=== PATIENT | female | born 1955 | race Caucasian/White ===

== ENCOUNTER 2016-11-25 13:00 | Emergency (ER) | payer BC ==
[~2016-11-25] VITALS: Ht 172.7 cm; Wt 84.5 kg
[2016-11-25 13:00] VITALS: TEMP 36.5; Ht 172.7 cm; Wt 84.5 kg
[2016-11-25] MEDS ORDERED: LABETALOL HCL IV 5 MG/ML 20ML IV STA (13:32)
[2016-11-25] MEDS ORDERED: MECLIZINE HCL 25 MG TAB PO STA (13:32)
--- NOTE | 2016-11-25 13:46 | EMERGENCY ROOM VISIT NOTE ---
History Report prepared by Victoriano: Eugene Whatley Under the Supervision of: Dr. Maegan Roberts M.D. First contact with patient: 13:21 Chief Complaint: VERTIGO Stated Complaint: VERTIGO/ANXIETY History of Present Illness The patient is a 60 year old female who presents to the Emergency Room with complaints of vertigo that occurred this morning. The patient was watching clips from her son's wedding when her vertigo symptoms began. She was diagnosed with positional vertigo in 2007 and has been doing therapy and treatments for it since. She has been handling it well. Her symptoms began with a racing heart , then progressed to nausea, lightheadedness, a motion sensation, and emesis. She states that fast rapid movement triggers her vertigo. She denies any cardiac history. She denies any visual changes, headaches, and stroke-like symptoms. She was placed onto Lisinopril and HCTZ a couple of weeks ago, with improvement to her blood pressure. Source of History: patient Onset: this morning Position: other (global) Symptom Intensity: moderate Quality: other (vertigo) Timing: resolved Modifying Factors (Worsening): other (Rapid movements) Associated Symptoms: + nausea, + vomiting, No headache Note: She denies any visual changes or stroke-like symptoms. She had a motion sensation and lightheadedness. Review of Systems See HPI for pertinent positives & negatives. A total of 10 systems reviewed and were otherwise negative. Past Medical & Surgical Medical Problems: (1) BPV (benign positional vertigo) (2) HTN (hypertension) Family History Omitted secondary to age. Social History Smoking Status: Never Smoker Smokeless Tobacco Use: No Drug Use: none Marital Status: Housing Status: lives with family Occupation Status: employed Current/Historical Medications Scheduled Lisinopril/Hctz (Zestoretic 20MG/12.5MG), 1 TAB PO QAM Allergies Coded Allergies: No Known Allergies (Unverified , 11/25/16) Physical Exam Vital Signs Date Time Temp Pulse Resp B/P Pulse Ox O2 Delivery O2 Flow Rate FiO2 11/25/16 15:36 79 18 152/101 98 11/25/16 15:00 85 20 167/105 100 Room Air 11/25/16 13:33 90 11/25/16 13:00 36.5 78 20 181/100 100 Room Air Physical Exam Vital signs reviewed. General: Well-appearing elderly, in no significant distress. HEENT: No scleral icterus, PERRLA, neck supple. Atraumatic. Cardiovascular: Regular rate and rhythm, no extra sounds. Markedly hypertensive. Pulmonary: Clear to auscultation bilaterally, normal work of breathing. Abdomen: Soft, nontender, nondistended, positive bowel sounds. Musculoskeletal: Atraumatic, no peripheral edema. Neurologic: Patient awake alert and oriented x 3, full strength in all 4 extremities. Cranial nerves 2 through 12 grossly intact. Skin: Warm, dry, no rash Medical Decision & Procedures ER Provider Diagnostic Interpretation: X-ray results as stated below per interpretation by me and the radiologist: CHEST ONE VIEW PORTABLE CLINICAL HISTORY: tachycardia, vertigo COMPARISON STUDY: No previous studies for comparison. FINDINGS: The bones soft tissues and hemidiaphragms are normal. The cardiomediastinal silhouette is normal. The lungs are clear. The pulmonary vasculature is normal. IMPRESSION: Negative chest. Electronically signed by: Ryan Ogden M.D. 11/25/2016 2:22 PM Dictated Date/Time: 11/25/2016 2:[address] NON[address]AST CT DOSE: 614.27 mGy.cm HISTORY: Mental status change vertigo, HTN TECHNIQUE: Multiaxial CT images of the head were performed without the use of intravenous contrast. Comparison: None. Findings: The paranasal sinuses and mastoid air cells are clear. The calvarium and skull base are intact. The ventricles and sulci are within normal limits. There is no mass, hematoma, midline shift, or acute infarct. Impression: No acute intracranial abnormality. Electronically signed by: Ryan Ogden M.D. 11/25/2016 3:16 PM Dictated Date/Time: 11/25/2016 3:15 PM Laboratory Results 11/25/16 13:30 Red Blood Count 5.11, Mean Corpuscular Volume 88.8, Mean Corpuscular Hemoglobin 31.1, Mean Corpuscular Hemoglobin Concent 35.0, Mean Platelet Volume 9.2, Neutrophils (%) (Auto) 60.6, Lymphocytes (%) (Auto) 26.8, Monocytes (%) (Auto) 10.9, Eosinophils (%) (Auto) 1.1, Basophils (%) (Auto) 0.3, Neutrophils # (Auto ) 2.17, Lymphocytes # (Auto) 0.96, Monocytes # (Auto) 0.39, Eosinophils # (Auto ) 0.04, Basophils # (Auto) 0.01 11/25/16 13:30 Test 11/25/16 13:30 White Blood Count 3.58 K/uL (4.8-10.8) Red Blood Count 5.11 M/uL (4.2-5.4) Hemoglobin 15.9 g/dL (12.0-16.0) Hematocrit 45.4 % (37-47) Mean Corpuscular Volume 88.8 fL (80-100) Mean Corpuscular Hemoglobin 31.1 pg (25-34) Mean Corpuscular Hemoglobin Concent 35.0 g/dl (32-36) Platelet Count 258 K/uL (130-400) Mean Platelet Volume 9.2 fL (7.4-10.4) Neutrophils (%) (Auto) 60.6 % Lymphocytes (%) (Auto) 26.8 % Monocytes (%) (Auto) 10.9 % Eosinophils (%) (Auto) 1.1 % Basophils (%) (Auto) 0.3 % Neutrophils # (Auto) 2.17 K/uL (1.4-6.5) Lymphocytes # (Auto) 0.96 K/uL (1.2-3.4) Monocytes # (Auto) 0.39 K/uL (0.11-0.59) Eosinophils # (Auto) 0.04 K/uL (0-0.5) Basophils # (Auto) 0.01 K/uL (0-0.2) RDW Standard Deviation 39.3 fL (36.4-46.3) RDW Coefficient of Variation 12.3 % (11.5-14.5) Immature Granulocyte % (Auto) 0.3 % Immature Granulocyte # (Auto) 0.01 K/uL (0.00-0.02) Anion Gap 7.0 mmol/L (3-11) Est Creatinine Clear Calc Drug Dose 82.0 ml/min Estimated GFR () 90.2 Estimated GFR (Non- 77.8 BUN/Creatinine Ratio 21.0 (10-20) Calcium Level 9.9 mg/dl (8.5-10.1) Magnesium Level 2.1 mg/dl (1.8-2.4) Total Bilirubin 1.0 mg/dl (0.2-1) Direct Bilirubin 0.2 mg/dl (0-0.2) Aspartate Amino Transf (AST/SGOT) 19 U/L (15-37) Alanine Aminotransferase (ALT/SGPT) 31 U/L (12-78) Alkaline Phosphatase 51 U/L (45-117) Total Protein 7.1 gm/dl (6.4-8.2) Albumin 4.5 gm/dl (3.4-5.0) Laboratory results per my review. Medications Administered Medications (Trade) Dose Ordered Sig/Chidi Route Start Time Stop Time Status Last Admin Dose Admin Meclizine HCl (Antivert Tab) 25 mg NOW STAT PO 11/25/16 13:32 11/25/16 13:35 DC 11/25/16 13:54 25 MG Labetalol HCl (Normodyne IV) 10 mg NOW STAT IV 11/25/16 13:32 11/25/16 13:35 DC 11/25/16 13:58 10 MG Ondansetron HCl (Zofran Inj) 4 mg NOW STAT IV 11/25/16 15:23 11/25/16 15:25 DC 11/25/16 15:36 4 MG HCTZ/Lisinopril (Prinzide 20-12.5MG Tab) 1 tab NOW STAT PO 11/25/16 15:41 11/25/16 15:43 DC 11/25/16 15:59 1 TAB ECG Indication: other (Vertigo) Rate (beats per minute): 81 Rhythm: normal sinus Findings: no acute ischemic change, no ectopy, other (Prolonged QTC of 483) ED Course 1321: Past medical records reviewed. The patient was evaluated in room B12. A complete history and physical examination was performed. 1332: Ordered Labetalol HCl 10 mg IV, Antivert Tab 25 mg PO 1523: Ordered Zofran Inj 4 mg IV 1527: I [place] Dr. Jacob [place] [facility]. Please see the consultation note for more information. 1541: Ordered Lisinopril/HCTZ 1 tab PO 1545: Upon reevaluation, the patient appeared to have improvement of her symptoms. I discussed findings with her. She verbalized agreement of the treatment plan. She was discharged home. Medical Decision Differential diagnosis: Etiologies such as benign positional vertigo, dehydration, hypovolemia, anemia, tumor, infection, hypoglycemia, electrolyte abnormalities, cardiac sources, intracerebral event, toxicologic, neurologic, hypertensive urgency as well as others were entertained. This patient was evaluated and appeared to be in no significant distress. IV access was obtained and laboratory work was drawn. The patient was placed on the pvc monitor and found to be in a normal sinus rhythm. She was also found be markedly hypertensive. Patient was medicated with 10 mg of IV labetalol and 25 mg of meclizine. Laboratory work reveals negative cardiac enzymes. EKG reveals no evidence of acute ischemia. On reevaluation the patient was feeling improved. I suspect she is more likely suffering from hypertensive urgency. The patient currently takes lisinopril/HCTZ 20/12.5. I discussed the case with the hospitalist, Dr. James who has recommended doubling this medication. The patient was informed and advised to take lisinopril/HCTZ 40/25 1 time daily. She'll follow-up with her physician, Dr. Ocasio, this week for reevaluation. The patient was advised to return to the ER immediately for worsening of symptoms or any medical concerns. Consults Time Called: 1524 Consulting Physician: Dr. James - [facility] Returned Call: 1527 He and I spoke at this time. He recommended doubling her Lisinopril/HCTZ. Impression Primary Impression: Hypertensive urgency Scribe Attestation The scribe's documentation has been prepared under my direction and personally reviewed by me in its entirety. I confirm that the note above accurately reflects all work, treatment, procedures, and medical decision making performed by me. Departure Information Dispostion Home / Self-Care Referrals Anya Ocasio M.D. (PCP) Forms HOME CARE DOCUMENTATION FORM, IMPORTANT VISIT INFORMATION, WORK / SCHOOL INSTRUCTIONS Patient Instructions My [facility] Additional Instructions Diagnosis: Hypertensive urgency Increase your lisinopril HCTZ 40/25mg daily Contact Dr Ocasio this week for reevaluation. Return to emergency for worsening of symptoms or any medical concerns.
[2016-11-25 13:48] LABS: BASO % 0.3 %; BASO ABS # 0.01 K/uL (0-0.2); COMPLETE YES; EOS % 1.1 %; HEMATOCRIT 45.4 % (37-47); IG% 0.3 %; LYMPH % 26.8 %; LYMPH ABS # 0.96 K/uL (1.2-3.4); MEAN CELL VOLUME 88.8 fL (80-100); MEAN CORPUSCULAR HEMOGLOBIN 31.1 pg (25-34); MEAN PLATELET VOLUME 9.2 fL (7.4-10.4); MONO % 10.9 %; NEUT % 60.6 %; PLATELET COUNT 258 K/uL (130-400); RED BLOOD COUNT 5.11 M/uL (4.2-5.4); WHITE BLOOD COUNT 3.58 K/uL (4.8-10.8)
[2016-11-25 14:15] LABS: CALCIUM 9.9 mg/dl (8.5-10.1); CREATININE 0.81 mg/dl (0.60-1.20); MAGNESIUM 2.1 mg/dl (1.8-2.4); POTASSIUM 3.3 mmol/L (3.5-5.1)
--- NOTE | 2016-11-25 14:23 | DIAGNOSTIC IMAGING REPORT ---
CHEST ONE VIEW PORTABLE CLINICAL HISTORY: tachycardia, vertigo COMPARISON STUDY: No previous studies for comparison. FINDINGS: The bones soft tissues and hemidiaphragms are normal. The cardiomediastinal silhouette is normal. The lungs are clear. The pulmonary vasculature is normal. IMPRESSION: Negative chest. Electronically signed by: Ryan Ogden M.D. 11/25/2016 2:22 PM Dictated Date/Time: 11/25/2016 2:21 PM
--- NOTE | 2016-11-25 15:17 | DIAGNOSTIC IMAGING REPORT ---
HEAD CT NONCONTRAST CT DOSE: 614.27 mGy.cm HISTORY: Mental status change vertigo, HTN TECHNIQUE: Multiaxial CT images of the head were performed without the use of intravenous contrast. Comparison: None. Findings: The paranasal sinuses and mastoid air cells are clear. The calvarium and skull base are intact. The ventricles and sulci are within normal limits. There is no mass, hematoma, midline shift, or acute infarct. Impression: No acute intracranial abnormality. Electronically signed by: Ryan Ogden M.D. 11/25/2016 3:16 PM Dictated Date/Time: 11/25/2016 3:15 PM
[2016-11-25] MEDS ORDERED: ONDANSETRON INJ 2 MG/ML 2 ML VIAL IV STA (15:23)
[2016-11-25] MEDS ORDERED: LISI-787 PO (15:32)
[2016-11-25 15:36] VITALS: BP 152/101; PULSE 79; O2SAT 98
[2016-11-25] MEDS ORDERED: LISINOPRIL/HCTZ 20/12.5MG TAB PO STA (15:41)
== END 2016-11-25 16:00 | disposition home or self-care (01) ==
LOC: C.EDB 13:00 → EDBD 13:00 → C.EDB 16:00
DX: I10 Essential (primary) hypertension (principal); H81.10 Benign paroxysmal vertigo, unspecified ear; Z79.899 Other long term (current) drug therapy

== ENCOUNTER → 2016-12-08 | Outpatient (CLI) | payer BC ==
[~2016-12-08] MED LIST: LISI-787 PO
== END ==
LOC: C.PAPS 12:34
PROVIDERS: ATTEND Obstetrics & Gynecology
DX: Z01.419 Encounter for gynecological examination (general) (routine) without abnormal findings (principal)

== ENCOUNTER → 2016-12-22 | Outpatient (CLI) | payer BC ==
--- NOTE | 2016-12-22 16:16 | MAMMOGRAPHY REPORT ---
BILATERAL DIGITAL SCREENING MAMMOGRAM WITH CAD: 12/22/2016 CLINICAL HISTORY: Routine screening. Patient has no complaints. TECHNIQUE: Current study was also evaluated with a Computer Aided Detection (CAD) system. Bilateral CC and MLO views were obtained. COMPARISON: Comparison is made to exams dated: 02/05/2013 mammogram, 01/16/2012 mammogram, 01/03/2011 m ammogram - [facility], 08/26/2008, 11/04/2004 mammogram, and 11/27/2002 mammogram - [facility]. BREAST COMPOSITION: There are scattered areas of fibroglandular density in both breasts. FINDINGS: No suspicious masses, calcifications, or areas of architectural distortion are noted in ei ther breast. There has been no significant interval change compared to prior exams. IMPRESSION: ACR BI-RADS CATEGORY 1: NEGATIVE There is no mammographic evidence of malignancy. A 1 year screening mammogram is recommended. The pa tient will receive written notification of the results. Approximately 10% of breast cancers are not detected with mammography. A negative mammographic report should not delay biopsy if a clinically suggestive mass is present. Serenity Khalil M.D. /:12/22/2016 15:54:55 Pipe Layer Helper: Lorie PEREZ(Raphael)(), [facility] letter sent: Normal 1/2 BI-RADS Code: ACR BI-RADS Category 1: Negative
== END | disposition home or self-care (01) ==
LOC: C.MAMM 15:25
PROVIDERS: ATTEND Obstetrics & Gynecology
DX: Z12.31 Encounter for screening mammogram for malignant neoplasm of breast (principal)

== ENCOUNTER 2024-06-01 12:18 | Inpatient (IN) ==
--- OUTSIDE RECORDS SUMMARY | 2024-06-01 12:21 | External Medical Summary | Continuity of Care Document ---
Author Name Unknown Organization [facility] [place] [id number] [place] [address] [phone] Care Team Providers Care Architect Naval Name Role Phone Anya Ocasio Primary Care Physician [phone] Encounter [facility] [id number] Date(s): 03/05/24 - 03/05/24 [facility] [address] Medical [facility] [address] [facility] [address] [place] [address] [phone] Encounter Diagnosis Atrial fibrillation, new onset(Discharge Diagnosis) - 03/05/24 Discharge Disposition: Home or Self Care Attending Physician: JANET Golden Kimberly A Allergies, Adverse Reactions, Alerts Substance Criticality Severity Reaction Reaction Severity Status Allergy Not found in Search 1 Facial Swelling Active 1Bell peppers of all colors Assessment and Plan Extracted from: Title:Hospital followup Author:JANET Golden Kim berly A Date:03/05/24 1.Atrial fibrillation, new onset STATUS:New diagnosis, uncertain prognosis -[place] out west [place] friends in -Developed "racing heart" in [place] on 02/19/24 -Symptoms lasted throughout the day, prompting ER evaluation. -Discovered to be in A. Fib with RVR, rate of 159 in ER. -Managed with IV Diltiazem and fluids but remained symptomatic -Unfortunately, continued to be in irregular rhythm so decision was made to admit, discharged on 02/20/24 -She did convert back to sinus rhythm later that night but unfortunately continued to experience paroxysmalA. Fib with RVR. -IV Diltiazem was held during admission due to significant hypotension (systolic readings in 80's). -Labs and CXR were unremarkable -She was discharged in improved condition on PO Diltiazem and Eliquis due to elevated CHADS score. -She has been tracking her BP and HR since discharge, occasionally noting runs of A. Fib lasting for a short duration -Denies any syncope, CP, SOB, dizziness but does have significant anxiety regarding her health. DATA:Labs reviewed. GOAL:Maintain stability. PLAN:Cont current monitoring. Change to Diltiazem [id number] daily continue Eliquis 5mg twice daily For now, continue Lisinopril. If BP drops under 110/70, hold Lisinopril ER precautions discussedifHR increases to 150's or greater and you are symptomatic Referral will be made to Dr. Vallecillo for additional management and testing Will order echocardiogram and Holter depending on Recommend short trips until cardiology followup. Stay hydrated as discussed Avoid excessive caffeine. Recommend no alcohol as well. Time spent on pre-visit plannin min Face to face time spent w/ patient: 40 min Time spent documenting pertinent clinical information into the EMR: 8 min Total time: 51 min Immunizations Given and Recorded Vaccine Date Status Refusal Reason SARS-CoV-2 (COVID-19) mRNA BNT-162b2 vax 1 05/16/21 Recorded pneumococcal 23-valent vaccine 2 03/30/21 Recorded SARS-CoV-2 (COVID-19) ChAdOx1 vaccine 09/29/20 Rec orded SARS-CoV-2 (COVID-19) ChAdOx1 vaccine 09/08/20 Rec orded zoster vaccine, inactivated 09/15/19 Given zoster vaccine, inactivated 06/03/19 Given tetanus/diphtheria/pertuss, acel (Tdap) 06/03/19 G iven pneumococcal 13-valent vaccine 06/03/19 Given influenza virus vaccine, inactivated 05/08/19 Give n 1Result Comment: 2022-08-10: Historical information-source unspecified 2Result Comment: 2022-08-10: Historical information-source unspecified Medications DilTIAZem (Eqv-Cardizem CD) 120 mg/24 hours oral capsule, extended release Start: 03/05/24 7:59:00 AM EDT, 1 cap, PO, Daily, Disp# 90 cap, Pharmacy: [id number] Start Date: 03/05/24 Stop Date: 06/03/24 Status: Ordered Eliquis 5 mg oral tablet Start: 03/05/24 7:14:00 AM EDT, 1 tab, PO, bid Start Date: 03/05/24 Status: Ordered Eliquis 5 mg oral tablet Start: 03/05/24 8:00:00 AM EDT, 1 tab, PO, bid, Disp# 180 tab, Pharmacy: [id number] Start Date: 03/05/24 Stop Date: 06/03/24 Status: Ordered ibandronate 150 mg oral tablet Start: 11/29/23 7:25:00 PM EDT, See Instructions, Disp# 3 tab, Refills: 3, TAKE 1 TABLET EVERY MONTH,Pharmacy: [facility] Start Date: 11/29/23 Status: Ordered lisinopril 10 mg oral tablet Start: 10/16/23 1:14:00 PM EDT, 1 tab, PO, Daily, Disp# 90 tab, Refills: 3, Pharmacy: [id number] Start Date: 10/16/23 Status: Ordered omeprazole 20 mg oral delayed release capsule Start: 03/05/24 8:17:00 AM EDT, 1 cap, PO, Daily, Disp# 90 cap, Pharmacy: [id number] Start Date: 03/05/24 Stop Date: 06/03/24 Status: Ordered Suprep Bowel Prep Kit oral liquid Start: 11/21/23 7:07:00 AM EDT, See Instructions, Disp# 354 mL, Refills: 0, Follow [facility] Pharmacy: [id number] Start Date: 11/21/23 Status: Ordered Vitamin D3 1000 intl units (25 mcg) oral capsule Start: 03/24/21 8:20:00 AM EDT, 1 cap, PO, Daily Start Date: 03/24/21 Status: Ordered Mental Status 03/05/24 Barriers to Learning one year None evide nt Mandatory Health Literacy Documentation Yes Health Literacy Communication Barriers N ever Primary Language Northern Irish Problem List Condition Confirmation Course Effective Dates Status H ealth Status Informant Hypertension, benign Confirmed Active Benign paroxysmal positional vertigo Confirmed Active Grade II diastolic dysfunction 1 Confirmed Active Difficulty swallowing solids Confirmed Active Heart murmur Confirmed Active Hernia, hiatal Confirmed Active IT band syndrome Confirmed Active Mild concentric left ventricular hypertrophy (LVH) 2 Confirmed Active Mild pulmonary hypertension 3 Confirmed Active Osteoarthritis of right hip Confirmed Active Osteoporosis Confirmed Active Trochanteric bursitis of right hip Confirmed Active Vitamin D insufficiency Confirmed Active 1echo aug 2022 2echo aug 2022 3echo aug 2022 PA pressure - 29 Diagnosis Diagnosis Type Effective Dates Health Status Cl inical Service Informant Atrial fibrillation, new onset Discharge Diagnosis 03/05/24 Non-Specified Procedures Procedure Date Related Diagnosis Body Site Status Colonoscopy 1, 2, 3 12/04/23 Compl eted EGD - esophagogastroduodenoscopy 4, 5 12/04/23 Completed DEXA (dual energy X-ray absorptiometry) of lateral spine 6 05/19/21 Completed Mammogram 7 05/19/21 Completed Bone density scan 8 04/10/19 Compl eted Cervical cytology brush 9 01/15/19 Completed Mammogram 10 11/26/18 Completed Colonoscopy 11 11/21/18 Completed Mammogram 12 12/22/16 Completed PAP test date 13, 14 12/08/16 Comp leted Chest x-ray 15 11/25/16 Completed EKG 16 11/25/16 Completed Emergency medical services 17 11/25/[address] brain w/o contrast 18 11/26/15 Completed Esophagogastroduodenoscopy Completed Repair of vaginal tear Co mpleted 1- One 3 mm polyp at the hepatic flexure, removed with a cold biopsy forceps. Resected and retrieved. - One 3 mm polyp at 45 cm proximal to the anus, removed with a cold biopsy forceps. Resected and retrieved. - Redundant colon. - The examination was otherwise normal on direct and retroflexion views. 2C) Hepatic flexure polyp, polypectomy: Colonic mucosa with lymphoid aggregate, negative for intraepithelial neoplasm. D) Colon polyp at 45 cm, polypectomy: Hyperplastic polyp. 3Repeat colonoscopy in 5 years for family history of colon cancer. 4- Esophagogastric landmarks identified. - 1 cm hiatal hernia. - Mild Schatzki ring. Biopsied. - Erythematous mucosa in the antrum. Biopsied. - Normal examined duodenum. - The examination was otherwise normal. 5A) Gastric antrum, biopsy: Congestion and epithelial repair compatible with reactive gastropathy-healing erosive gastritis. COMMENT: No Helicobacter pylori organisms can be identified on an immunohistochemical stain for H. pylori. B) Gastroesophageal junction, biopsy: Squamous mucosa with patchy, mild epithelial repair. Gastric columnar mucosa with mild chronic inflammation and epithelial repair. COMMENT: No intestinal metaplasia or dysplasia identified. The histologic findings in B may correlate with symptoms of reflux. 6Impression: AP Spine L1-L4 is 0.811 g/cm2 with T score of -3.1 Femur Neck Left is 0.808 g/cm2 with T score of -1.7. Femur Neck Right is 0.764 g/cm2 with T score of -2.0. Femur Total Left is 0.840 g/cm2 with T score of -1.3 Femur Total Right is 0.784 g/cm2 with T score of -1.8. Z - score of 1.5, this patient's BMD is low for someone of this age 7There is no mammographic evidence of malignancy 8AP spine L1- L4 is 0.794 with a T score of -3.2 Femur Neck left is 0.829 with a Tscore of -1.5 Femur Neck right is 0.765 with a Tscore of -2.0 Femur Total Mean is 0.769 with a T score of -1.9 Z score of -1.6 , this patients BMD is low for someone of this age 9Negative for intraepithelial lesion or malignancy. 10acr bi-rads category 2: benign there is no mammographic evidence of malignancy. a 1 yr screening mammogram is recommended. (11/26/18). the patient will receive written notification of the results 11A few diverticula were found in the sigmoid colon 12No malignancy. One year screening recommended. 13Negative for intraepithealial lesion or malignancy. 14normal exam 15negative 16normal sinus 17[facility] ER with vertigo and hypertension 18no acute intracranial abnormality Vital Signs Most recent to oldest [Reference Range]: 1 Heart Rate 76 bpm (03/05/24 7:15 AM) Respiratory Rate 17 br/min (03/05/24 7:15 AM) Blood Pressure 154/94mmHg (03/05/24 7:15 AM) Cuff Pulse Pressure 60 mmHg (03/05/24 7:15 AM) Social History Social History Type Response Smoking Status Never smoked cigaret lucinda Sex Female Sex Representation Female (finding) FCM Outpt Note * JANET Golden, Fernanda Wade: PERFORM Event Display: FCM Outpt Note Authored Date: [id number] Chief Complaint F/u hospital - Afib History of Present Illness Patient is a 68 yo [place]. A. fib: -traveling out west with friends in [place] -Developed "racing heart" in [place] on 02/19/24 -Symptoms lasted throughout the day, prompting ER evaluation. -Discovered to be in A. Fib with RVR, rate of 159 in ER. -Managed with IV Diltiazem and fluids but remained symptomatic -Unfortunately, continued to be in irregular rhythm so decision was made to admit, discharged on 02/20/24 -She did convert back to sinus rhythm later that night but unfortunately continued to experience paroxysmalA. Fib with RVR. -IV Diltiazem was held during admission due to significant hypotension (systolic readings in 80's). -Labs and CXR were unremarkable -She was discharged in improved condition on PO Diltiazem and Eliquis due to elevated CHADS score. -She has been tracking her BP and HR since discharge, occasionally noting runs of A. Fib lasting for a short duration -Denies any syncope, CP, SOB, dizziness but does have significant anxiety regarding her health. Review of Systems ROS per HPI Physical Exam Vitals & Measurements HR:76(Monitored) RR:17 BP:154/94 SpO2:98% PHQ2 Data(Data Documented on:03/05/2024 07:14) Emotional health assessment NEGATIVE Gen Appearance: Well developed, well nourishedNAD. A&O x 3. HEENT: NCAT. EOMI. Neck supple. No thyromegaly palpable. Lymph: No submandibular, posterior or anterior cervical adenopathy. CV: RRR. No murmurs, rubs, or gallops. Lungs: CTAB. No wheezing, rales or rhonchi. Chest rises symmetrically. Abdomen: Scaphoid. No rashes.NABS x 4. Soft. Non-tender. No CVA tenderness bilaterally.No masses palpable. Ext: No LE edema. + 2 posterior tibial pulses. Skin: [place]. Supple. Good turgor. Assessment/Plan 1.Atrial fibrillation, new onset STATUS:New diagnosis, uncertain prognosis -traveling out west with friends in [place] -Developed "racing heart" in [place] on 02/19/24 -Symptoms lasted throughout the day, prompting ER evaluation. -Discovered to be in A. Fib with RVR, rate of 159 in ER. -Managed with IV Diltiazem and fluids but remained symptomatic -Unfortunately, continued to be in irregular rhythm so decision was made to admit, discharged on 02/20/24 -She did convert back to sinus rhythm later that night but unfortunately continued to experience paroxysmalA. Fib with RVR. -IV Diltiazem was held during admission due to significant hypotension (systolic readings in 80's). -Labs and CXR were unremarkable -She was discharged in improved condition on PO Diltiazem and Eliquis due to elevated CHADS score. -She has been tracking her BP and HR since discharge, occasionally noting runs of A. Fib lasting for a short duration -Denies any syncope, CP, SOB, dizziness but does have significant anxiety regarding her health. DATA:Labs reviewed. GOAL:Maintain stability. PLAN:Cont current monitoring. Change to Diltiazem [id number] daily continue Eliquis 5mg twice daily For now, continue Lisinopril. If BP drops under 110/70, hold Lisinopril ER precautions discussedifHR increases to 150's or greater and you are symptomatic Referral will be made to Dr. Vallecillo for additional management and testing Will order echocardiogram and Holter depending on Recommend short trips until cardiology followup. Stay hydrated as discussed Avoid excessive caffeine. Recommend no alcohol as well. Time spent on pre-visit plannin min Face to face time spent w/ patient: 40 min Time spent documenting pertinent clinical information into the EMR: 8 min Total time: 51 min Problem List/Past Medical History Ongoing Benign paroxysmal positional vertigo Difficulty swallowing solids Grade II diastolic dysfunction Heart murmur Hernia, hiatal Hypertension, benign IT band syndrome Mild concentric left ventricular hypertrophy (LVH) Mild pulmonary hypertension Osteoarthritis of right hip Osteoporosis Trochanteric bursitis of right hip Vitamin D insufficiency Procedure/Surgical History EGD - esophagogastroduodenoscopy| Service Date: 4Colonoscopy| Service Date: 4DEXA (dual energy X-ray absorptiometry) of lateral spine| Service Date: 05/19/2021Mammogram|Service Date: 05/19/2021one density scan| Service Date: 04/10/2019Cervical cytology brush| Service Date: 01/15/2019Mammogram| Service Date: 11/26/2018Colonoscopy| Service Date: 11/21/2018Mammogram| Service Date: 12/22/2016PAP test date| [facility]| Service Date: 11/25/2016EKG| Service Date: 11/25/2016Chest x-ray| Service Date: 11/25/2016CT brain w/o contrast| Service Date: 11/26/2015EsophagogastroduodenoscopyRepair of v aginal tear Medications apixaban(Eliquis 5 mg oral tablet), 5 mg= 1 tab, PO, bid apixaban(Eliquis 5 mg oral tablet), 5 mg= 1 tab, PO, bid cholecalciferol(Vitamin D3 1000 intl units (25 mcg) oral capsule), 25 mcg= 1 cap, PO, Daily dilTIAZem(DilTIAZem (Eqv-Cardizem CD) 120 mg/24 hours oral capsule, extended release), 120 mg= 1 cap, PO, Daily ibandronate(ibandronate 150 mg oral tablet), See Instructions lisinopril(lisinopril 10 mg oral tablet), 1 tab, PO, Daily magnesium sulfate/potassium sulfate/sodium sulfate(Suprep Bowel Prep Kit oral liquid), See Instructions omeprazole(omeprazole 20 mg oral delayed release capsule), 20 mg= 1 cap, PO, Daily Allergies Allergy Not found in SearchFacial Swelling Social History Smoking Status Never smoked cigarettes Alcohol - Comments: red wine - 2 glasses a night. 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 Home/Environment Lives with:Spouse - Comments: 4 kids - [facility], Steven - [place], Manuelito - [place], Sai -[place]. Sister in [place] Other - Comments: none Family History Alcoholism: Father. Antiphospholipid syndrome: Sister. Breast cancer: Mother. Dementia: Father. Rectal cancer: Mother. Schizophrenia: Mother. TIA: Father. Health Status Family Member(s) Immunizations Vaccine Date Status SARS-CoV-2 (COVID-19) mRNA BNT-162b2 vax 05/16/2021 Recorded Comments : 2022-08-10: Historical information-source unspecified pneumococcal 23-valent vaccine 03/30/2021 Recorded Comments : 2022-08-10: Historical information-source unspecified SARS-CoV-2 (COVID-19) ChAdOx1 vaccine 09/29/2020 Recorded SARS-CoV-2 (COVID-19) ChAdOx1 vaccine 09/08/2020 Recorded zoster vaccine, inactivated 09/15/2019 Given zoster vaccine, inactivated 06/03/2019 Given tetanus/diphtheria/pertuss, acel (Tdap) 06/03/2019 Given pneumococcal 13-valent vaccine 06/03/2019 Given influenza virus vaccine, inactivated 05/08/2019 Given Recommendations Health Maintenance Pending(in the next year) OverDue Medicare Annual Wellness Visit due08/10/23and every 1year Adult Influenza Vaccine due01/20/24and every 1year Due Adult COVID-19 Vaccination due03/05/24Unknown Frequency Adult Social Determinants of Health Screening due03/05/24Unknown Frequency Due In Future Body Mass Index not due until10/08/24and every Satisfied(in the past 1 year) Satisfied Body Mass Index on10/08/23.Satisfied by LAM Rocha Donna Breast Cancer Screening on01/03/24.Satisfied by VIVIANA Anthony Lynnae Lipid Screening on10/08/23.Satisfied by Contributor_system, [employer] Electronic Signature on File Electronically Reviewed/Signed by: Fernanda Golden PA-C Author Signature Dt/Tm:03/05/2024 08:50 AM Department of Family Medicine [facility] Patient Care team information Care Team Personnel Name: MD Ocasio Madhavi Position: Physician - Family Med Member Role: Primary Care Provider Address: [address] [place] [address] Care Team Related Persons Name: TATO SORENSON Name: TATO SORENSON
--- OUTSIDE RECORDS SUMMARY | 2024-06-01 12:21 | External Medical Summary | Continuity of Care Document ---
Author Name Unknown Organization [facility] [place] [facility] 1 MB [id number] [place] [address] JAMAL SHERMAN [phone] Care Team Providers Care Clean Room Operator Name Role Phone Fernanda Golden Primary Care Physician [phone] [id number] Date(s): 05/13/24 - 05/13/24 [facility] [place] [facility] 1 MB [id number] [facility] [place] - Main Building [address] [facility] [place] [id number] [phone] Discharge Disposition: Home or Self Care Attending Physician: MD He Soraya M Referring Physician: MD He Soraya M Allergies, Adverse Reactions, Alerts Substance Criticality Severity Reaction Reaction Severity Status Allergy Not found in Search 1 Facial Swelling Active 1Bell peppers of all colors Immunizations Given and Recorded Vaccine Date Status Refusal Reason influenza virus vaccine, inactivated 04/16/24 Raúl rded influenza virus vaccine, inactivated 05/08/19 Give n SARS-CoV-2 (COVID-19) mRNA BNT-162b2 vax 1 05/16/21 Recorded pneumococcal 23-valent vaccine 2 03/30/21 Recorded SARS-CoV-2 (COVID-19) ChAdOx1 vaccine 09/29/20 Rec orded SARS-CoV-2 (COVID-19) ChAdOx1 vaccine 09/08/20 Rec orded zoster vaccine, inactivated 09/15/19 Given zoster vaccine, inactivated 06/03/19 Given tetanus/diphtheria/pertuss, acel (Tdap) 06/03/19 G iven pneumococcal 13-valent vaccine 06/03/19 Given 1Result Comment: 2022-08-10: Historical information-source unspecified 2Result Comment: 2022-08-10: Historical information-source unspecified Medications DilTIAZem (Eqv-Cardizem CD) 120 mg/24 hours oral capsule, extended release Start: 04/22/24 2:14:00 PM EDT, 1 cap, PO, bid, Disp# 180 cap, Refills: 3, [facility]acy: [facility] Start Date: 04/22/24 Stop Date: 04/17/25 Status: Ordered Eliquis 5 mg oral tablet Start: 03/26/24 9:37:00 AM EDT, 1 tab, PO, bid, Disp# 180 tab, Refills: 3, Pharmacy: [facility] Start Date: 03/26/24 Status: Ordered flecainide 50 mg oral tablet Start: 04/15/24 1:56:00 PM EDT, 1 tab, PO, q12h, Disp# 180 tab, Refills: 1, Pharmacy: [facility] Start Date: 04/15/24 Stop Date: 10/12/24 Status: Ordered ibandronate 150 mg oral tablet Start: 11/29/23 7:25:00 PM EDT, See Instructions, Disp# 3 tab, Refills: 3, TAKE 1 TABLET EVERY MONTH,Pharmacy: [facility] Start Date: 11/29/23 Status: Ordered lisinopril 10 mg oral tablet Start: 10/16/23 1:14:00 PM EDT, 1 tab, PO, Daily, Disp# 90 tab, Refills: 3, Pharmacy: [id number] Start Date: 10/16/23 Status: Ordered omeprazole 20 mg oral delayed release capsule Start: 03/05/24 8:17:00 AM EDT, 1 cap, PO, Daily, Disp# 90 cap, Pharmacy: [id number] Start Date: 03/05/24 Stop Date: 06/03/24 Status: Ordered Vitamin D3 1000 intl units (25 mcg) oral capsule Start: 03/24/21 8:20:00 AM EDT, 1 cap, PO, Daily Start Date: 03/24/21 Status: Ordered Problem List Condition Confirmation Course Effective Dates [...] 3echo aug 2022 PA pressure - 29 Procedures Procedure Date Related Diagnosis Body Site [...] or malignancy. 14normal exam 15negative 16normal sinus 17[facility] ER with vertigo and hypertension 18no acute intracranial abnormality Results Radiology Reports * Exam Date Time Procedure Performing Provider Status 05/13/24 2:04 PM Echo Stress, Exercise Solange Martinez; Final Notes: (Echo Stress, Exercise) Reason For Exam: starting flecainide, r/o CAD Echo Stress, Exercise Report Signatures Stress ECG Finalized by Stevie Hutchinson MD on 05/13/2024 02:45 PM Echo Finalized by Stevie Hutchinson MD on 05/13/2024 02:45 PM Stress ECG Promoted to Fellow Dr. Claudia Becerra DO on 05/13/2024 02:32 PM Echo Promoted to Fellow Dr. Claudia Becerra DO on 05/13/2024 02:32 PM [place] Act 112: No-No further action needed Summary 1. Negative Exercise Stress Echocardiogram for ischemia at 89 % MPHR. 2. Exercise tolerance for age and gender is in the 95th percentile. 3. Small, circumferential pericardial effusion is noted (no evidence of tamponade). It was not present on the prior TTE dated 09/06/2022. Supervising: Liu Spangler MS BMI: 23.26 Patient Info Name: VERONICA SORENSON Age: 68 years : 1955 Gender: Female Ht: 171 cm Wt: 68 kg BSA: 1.80 m2 Technical Quality: Fair Exam Date: 05/13/2024 1:25 PM Exam Location: Echo Lab-OP Patient Status: Outpatient Staff Ordering Physician: Cassie He Brain Wave Technician: RAAD Ruiz Attending Physician: Cassie He Study Info CPT 33430 - Indications - starting flecainide, r/o CAD I2510 - Coronary artery disease without angina pectoris Procedure(s) * An Exercise stress echocardiogram was performed. Exam Type: Exercise Stress ECG Summary Negative exercise ECG for ischemia. Protocol: You Rest HR: 81 bpm Peak HR: 134 bpm Rest Sys BP: 132 mmHg Peak Sys BP: 157 mmHg Max Pred HR: 150 bpm % Max Pred HR: 89 % Target HR: 128 bpm Max RPP: 21,038 bpm*mmHg Torres Score: 6 Target HR Summary: Patient's target heart rate was achieved BP Response: Normal blood pressure response Termination Reason: Fatigue Cardiac Symptoms: None Max ST Seg Deviation: 0.00 mm Total Time: 6 min : 0 sec Rest [place] BP: 84 mmHg Peak [place] BP: 78 mmHg Angina Score: None Total METS: 7.00 Stress ECG Details Resting ECG Normal sinus rhythm - RSR' V1 and V2. Stress ECG No abnormal ST/T wave changes with exercise. Arrhythmias Rare PACs. Stress Echo Findings Left Ventricle Left ventricle becomes smaller and more vigorous with exercise. Normal LV wall motion response to exercise. Normal augmentation of all wall segments without evidence of ischemia with stress. Left Ventricle Normal left ventricular size and systolic function with no regional wall motion abnormalities. Estimated ejection fraction 60-65%. Right Ventricle Normal right ventricular size and function. Pericardium Small pericardial effusion WITHOUT evidence of tamponade. Venous Name Value Normal IVC/SVC IVC Diameter (Insp 2D) 0.5 cm IVC Diameter (Exp 2D) 2.3 cm <=2.1 IVC Diameter Percent Change (2D) 79 % >=50 Ventricles Name Value Normal LV Dimensions 2D/MM IVS Diastolic Thickness (2D) 1.0 cm 0.6-0.9 LVID Diastole (2D) 3.7 cm 3.3-5.1 LVIW Diastolic Thickness (2D) 1.0 cm 0.6-0.9 LVID Systole (2D) 2.2 cm 2.2-3.5 LV Mass (2D Cubed) 111.38 g 67.00-162.00 LV Mass Index (2D Cubed) 0.01 g/cm2 0.00-0.01 Relative Wall Thickness (2D) 0.52 LV Fractional Shortening/Ejection Fraction 2D/MM LV Fractional Shortening (2D) 42 % 27-45 Final Signed by:MD Jasper, Stevie Faria Signed (Electronic Signature):05/13/2024 1:25 p Social History Social History Type Response Smoking Status Never smoked cigaret lucinda Sex Female Sex Representation Female (finding) Cardiology * Contributor_system, MUSE01: VERIFY, PERFORM Event Display: Exercise Testing Authored Date: Please click on link to see image. Patient Care team information Care Team Personnel Name: JANET Golden Kimberly A Position: Physician Asst Exmpt - Family Med Member Role: Primary Care Provider Address: [facility] [address] [address] Care Team Related Persons Name: TATO SORENSON Name: TATO SORENSON
--- OUTSIDE RECORDS SUMMARY | 2024-06-01 12:21 | External Medical Summary | Continuity of Care Document ---
Author Name Unknown Organization [address] Address [address] [place], [place] [id number] Care Team Providers Care Cable Inspector Name Role Phone Fernanda Golden Mauro Primary Care Physician [phone] [id number] Date(s): 04/25/24 - 04/25/[address], [address] [place] [address] [phone] Encounter Diagnosis Afib(Discharge Diagnosis) - 04/25/24 Discharge Disposition: Home or Self Care Attending Physician: MD Neri, Cassie Reardon Allergies, Adverse Reactions, Alerts Substance Criticality Severity [...] bid, Disp# 180 cap, Refills: 3, [facility] Start Date: 04/22/24 Stop Date: 04/17/25 Status: Ordered Eliquis 5 mg oral tablet Start: 03/26/24 9:37:00 AM EDT, 1 tab, PO, bid, Disp# 180 tab, Refills: 3, Pharmacy: [facility] Start Date: 03/26/24 Status: Ordered flecainide 50 mg oral tablet Start: 04/15/24 1:56:00 PM EDT, 1 tab, PO, q12h, Disp# 180 tab, Refills: 1, Pharmacy: [facility] Start Date: 04/15/24 Stop Date: 10/12/24 Status: Ordered ibandronate 150 mg oral tablet Start: 11/29/23 7:25:00 PM EDT, See Instructions, Disp# 3 tab, Refills: 3, TAKE 1 TABLET EVERY MONTH,Pharmacy: [facility] Start Date: 11/29/23 Status: Ordered lisinopril 10 mg oral tablet Start: 10/16/23 1:14:00 PM EDT, 1 tab, PO, Daily, Disp# 90 tab, Refills: 3, Pharmacy: [id number] Start Date: 10/16/23 Status: Ordered omeprazole 20 mg oral delayed release capsule Start: 03/05/24 8:17:00 AM EDT, 1 cap, PO, Daily, Disp# 90 cap, Pharmacy: [id number] Start Date: 03/05/24 Stop Date: [...] Diagnosis Diagnosis Type Effective Dates Health Status Clini migel Service Informant Afib Discharge Diagnosis 04/25/24 Non-Specified Procedures Procedure Date Related Diagnosis Body [...] or malignancy. 14normal exam 15negative 16normal sinus [facility] with vertigo and hypertension 18no acute intracranial abnormality Social History Social History Type Response Smoking Status Never smoked cigaret lucinda Sex Female Sex Representation Female (finding) Patient Care team information Care Team Personnel Name: JANET Golden Kimberly A Position: Physician Asst Exmpt - Family Med Member Role: Primary Care Provider Address: [facility] [address] [place] [address], [place] [address] Care Team Related Persons Name: TATO SORENSON Name: TATO SORENSON
--- OUTSIDE RECORDS SUMMARY | 2024-06-01 12:21 | External Medical Summary | Continuity of Care Document ---
Author Name Unknown Organization [address] Address [address] [place], [place] [id number] Care Team Providers Care Awake Overnight Monitor Name Role Phone Fernanda Golden Mauro Primary Care Physician [phone] Encounter [facility] [id number] Date(s): 04/03/24 - 04/03/[address], [address] [place] [address] [phone] Encounter Diagnosis A-fib(Discharge Diagnosis) - 04/03/24 Discharge Disposition: Home or Self Care Attending [...] 03/05/24 7:59:00 AM EDT, 1 cap, PO, bid, Disp# 180 cap, Pharmacy: [id number] Start Date: 03/05/24 Stop Date: 06/03/24 Status: Ordered Eliquis 5 mg oral tablet Start: 03/26/24 9:37:00 AM EDT, 1 tab, PO, bid, Disp# 180 tab, Refills: 3, Pharmacy: [facility] Start Date: 03/26/24 Status: Ordered ibandronate 150 mg oral tablet Start: 11/29/23 7:25:00 PM EDT, See Instructions, Disp# 3 tab, Refills: 3, TAKE 1 TABLET EVERY MONTH,Pharmacy: [facility] Start Date: 11/29/23 Status: Ordered lisinopril 10 mg oral tablet Start: 10/16/23 1:14:00 PM EDT, 1 tab, PO, Daily, Disp# 90 tab, Refills: 3, Pharmacy: [id number] Start Date: 10/16/23 Status: Ordered omeprazole 20 mg oral delayed release capsule Start: 03/05/24 8:17:00 AM EDT, 1 cap, PO, Daily, Disp# 90 cap, Pharmacy: [id number] Start Date: 03/05/24 Stop Date: 06/03/24 Status: Ordered Vitamin D3 1000 intl units (25 mcg) oral capsule Start: 03/24/21 8:20:00 AM EDT, 1 cap, PO, Daily Start Date: 03/24/21 Status: Ordered Mental Status 04/03/24 Barriers to Learning one year None evide nt Mandatory Health Literacy Documentation Yes Health Literacy Communication Barriers N ever Primary Language Montenegrin Problem List Condition Confirmation Course Effective Dates [...] Dates Health Status Clini migel Service Informant A-fib Discharge Diagnosis 04/03/24 Non-Specified Procedures Procedure Date Related Diagnosis Body [...] or malignancy. 14normal exam 15negative 16normal sinus 17[facility] ER with vertigo and hypertension 18no acute intracranial abnormality Vital Signs Most recent to oldest [Reference Range]: 1 Patient Weight 68.4 kg (04/03/24 10:41 AM) Heart Rate 77 bpm (04/03/24 10:41 AM) Respiratory Rate 18 br/min (04/03/24 10:41 AM) Blood Pressure 140/80mmHg (04/03/24 10:41 AM) Cuff Pulse Pressure 60 mmHg (04/03/24 10:41 AM) Social History Social History Type Response Smoking Status Never smoked cigaret lucinda Sex Female Sex Representation Female (finding) Patient Care team information Care Team Personnel Name: JANET Golden Kimberly A Position: Physician Asst Exmpt - Family Med Member Role: Primary Care Provider Address: [facility] [address] [address] Care Team Related Persons Name: TATO SORENSON Name: TATO SORENSON
--- OUTSIDE RECORDS SUMMARY | 2024-06-01 12:21 | External Medical Summary | Continuity of Care Document ---
Author Name Unknown Organization [facility] [address] [place] [address] JAMAL SHERMAN [phone] Care Team Providers Care Financial Investment Adviser Name Role Phone Anya Ocasio Primary Care Physician [phone] [facility] [id number] Date(s): 03/19/24 - 03/19/24 [facility] [place] [address], [address] JAMAL Castelan [address] [phone] Discharge Disposition: Home or Self Care Attending Physician: MD Clark Andrew Referring Physician: MD Ocasio Madhavi Allergies, Adverse Reactions, Alerts Substance Criticality Severity [...] cap, PO, Daily, Disp# 90 cap, Pharmacy: [id number] Start Date: 03/05/24 Stop Date: 06/03/24 Status: Ordered Eliquis 5 mg oral tablet Start: 03/05/24 7:14:00 AM EDT, 1 tab, PO, bid Start Date: 03/05/24 Status: Ordered Eliquis 5 mg oral tablet Start: 03/05/24 8:00:00 AM EDT, 1 tab, PO, bid, Disp# 180 tab, Pharmacy: [id number] Start Date: 03/05/24 Stop Date: 06/03/24 Status: Ordered ibandronate 150 mg oral tablet Start: 11/29/23 7:25:00 PM EDT, See Instructions, Disp# 3 tab, Refills: 3, TAKE 1 TABLET EVERY MONTH,Pharmacy: [facility] Start Date: 11/29/23 Status: Ordered lisinopril 10 mg oral tablet Start: 10/16/23 1:14:00 PM EDT, 1 tab, PO, Daily, Disp# 90 tab, Refills: 3, Pharmacy: [facility] Start Date: 10/16/23 Status: Ordered omeprazole 20 mg oral delayed release capsule Start: 03/05/24 8:17:00 AM EDT, 1 cap, PO, Daily, Disp# 90 cap, Pharmacy: [id number] Start Date: 03/05/24 Stop Date: 06/03/24 Status: Ordered Suprep Bowel Prep Kit oral liquid Start: 11/21/23 7:07:00 AM EDT, See Instructions, Disp# 354 mL, Refills: 0, Follow [facility] Pharmacy: [id number] Start Date: 11/21/23 Status: [...] or malignancy. 14normal exam 15negative 16normal sinus 17[facility] ER with vertigo and hypertension 18no acute intracranial abnormality Social History Social History Type Response Smoking Status Never smoked cigaret lucinda Sex Female Sex Representation Female (finding) Patient Care team information Care Team Personnel Name: MD Ocasio Madhavi Position: Physician - Family Med Member Role: Primary Care Provider Address: [facility] [address] [place] [address] [place] Care Team Related Persons Name: TATO SORENSON Name: TATO SORENSON
[2024-06-01 12:48] LABS: Basophils # (auto) 0.04 K/uL (0.00-0.20); Basophils % (auto) 0.6 %; Eosinophils # (auto) 0.07 K/uL (0.00-0.50); Eosinophils % (auto) 1.1 %; Hematocrit (blood only) 41.3 % (37.0-47.0); Hemoglobin 13.6 g/dl (12.0-16.0); Immature Granulocytes # (auto) 0.02 K/uL (0.01-0.20); Immature Granulocytes % (auto) 0.3 %; Mean Corpuscular Hemoglobin 29.8 pg (25.0-34.0); Mean Corpuscular Hgb Conc 32.9 g/dL (32.0-36.0); Mean Corpuscular Volume 90.6 fL (80.0-100.0); Mean Platelet Volume 8.9 fL (9.4-12.4); Monocytes # (auto) 0.81 K/uL (0.11-0.59); Monocytes % (auto) 12.2 %; Neutrophils # (auto) 4.92 K/uL (1.40-6.50); Neutrophils % (auto) 73.8 %; Platelet Count 398 K/uL (130-400); RDW Standard Deviation 42.8 fL (36.4-46.3); Red Blood Count 4.56 M/uL (4.20-5.40); White Blood Count 6.66 K/ul (4.8-10.8)
--- NOTE | 2024-06-01 12:57 | XRay Report ---
XR chest 1V not portable CLINICAL HISTORY: Chest pain, nonspecific COMPARISON STUDY: Chest radiograph November 25, 2016. FINDINGS: Lung volumes are normal. There is no pneumothorax or pleural effusion. Linear bibasilar den sities favor atelectasis or scarring. Moderate enlargement of the cardiac silhouette has increased si nce prior exam. There is no evidence for pulmonary edema. IMPRESSION: 1. Linear bibasilar densities suggestive of atelectasis or scarring. 2. Moderate enlargement of the cardiac silhouette which has increased since prior chest radiograph. N o evidence for pulmonary edema. ACT 112: Negative or not required by law. Electronically signed by: Santi Rocha M.D. 06/01/2024 12:56 PM
[2024-06-01 13:03] LABS: Albumin Globulin Ratio 1.8 (0.9-2); Albumin Level 4.3 gm/dl (3.4-5.0); BUN Creatinine Ratio 24.7 (10-20); Bilirubin,Total 0.9 mg/dl (0.2-1.0); Calcium 9.9 mg/dl (8.6-10.3); Creatinine Clr Calc Pharmacy 72.3 ml/min; Globulin 2.4 gm/dl (2.5-4.0); Potassium 4.2 mmol/L (3.5-5.1); Total Protein 6.7 gm/dl (6.0-8.3)
[2024-06-01 13:08] LABS: Troponin I High Sensitivity 9.1 pg/ml (0-14)
[2024-06-01 13:13] LABS: Partial Thromboplastin Time 28 Seconds (21-31); Prothrombin Time 11.2 Seconds (9.0-12.0)
[2024-06-01 13:30] LABS: Magnesium 1.9 mg/dl (1.7-2.4)
[2024-06-01 13:46] LABS: Thyroid Stimulating Hormone 2.18 uIu/ml (0.300-4.500)
[2024-06-01] MEDS: SODIUM CHLORIDE 0.9% 500 ML IV ONE (14:14)
[2024-06-01] MEDS: OPTIRAY 320 100ml IV ONE (14:25)
--- NOTE | 2024-06-01 14:50 | CT Scan Report ---
EXAM: CT Abdomen and Pelvis With Intravenous Contrast INDICATION: Back and epigastric pain. TECHNIQUE: Axial computed tomography images of the abdomen and pelvis with intravenous contrast. Sagittal and coronal reformatted images were created and reviewed. This CT exam was performed using one or more of the following dose reduction techniques: automated exposure control, adjustment of the mA and/or kV according to patient size, and/or use of iterative reconstruction technique. CONTRAST: 93ml of Optiray 320 was administered intravenously. COMPARISON: No relevant prior studies available. FINDINGS: Limitations: None. Lung bases: Mild atelectasis noted in the lung bases. Pleural space: Trace right basilar pleural effusion. Heart: Mild cardiomegaly and moderate pericardial effusion noted. Mediastinum: No abnormality noted. ABDOMEN: Liver: The liver is heterogeneously hypodense with mild periportal edema. Simple posterior right hepatic cyst. No further assessment of the cyst required. Smooth contour. No ductal dilatation. Gallbladder and bile ducts: The gallbladder is thickened and pericholecystic fluid present. No calcified stones noted. No biliary gas. No ductal dilatation or stone. Pancreas: Homogeneous enhancement. No mass, inflammation or ductal dilation. Spleen: No significant abnormality noted. Adrenals: No significant abnormality noted. Kidneys and ureters: Simple bilateral renal cysts noted. No follow-up necessary. No stones or hydronephrosis. Stomach and bowel: Moderate amounts of formed stool throughout the colon. No obstruction. No inflammatory process noted involving the bowel. PELVIS: Appendix: No findings to suggest acute appendicitis. Bladder: No filling defects to suggest mass or large stone. No inflammation. Reproductive: No abnormalities noted. ABDOMEN and PELVIS: Intraperitoneal space: Trace fluid in the pelvis. No abscess or free air. Bones/joints: 1 cm simple appearing fluid noted adjacent to the right acetabulum series 3 image 267. There is a small right hip joint effusion. Mild degenerative changes in the spine. There is moderate to severe arthritic change of the right hip. Mild arthritic changes left hip. No acute osseous abnormality. Vasculature: No abdominal aortic aneurysm. Lymph nodes: No pathologically enlarged lymph nodes. IMPRESSION: 1. Moderate pericardial effusion. 2. Thickened gallbladder with pericholecystic fluid. Ultrasound recommended. Impression hypodense appearance of the liver with periportal edema. Appearance nonspecific and could reflect hepatitis with or without hepatic steatosis. 3. Trace right pleural effusion. 4. Moderate arthritic change of the right hip with effusion. ACT 112: Negative or not required by law. Electronically signed by Fela Rose 06-01-2024 2:49 PM
[2024-06-01 15:30] LABS: Appearance Urine Clear (Clear); Bacteria Urine Automated None Seen (None Seen); Bilirubin Urine Negative (Negative); Blood Urine Negative (Negative); Cast Urine Automated 0-2 /lpf (0-2); Color Urine Yellow; Epithelial Cell Urine Auto 0-2 /hpf (0-2); Glucose Urine UA Negative (Negative); Ketones Urine Negative (Negative); Leukocyte Esterase Urine Trace (Negative); Nitrite Urine Negative (Negative); Protein Urine Negative (Negative); RBC Urine Automated 0-2 /hpf (0-2); Specific Gravity Urine 1.006 (1.000-1.030); Urobilinogen Urine Negative (Negative); WBC Urine Automated 0-5 /hpf (0-5); pH Urine 6.5 (4.5-7.5)
--- NOTE | 2024-06-01 16:34 | Emergency Department Note ---
Impression & Plan Atrial flutter with rapid ventricular response, Pericardial effusion, Transaminitis ED Provider Note NAME: VERONICA SORENSON AGE: 68 SEX: F : 1955 ARRIVES VIA: Walk-In INFORMANT: Patient ED PROVIDER(S): Jeffrey Hernandez MD CHIEF COMPLAINT: Chest pain, back pain, nausea, atrial fibrillation PLAN: Disposition: Admit MEDICAL DECISION MAKING: The patient is a pleasant 68-year-old woman with a past medical history of hypertension, GERD, atrial fibrillation on Eliquis diagnosed in January 2024 presents to the emergency department via walk-in accompanied by her for evaluation of symptoms of palpitations and fast heart rate, chest pain, back pain and nausea that has been ongoing for the past 2 weeks. She correlates her symptoms as well over the same time to family stress and conflict surrounding the presidential election. Patient reports she contacted her cardiology office and inquired whether she could increase her dose of flecainide which was approved and so the patient did take a double dose of this on Sunday but noticed her symptoms worsening and so did not take her flecainide yesterday and resumed her normal dose today. She denies fevers, cough, diarrhea or urinary symptoms. Patient reports she has sent some increased indigestion and belching. Patient's history of atrial fibrillation dates back to January of this year when she reports she was traveling [place] and was admitted to a hospital there and was started on diltiazem and Eliquis. Since then she has followed up with her local [facility] cardiology office where she reports having a stress echocardiogram performed in February which was negative and was performed to assess ability to be treated with flecainide for better rate control for her atrial fibrillation. In retrospect, the patient recalls that a mild pericardial effusion was seen at the time. On my evaluation patient is fatigued appearing but no acute distress, afebrile with heart rate initially in the 130s-140s in atrial fibrillation in triage with blood pressure 170/130s and otherwise stable respiratory status with O2 saturation 99% on room air. EKG demonstrates atrial fibrillation versus atrial flutter with RVR without overt acute ischemia. Chest x-ray demonstrates suspected atelectasis and note of moderate enlargement of the patient's cardiac silhouette when compared to November 2016. WBC, H/H and platelets within normal limits. There is mild lymphopenia is nonspecific and otherwise no left shift. INR is normal. Chemistry without metabolic acidosis. AST, ALT and alk phos are mildly elevated at 184, 336 and 260, respectively. However total bilirubin is within normal limits. High- sensitivity troponin is normal at 9.1. TSH within limits. UA without convincing evidence of infection. Given patient's transaminitis and lymphopenia tickborne illness testing performed and Lyme screen was negative. Anaplasma and Babesia smear were negative. Anaplasma DNA testing is pending. CT of the abdomen pelvis was performed and demonstrates moderate-sized circumferential pericardial effusion. Gallbladder is noted to be with a thickened wall and with pericholecystic fluid as well as appearance of liver with periportal edema which may suggest hepatitis. Cholecystitis is considered unlikely at this time given normal bilirubin and benign abdominal exam with negative Willis sign. Trace pleural effusion is also seen. Upon reevaluation the patient's heart rate did have some improvement in rate from the 120s-130s to the upper 90s/120s following 500 cc of normal saline. Additional rate control was initially considered with diltiazem however upon further assessment of the patient's pericardial effusion on limited bedside cardiac ultrasound, the patient's circumferential pericardial effusion does appear at least moderate in size which per review of the patient's prior echo report from February of this year does appear to have enlarged. Findings reviewed the patient and her at the bedside and they agree with plan for admission for further management. The patient's case and limited bedside cardiac ultrasound images were reviewed with Dr. Greene, [place] cardiology on-call. Appreciate consultation and recommendations. Given there is no clinical evidence of tamponade at this time, no indication for emergent drainage. However, if the patient's clinical status were to decline then this would be indicated emergently. Given patient does not appear to be particularly symptomatic from her rate in this moment agrees with caution in attempting rate control to avoid precipitation of hemodynamic instability given the size of the patient's pericardial effusion. Avoid beta- blockers as this may blunt catecholamine response/compensation for enlarged pericardial effusion. If rate control were to be required recommends small doses of diltiazem e.g. 2.5mg at a time with close monitoring of blood pressure and clinical status. Consideration of pericardiocentesis tomorrow can be reviewed upon inpatient team consultation. Case was discussed with Dr. Perkins, [facility] hospitalist, who will evaluate the patient for admission. Further management per admitting team. Triage Nursing notes reviewed and agree them. Prior/external medical records reviewed Vital Signs: reviewed Differential diagnosis: Premature contractions, electrolyte abnormality, cardiac dysrhythmia, thyroid dysfunction, pulmonary embolism, infection, gastrointestinal, as well as other pathologies. ER treatment provided: See below. Diagnostics interpreted by me: ECG: Atrial fibrillation versus atrial flutter with variable AV block with RVR, 137 bpm, TWA, no overt ST elevation or depression, QTc 422, QRS 76. Cardiac Monitoring: An order for continuous cardiac monitoring was placed and demonstrated Atrial fibrillation versus atrial flutter with variable AV block with RVR, 137 bpm. Laboratory studies: See below Imaging studies: See below Consultation(s): Dr. Greene, [place] cardiology Dr. Perkins, [facility] hospitalist. HPI: The patient is a pleasant 68-year-old woman with a past medical history of hypertension, GERD, atrial fibrillation on Eliquis diagnosed in January 2024 presents to the emergency department via walk-in accompanied by her for evaluation of symptoms of palpitations and fast heart rate, chest pain, back pain and nausea that has been ongoing for the past 2 weeks. She correlates her symptoms as well over the same time to family stress and conflict surrounding the presidential election. Patient reports she contacted her cardiology office and inquired whether she could increase her dose of flecainide which was approved and so the patient did take a double dose of this on Sunday but noticed her symptoms worsening and so did not take her flecainide yesterday and resumed her normal dose today. She denies fevers, cough, diarrhea or urinary symptoms. Patient reports she has sent some increased indigestion and belching. Patient's history of atrial fibrillation dates back to January of this year when she reports she was traveling [place] and was admitted to a hospital there and was started on diltiazem and Eliquis. Since then she has followed up with her local [facility] cardiology office where she reports having a stress echocardiogram performed in February which was negative and was performed to assess ability to be treated with flecainide for better rate control for her atrial fibrillation. In retrospect, the patient recalls that a mild pericardial effusion was seen at the time. ROS: See above HPI for pertinent positives & negatives. A total of 10 systems reviewed and were otherwise negative. VITALS:See Below PHYSICAL EXAMINATION: GENERAL: Awake, alert, fatigued-appearing, in no distress HENT: Normocephalic, atraumatic. Oropharynx with dry mucous membranes and otherwise unremarkable. EYES: Normal conjunctiva. Sclera non-icteric. NECK: Supple. No nuchal rigidity. FROM. No JVD. RESPIRATORY: Clear to auscultation. CARDIAC: Tachycardic rate, irregular rhythm. Extremities warm and well perfused. Pulses equal. ABDOMEN: Soft, non-distended. No tenderness to palpation. No rebound or guarding. No masses. MUSCULOSKELETAL: Chest examination reveals no tenderness. The back is symmetrical on inspection without obvious abnormality. There is no CVA tenderness to palpation. No joint edema. LOWER EXTREMITIES: Calves are equal size bilaterally and non-tender. No edema. No discoloration. NEURO: Normal sensorium. No sensory or motor deficits noted. SKIN: No rash or jaundice noted. Jeffrey Hernandez MD Past Med/Surg History Problem List Transaminitis Pericardial effusion Atrial flutter with rapid ventricular response (Acute) BPV (benign positional vertigo) (Chronic) HTN (hypertension) (Chronic) Social History Smoking Status: Never smoker Allergies Allergies Allergy/AdvReac Type Severity Reaction Status Date / Time No Known Allergies Allergy Unverified 11/25/16 15:32 Home Meds Home Medications Medication Instructions Recorded Confirmed Vitamin D3 1 gummy PO DAILY 06/01/24 06/01/24 acetaminophen 650 mg 650 mg PO UD 06/01/24 06/01/24 tablet,extended release apixaban 5 mg tablet (Eliquis) 5 mg PO BID 06/01/24 06/01/24 diltiazem HCl 120 mg 120 mg PO BID 06/01/24 06/01/24 capsule,extended release 24 hr flecainide 50 mg tablet 50 mg PO BID 06/01/24 06/01/24 ibandronate 150 mg tablet 150 mg PO MONTHLY 06/01/24 06/01/24 multivitamin 1 tab PO DAILY 06/01/24 06/01/24 omeprazole 20 mg capsule,delayed 20 mg PO UD 06/01/24 06/01/24 release Results & Data (ED) Vital Signs Vital Signs - 24 hr 06/01/24 12:19 06/01/24 12:47 06/01/24 12:47 Temperature 36.7 C Temperature Source Temporal Artery Scan Pulse Rate 140 H Pulse Rate [Apical] 107 H Pulse Rhythm [Apical] Pulse Strength [Apical] Respiratory Rate 20 21 Respiratory Effort / Characteristics Non-Labored Respiratory Depth Normal Respiratory Pattern Blood Pressure 176/131 H Blood Pressure [Right Arm] 140/117 H Blood Pressure Mean 146 Blood Pressure Mean [Right Arm] 124 Blood Pressure Position Sitting Blood Pressure Position [Right Arm] Pulse Oximetry 99 95 95 Oxygen Delivery Method Room Air Room Air Room Air Sepsis Recent Fever Within 48 Hours No Sepsis New/Unexplained Change in Mental Status N/A Sepsis Action Taken by Nursing No Action Required 06/01/24 12:47 06/01/24 12:48 06/01/24 14:53 Temperature Temperature Source Pulse Rate 127 H Pulse Rate [Apical] 84 Pulse Rhythm [Apical] Pulse Strength [Apical] Respiratory Rate 20 Respiratory Effort / Characteristics Non-Labored Respiratory Depth Normal Respiratory Pattern Blood Pressure Blood Pressure [Right Arm] 148/119 H Blood Pressure Mean Blood Pressure Mean [Right Arm] 128 Blood Pressure Position Blood Pressure Position [Right Arm] Pulse Oximetry 95 93 Oxygen Delivery Method Room Air Room Air Sepsis Recent Fever Within 48 Hours Sepsis New/Unexplained Change in Mental Status Sepsis Action Taken by Nursing 06/01/24 16:01 06/01/24 16:49 Temperature Temperature Source Pulse Rate 119 H Pulse Rate [Apical] 120 H Pulse Rhythm [Apical] Irregular Pulse Strength [Apical] Normal Respiratory Rate 16 Respiratory Effort / Characteristics Non-Labored Respiratory Depth Normal Respiratory Pattern Regular Blood Pressure Blood Pressure [Right Arm] 163/112 H Blood Pressure Mean Blood Pressure Mean [Right Arm] 129 Blood Pressure Position Blood Pressure Position [Right Arm] Sitting Pulse Oximetry 97 Oxygen Delivery Method Room Air Sepsis Recent Fever Within 48 Hours Sepsis New/Unexplained Change in Mental Status Sepsis Action Taken by Nursing Laboratory Data Attestation: I reviewed the patient's lab results. 06/01/24 12:34 06/01/24 12:34 Lab Results 06/01/24 06/01/24 Range/Units 12:34 15:08 WBC 6.66 (4.8-10.8) K/ul RBC 4.56 (4.20-5.40) M/uL Hgb 13.6 (12.0-16.0) g/dl Hct 41.3 (37.0-47.0) % MCV 90.6 (80.0-100.0) fL MCH 29.8 (25.0-34.0) pg MCHC 32.9 (32.0-36.0) g/dL RDW Std Deviation 42.8 (36.4-46.3) fL RDW Coeff of Pepe 13.0 (11.5-14.5) % Plt Count 398 (130-400) K/uL MPV 8.9 L (9.4-12.4) fL Immature Gran % (Auto) 0.3 % Neut % (Auto) 73.8 % Lymph % (Auto) 12.0 % Robertson % (Auto) 12.2 % Eos % (Auto) 1.1 % Baso % (Auto) 0.6 % Neut # (Auto) 4.92 (1.40-6.50) K/uL Lymph # (Auto) 0.80 L (1.20-3.40) K/uL Robertson # (Auto) 0.81 H (0.11-0.59) K/uL Eos # (Auto) 0.07 (0.00-0.50) K/uL Baso # (Auto) 0.04 (0.00-0.20) K/uL Immature Gran # (Auto) 0.02 (0.01-0.20) K/uL PT 11.2 (9.0-12.0) Seconds INR 1.0 (0.9-1.1) APTT 28 (21-31) Seconds PTT Ratio 1.0 Sodium 134 L (136-145) mmol/L Potassium 4.2 (3.5-5.1) mmol/L Chloride 102 (98-107) mmol/L Carbon Dioxide 25 (21-32) mmol/L Anion Gap 7 (3-11) BUN 18 (6-23) mg/dl Creatinine 0.73 (0.6-1.2) mg/dl Est Cr Clr Drug Dosing 72.3 ml/min eGFR 88.42 BUN/Creatinine Ratio 24.7 H (10-20) Glucose 109 H (70-99(Fasting)) mg/dl Calcium 9.9 (8.6-10.3) mg/dl Phosphorus 3.0 (2.5-4.9) mg/dl Magnesium 1.9 (1.7-2.4) mg/dl Total Bilirubin 0.9 (0.2-1.0) mg/dl AST 184 H (13-39) U/L ALT 336 H (7-52) U/L Alkaline Phosphatase 260 H (34-104) U/L Troponin I High Sens 9.1 (0-14) pg/ml Total Protein 6.7 (6.0-8.3) gm/dl Albumin 4.3 (3.4-5.0) gm/dl Globulin 2.4 L (2.5-4.0) gm/dl Albumin/Globulin Ratio 1.8 (0.9-2) TSH 2.180 (0.300-4.500) uIu/ml Urine Color Yellow Urine Appearance Clear (Clear) Urine pH 6.5 (4.5-7.5) Ur Specific [place] 1.006 (1.000-1.030) Urine Protein Negative (Negative) Urine Glucose (UA) Negative (Negative) Urine Ketones Negative (Negative) Urine Blood Negative (Negative) Urine Nitrite Negative (Negative) Urine Bilirubin Negative (Negative) Urine Urobilinogen Negative (Negative) Ur Leukocyte Esterase Trace H (Negative) Urine WBC (Auto) 0-5 (0-5) /hpf Urine RBC (Auto) 0-2 (0-2) /hpf U Hyaline Cast (Auto) 0-2 (0-2) /lpf U Epithel Cells (Auto) 0-2 (0-2) /hpf Urine Bacteria (Auto) None Seen (None Seen) Anaplasma Smear See Comment Babesia Smear See Comment Lyme Disease Screen Negative (Negative) Administered Medications Morphine Sulfate (Morphine Sulfate 2 Mg/Ml Carp) 1 mg IV Q4H PRN PRN Reason: Pain Stop: 06/15/24 17:59 Last Admin: 06/01/24 18:58 Dose: 1 mg Documented By: YENNY Discontinued Medications Diltiazem HCl (Diltiazem Hcl 5 Mg/Ml 5 Ml Vial) 15 mg IV NOW STA Stop: 06/01/24 15:26 Last Admin: 06/01/24 17:14 Dose: Not Given Documented By: YENNY Sodium Chloride (Nss) 500 mls @ 999 mls/hr IV .Q31M ONE Stop: 06/01/24 14:24 Last Infusion: 06/01/24 15:18 Dose: Infused Documented By: Admin: 06/01/24 14:14 Dose: 999 mls/hr Documented By: YENNY Ioversol (Optiray 320 100ml) 93 ml IV ONCE ONE Stop: 06/01/24 14:26 Last Admin: 06/01/24 14:25 Dose: 93 ml Documented By: NANCYK Ondansetron HCl (Ondansetron Inj 2 Mg/Ml 2 Ml Vial) 4 mg IV NOW STA Stop: 06/01/24 18:48 Last Admin: 06/01/24 18:56 Dose: 4 mg Documented By: YENNY Imaging Data Radiologist's Impression: Chest X-Ray 06/01/24 12:22 XR chest 1V not portable CLINICAL HISTORY: Chest pain, nonspecific COMPARISON STUDY: Chest radiograph November 25, 2016. FINDINGS: Lung volumes are normal. There is no pneumothorax or pleural effusion. Linear bibasilar densities favor atelectasis or scarring. Moderate enlargement of the cardiac silhouette has increased since prior exam. There is no evidence for pulmonary edema. IMPRESSION: 1. Linear bibasilar densities suggestive of atelectasis or scarring. 2. Moderate enlargement of the cardiac silhouette which has increased since prior chest radiograph. No evidence for pulmonary edema. ACT 112: Negative or not required by law. Electronically signed by: Santi Rocha M.D. 06/01/2024 12:56 PM Abdomen/Pelvis CT 06/01/24 13:58 EXAM: CT Abdomen and Pelvis With Intravenous Contrast INDICATION: Back and epigastric pain. TECHNIQUE: Axial computed tomography images of the abdomen and pelvis with intravenous contrast. Sagittal and coronal reformatted images were created and reviewed. This CT exam was performed using one or more of the following dose reduction techniques: automated exposure control, adjustment of the mA and/or kV according to patient size, and/or use of iterative reconstruction technique. CONTRAST: 93ml of Optiray 320 was administered intravenously. COMPARISON: No relevant prior studies available. FINDINGS: Limitations: None. Lung bases: Mild atelectasis noted in the lung bases. Pleural space: Trace right basilar pleural effusion. Heart: Mild cardiomegaly and moderate pericardial effusion noted. Mediastinum: No abnormality noted. ABDOMEN: Liver: The liver is heterogeneously hypodense with mild periportal edema. Simple posterior right hepatic cyst. No further assessment of the cyst required. Smooth contour. No ductal dilatation. Gallbladder and bile ducts: The gallbladder is thickened and pericholecystic fluid present. No calcified stones noted. No biliary gas. No ductal dilatation or stone. Pancreas: Homogeneous enhancement. No mass, inflammation or ductal dilation. Spleen: No significant abnormality noted. Adrenals: No significant abnormality noted. Kidneys and ureters: Simple bilateral renal cysts noted. No follow-up necessary. No stones or hydronephrosis. Stomach and bowel: Moderate amounts of formed stool throughout the colon. No obstruction. No inflammatory process noted involving the bowel. PELVIS: Appendix: No findings to suggest acute appendicitis. Bladder: No filling defects to suggest mass or large stone. No inflammation. Reproductive: No abnormalities noted. ABDOMEN and PELVIS: Intraperitoneal space: Trace fluid in the pelvis. No abscess or free air. Bones/joints: 1 cm simple appearing fluid noted adjacent to the right acetabulum series 3 image 267. There is a small right hip joint effusion. Mild degenerative changes in the spine. There is moderate to severe arthritic change of the right hip. Mild arthritic changes left hip. No acute osseous abnormality. Vasculature: No abdominal aortic aneurysm. Lymph nodes: No pathologically enlarged lymph nodes. IMPRESSION: 1. Moderate pericardial effusion. 2. Thickened gallbladder with pericholecystic fluid. Ultrasound recommended. Impression hypodense appearance of the liver with periportal edema. Appearance nonspecific and could reflect hepatitis with or without hepatic steatosis. 3. Trace right pleural effusion. 4. Moderate arthritic change of the right hip with effusion. ACT 112: Negative or not required by law. Electronically signed by Fela Rose 06-01-2024 2:49 PM Discharge Plan Visit Data Chief Complaint: Cardiac Assessment Stated Complaint: NAUSEA, CHEST PAIN, BACK PAIN, AFIB ED Provider: Jeffrey Hernandez Discharge Problem: Atrial flutter with rapid ventricular response, Pericardial effusion, Transaminitis Patient Disposition: Admitted As Inpatient Discharge Instructions Interventions: ED Discharge Assessment Last Done: 06/01/24 18:53
--- NOTE | 2024-06-01 16:53 | History & Physical Report ---
Date of Service June 01, 2024 Assessment & Plan (1) Pericardial effusion: Plan: Moderatelarge pericardial effusion Moderate pericardial effusion on [id number] ultrasound. No hypotension. +JVD. Formal echo pending - Discussed with on-call health social work professor. She is not hypotensive and does not have an indication for an emergent pericardiocentesis. Monitor overnight, recommend conservative rate control and allowing some permissive tachycardia overnight. Can try small boluses of Cardizem if needed for acute rate control, would use small boluses for this and avoid any beta-blockers due to risk of decompensation. Agree with holding Eliquis, no need for bridge heparin therapy overnight. Will have her [facility] cardiology team consulted in the morning, anticipate pericardiocentesis will be needed 06/02, keep patient n.p.o. at midnight Lyme testing negative. Anaplasma/Babesia send out pending, smear is negative. Does have a new paracardial effusion in association with transaminitis. Thrombocytopenia is not present BUN 18 TSH is normal If patient becomes hypotensive overnight --> heart alert for stat pericardiocentesis. (2) Atrial flutter with rapid ventricular response: Plan: A-fib RVR Patient is anticoagulated with Eliquis for A-fib. This is held pending pericardiocentesis evaluation Worsened with moderate to large pericardial effusion on admission Troponin is normal Discussed with cardiology. +Conservative doses of diltiazem if needed overnight. Recommend permissive parameters to allow for slightly higher than usual heart rates overnight. Do not use beta-blockers for rate control at this time. Appreciate recs. (3) Transaminitis: Plan: Abnormal gallbladder, periportal liver edema Thickened gallbladder with pericholecystic fluid. Ultrasound pending. Additionally with hyperdense material of the liver suggestive periportal edema nonspecific but could be suggestive of hepatitis. Patient does have elevated LFTs. Hepatitis panel pending. DDx includes biliary disease, hepatitis with hepatitis A rarely being associated with pericardial effusions, and hepatic congestion. Liver ultrasound pending CMP trended She has no right upper quadrant pain and no clinical symptoms of biliary/hepatic disease on exam Plan DVT prophylaxis: Patient is anticoagulated, Eliquis is held pending pericardiocentesis Diet: N.p.o. midnight Disposition: Clears, n.p.o. at midnight CODE STATUS: Full code History of Present Illness Primary Care Provider: MD Sheyla Killian is a 68-year-old female with a past medical history of BPPV, LVH/grade 2 diastolic dysfunction, hypertension, A-fib RVR on apixaban who presented to the ER with 2 weeks of increasing heart rate in the setting of stress with some chest discomfort over the last 2 days. She does have history of A-fib on Eliquis. Sheyla is seen at the bedside. She reports for the last few days she has had worsened palpitations and chest discomfort which have worsened greatly in the last 2 days around taking additional flecainide. Feels overall tired and very washed out. She was recently diagnosed with A-fib a few months ago but had been generally doing well on diltiazem and flecainide up until the last 2 weeks. She has some discomfort and fluttering in her chest which goes into her back but no lightheadedness dizziness shortness of breath or diaphoresis. She does not feel like she is going to pass out. Was in [place] in January, was started on dilt/eliquis for new onset afib that time. Sees Kathe Ramirez with [facility]. Stress echo Feb 2024 with no ischemic findings, but did show small circumferential effusion at that time Now on 50mg BID of flecanide, but continued to feel worse. Returned to her lower dose but still felt poor and still had pressure like epigastric discomfort, mid pain discomfort, and palpitations Has not been sick recently although has been under stress. She denies any fever chills or night sweats. She has not had weight loss. She has not noticed any yellowing of her skin or jaundice. She does not have any pain with meals she does not have any right upper quadrant pain. Her bowel movements are regular and brown she has not had any white or manuel colored bowel movements although notes that her family member experienced white stools right for she was diagnosed with renal cancer. Discussed that did not suspect she had renal cancer, with screening for symptoms of gallbladder obstruction. Patient has not had any melena or hematochezia. Records from [facility] requested Medical History: Reviewed Medications: Reviewed Surgical History: Reviewed Family history: Reviewed Allergies: Reviewed Social History: No tobacco or alcohol use Code Status: Full code Allergies Allergy/AdvReac Type Severity Reaction Status Date / Time No Known Allergies Allergy Unverified 11/25/16 15:32 Home Medications Medication Instructions Recorded Confirmed Type Vitamin D3 1 gummy PO DAILY 06/01/24 06/01/24 History acetaminophen 650 mg 650 mg PO UD 06/01/24 06/01/24 History tablet,extended release apixaban 5 mg tablet (Eliquis) 5 mg PO BID 06/01/24 06/01/24 History diltiazem HCl 120 mg 120 mg PO BID 06/01/24 06/01/24 History capsule,extended release 24 hr flecainide 50 mg tablet 50 mg PO BID 06/01/24 06/01/24 History ibandronate 150 mg tablet 150 mg PO MONTHLY 06/01/24 06/01/24 History multivitamin 1 tab PO DAILY 06/01/24 06/01/24 History omeprazole 20 mg capsule,delayed 20 mg PO UD 06/01/24 06/01/24 History release Past Med/Surg History Problem List Transaminitis Pericardial effusion Atrial flutter with rapid ventricular response (Acute) BPV (benign positional vertigo) (Chronic) HTN (hypertension) (Chronic) Social History Smoking Status: Never smoker Physical Exam Physical Exam: General: A&Ox3. NAD. Cooperative. HEENT: Atraumatic, normocephalic. PERLAA. Vision/hearing intact Pulm: CTAB A&P. -wheezes, -rales, -rhonchi. Symmetrical chest rise. No increased work of breathing. No respiratory distress. Cardiac: tachycardic, irir. Radial pulses intact and symmetrical. JVD ~long-term between clavicle and angle of the mandible at 30 degrees. Abdominal: Nontender, nondistended, soft. BS present Extremities: Warm and dry. Moves all extremities equally. Results & Data Results & Data Vital Signs (Past 12 Hours) Vital Signs Temp Pulse Pulse Resp BP BP Pulse Ox 06/01/24 16:01 120 H 16 163/112 H 97 06/01/24 14:53 84 20 148/119 H 93 06/01/24 12:48 127 H 06/01/24 12:47 95 06/01/24 12:47 107 H 21 140/117 H 95 06/01/24 12:47 95 06/01/24 12:19 36.7 C 140 H 20 176/131 H 99 O2 Del Method 06/01/24 16:01 Room Air 06/01/24 14:53 Room Air 06/01/24 12:48 06/01/24 12:47 Room Air 06/01/24 12:47 Room Air 06/01/24 12:47 Room Air 06/01/24 12:19 Room Air PG Care Time/CCT Total # of Minutes Spent Total Time Spent with Patient: Total time spent is greater than 50% in coordination of care (as documented) at patient's floor/unit and/or counseling patient: Coding Level of Care Code 53005 INT INP/OBS CARE 3/75MIN Diagnoses Pericardial effusion I31.39 Atrial flutter with rapid ventricular response I48.92 Transaminitis R74.01
[2024-06-01] MEDS: dilTIAZem HCl 5 MG/ML 5 ML VIAL IV STA (17:14)
[2024-06-01] MEDS ORDERED: dilTIAZem HCl 5 MG/ML 5 ML VIAL IV PRN (18:23)
[2024-06-01] MEDS: ONDANSETRON INJ 2 MG/ML 2 ML VIAL IV STA (18:56)
[2024-06-01] MEDS: MoRPHine SULFATE 2 MG/ML CARP IV PRN (18:58)
[2024-06-01] MEDS: dilTIAZem HCL 120 MG CAPCR PO SCH (21:18)
--- NOTE | 2024-06-01 23:12 | Ultrasound Report ---
Exam(s): US LIVER EXAM: US Abdomen Limited CLINICAL HISTORY: Reason for exam: gallbladder thickening, acute transaminitis. TECHNIQUE: Real-time ultrasound of the abdomen with image documentation. COMPARISON: CT scan from June 01, 2024 FINDINGS: Liver: There is a 1 cm simple cyst of the liver. No follow-up is required. The liver measures 16.6 cm. No focal mass lesion. Gallbladder: The gallbladder is fully distended but nondilated. No gallstones are visible. There is gallbladder wall thickening measuring 4 mm with trace amount of pericholecystic fluid. Common bile duct: The common bile duct is nondilated measuring 4 mm. Pancreas: The visualized portion of the pancreas is unremarkable. Kidneys: The right kidney measures 9.2 cm. No hydronephrosis. There is a trace amount of fluid between the liver and kidney. Inferior vena cava: The IVC is unremarkable. Pleural space: There is a small right pleural effusion. IMPRESSION: The gallbladder is fully distended but nondilated. No gallstones are visible. There is gallbladder wall thickening measuring 4 mm with trace amount of pericholecystic fluid. Consider passive congestion from CHF versus acalculous cholecystitis. Electronically signed by: Nicolas Menjivar MD 06/01/24 23:12 PM
[2024-06-02 05:52] LABS: Basophils # (auto) 0.03 K/uL (0.00-0.20); Basophils % (auto) 0.5 %; Eosinophils % (auto) 1.7 %; Hematocrit (blood only) 35.1 % (37.0-47.0); Hemoglobin 11.5 g/dl (12.0-16.0); Immature Granulocytes # (auto) 0.01 K/uL (0.01-0.20); Immature Granulocytes % (auto) 0.2 %; Lymphocytes % (auto) 15.3 %; Mean Corpuscular Hemoglobin 29.6 pg (25.0-34.0); Mean Corpuscular Hgb Conc 32.8 g/dL (32.0-36.0); Mean Corpuscular Volume 90.5 fL (80.0-100.0); Mean Platelet Volume 9.1 fL (9.4-12.4); Monocytes % (auto) 11.9 %; Neutrophils # (auto) 4.15 K/uL (1.40-6.50); Neutrophils % (auto) 70.4 %; Platelet Count 338 K/uL (130-400); RDW Coefficient of Variation 13.2 % (11.5-14.5); RDW Standard Deviation 43.6 fL (36.4-46.3); Red Blood Count 3.88 M/uL (4.20-5.40); White Blood Count 5.89 K/ul (4.8-10.8)
[2024-06-02 06:02] LABS: Albumin Globulin Ratio 1.8 (0.9-2); Albumin Level 3.5 gm/dl (3.4-5.0); BUN Creatinine Ratio 21.3 (10-20); Bilirubin,Total 0.7 mg/dl (0.2-1.0); Creatinine Clr Calc Pharmacy 89.7 ml/min; Potassium 4.3 mmol/L (3.5-5.1); Total Protein 5.5 gm/dl (6.0-8.3)
--- NOTE | 2024-06-02 07:55 | Hospitalist Progress Note ---
Date of Service June 02, 2024 Assessment & Plan (1) Pericardial effusion: Plan: Moderatelarge new pericardial effusion a/w Transaminitis -Echocardiogram shows moderate to large circumdental pericardial effusion. Fibrinous material is noted with fluid adherent to surface of RV wall, this could represent a clot. -No hypotension. +JVD. -[facility] cardiology team consulted this morning: Will review the formal ECHO, Plan for pericardiocentesis on 06/03/2024, keep patient n.p.o. after midnight. -Cardizem if needed for acute rate control, avoid any beta-blockers due to risk of decompensation. -Not taking Eliquis, no need for bridge heparin therapy overnight. -No beta blockers. Labs Lyme testing negative/ Anaplasma/Babesia negative, smear is negative. BUN 13/TSH is normal/ CRP is elevated 3.23 mg/dl - BNP negative, Troponin Negative If patient becomes hypotensive --> heart alert for stat pericardiocentesis. (2) Atrial flutter with rapid ventricular response: Plan: A-fib RVR 4 hours of Afib from 2:30am-6:30am, cardioverted at 6am. Sinus in 80s - Patient is anticoagulated with Eliquis for A-fib. This is held pending pericardiocentesis evaluation Worsened with moderate to large pericardial effusion on admission Troponin is normal, BNP Normal Discussed with cardiology. +Conservative doses of diltiazem if needed. Do not use beta-blockers for rate control at this time. Appreciate recs. - Plan is to not continue flecainide and switch to a new medication for AFIB to be managed by outpatient cardiology. (3) Transaminitis: Plan: Periportal liver edema likely secondary to liver congestion Distended GB ? d/t non calculus cholecystitis. DDx includes biliary disease, hepatitis with hepatitis A rarely being associated with pericardial effusions, and hepatic congestion. Abdominal/Pelvis CT: Thickened gallbladder with pericholecystic fluid. Additionally with hyperdense material of the liver suggestive periportal edema nonspecific but could be suggestive of hepatitis. Liver ultrasound: The gallbladder is fully distended but nondilated, no gallstones are visible. There is gallbladder wall thickening measuring 4 mm with trace amount of pericholecystic fluid. - LFTs downtrending - Recommend daily AM LFT Hepatitis panel pending: Hep B Antigen/ Hep C Antibody Negative Hep B Antigen Pending Hep A IGM Ab Pending Plan DVT prophylaxis: Patient is anticoagulated, Eliquis is held pending pericardiocentesis Diet: N.p.o. midnight Disposition: [place], n.p.o. CODE STATUS: Full code Plan for pericardiocentesis on 06/03/2024 Admission and Anticipated Discharge Date Admission Date: June 01, 2024 Supervising Physician Co-Signing Physician Notes Attending Physician Supervision Note: I independently interviewed and examined the patient and verified the harper history and physical, reviewed labs and image studies and agree with findings and care plan noted above. chest pain improved with morphine. no new concerns. answered all questions. and son at bedside. vitals noted nad heent nc at mmm breathing unlabored no accessory muscles good effort skin no rashes no pallor or icterus neuro no focal deficits. moderate to severe pericardial effusion - no tamponade. concern of bloody effusion. for tap in am. holding anticoagulation. elevated LFT - unclear etiology. possibly passive congestion/viral illness - work up as above. improving counts. a fib rvr - cardio considering switching antiarrhythmic agent. patient doesn't want to go back on flecainide - increased flecainide dose coincided with worsening symptoms. -continue diltiazem. Subjective Sheyla is a 68-year-old female with a past medical history of BPPV, LVH/grade 2 diastolic dysfunction, hypertension, A-fib RVR on apixaban who presented to the ER with 2 weeks of increasing heart rate in the setting of stress with some chest discomfort over the last 2 days. She has a history of A-fib on Eliquis. Sheyla is seen at the bedside. She reports for the last few days she has had worsened palpitations, dizziness, and chest discomfort which have worsened greatly in the last 2 days after her flecainide dose was increased. She was recently diagnosed with A-fib in January. A-fib mostly occurs at night. A few weeks ago, she noticed was worsening AFIB symptoms, Dr. He upped her dosage from 50-100 mg flecainide 2x a day on . On Sunday she noticed, feeling fatigued, run down, dizziness, and back pain. Returned to her lower dose but still felt poor and still had pressure like epigastric discomfort, mid pain discomfort, and palpitations.Sunday the back pain worsened and she noticed some pain in her chest and some 'pressure' in her abdomen. She has some discomfort and fluttering in her chest, which what brought her into the ED. May have been slightly sick or 'feverish' and some chills the past few days after upping her fleccanide, but no chronic chills, fever, or weight changes History of A Fib: Was in [place] in January, was started on dilt/eliquis for new onset afib that time. Sees Kathe Ramirez with [facility]. Stress echo Feb 2024 with no ischemic findings, but did show small circumferential effusion at that time Hiatal Hernia diagnosed in November via EGD, and was taking omeprazole, which helps. Her bowel movements are regular and brown she has not had any white or manuel colored bowel movements although notes that her family member experienced white stools right for she was diagnosed with renal cancer. Discussed that did not suspect she had renal cancer, with screening for syNow on 50mg BID of flecanide, but continued to feel worse. Today: Overnight, AFib from 2:30am-6:30am, self cardioverted. Sinus in s She received 4mg IV Q4H overnight which helped relieve some of her back pain. She still has some chest pain and some discomfort in her abdomen. Some palpitations consistent with AFib. She noted that she did not sleep well last night. She is laying comfortably on her back and does not have any notable SOB Review of Systems Review of Systems: No fevers, chills, night sweats, changes in appetite or weight changes No headaches or changes in vision No SOB, cough, wheezing, no dysphagia No nausea, vommitting, diarrhea, hematochezia, melena No changes in urinary habits or changes in urine color No body aches or pains No swelling in abdomen or extremities. Physical Exam Constitutional: WD/WN, vitals as above Eyes: PERRL, conjunctivae normal, anicteric sclerae + anicteric sclerae Respiratory: normal respiratory effort, lungs clear to auscultation carotid pulses are bilateral and equal, no carotid bruits Cardiovascular: RRR, no murmur, no edema Vessels: + JVD, normal peripheral pulses (capillary refill <3 seconds in all 4 distal extremities. ), dorsalis pedis pulses present, + renal bruit and radial pulses present Extremities: normal capillary refill Gastrointestinal (Abdomen): Inspection/Auscultation: abdomen normal to inspection and normal bowel sounds Percussion/Palpation: normal to percussion slight tenderness to palpation over RUQ, Negative Willis's sign, Negative McBurney's Point Skin: no rashes, warm and dry Psychiatric: A+Ox3, euthymic affect Results & Data Results & Data Vital Signs (Past 12 Hours) Vital Signs Temp Pulse Pulse Resp BP Pulse Ox O2 Del Method 06/02/24 07:12 97 H 06/02/24 03:42 36.6 C 106 H 18 109/78 92 Room Air 06/01/24 23:59 36.6 C 83 18 128/85 96 Room Air 06/01/24 23:58 87 06/01/24 21:17 99 H 134/87
--- NOTE | 2024-06-02 08:58 | Cardiology Consultation ---
Date of Consultation June 02, 2024 Assessment & Plan (1) Pericardial effusion: (2) Atrial flutter with rapid ventricular response: (3) Transaminitis: Plan Impression: 1. AFib RVR 2. Moderate to large pericardial effusion Ms. Phan looks pretty comfortable in bed now that she is in sinus rhythm, but she does have JVD and mild tachycardia. Once her echo taken this morning is read and we can see how big her effusion measures and if it's creating tamponade, we can decide on the necessity of pericardiocentesis. Her Eliquis has been held and she is npo which she should continue until we see the echo and decide on further intervention. Sed rate, crp, REX with reflex titers, RF, and bnp ordered. She does not want to resume the higher dose of flecainide. I would leave her on AV marycarmen blockers and control rate if she were to flip back into a fib. We can consider Multaq as an alternative but she'll need a few days off of the flecainide before starting. She may also want to reconsider ablation which she had discussed with Dr. He but this can be discussed further outpatient. History of Present Illness Attending Physician: Anya Ocasio MD History of Present Illness Ms. Phan presented to the ED yesterday for symptoms of afib including dyspnea and palpitations. She had been working with Dr. He from [facility] on antiarrhythmic therapy for her new afib starting this summer. She had been having more frequent episodes of afib in the last few weeks. Dr. He increased her flecainide dosing but after the evening dose and Sunday morning Ms. Phan felt terrible with nausea and some chills so discontinued the higher dose. She felt that she was in afib over the weekend which caused pain between her shoulder blades and presented to the ED. She is in a sinus rhythm this morning and feels well. She is laying flat with not difficulty as we are talking. She denies dyspnea when not in afib. No abdominal distention or lower extremity edema. The ECHO was reviewed-please see complete report. She has typical pericardial symptoms which are moderate to severe, position and they increase with deep breath. ECHO shows moderate-large pericardial effusion. Will HOLD AC for now, use narcotics for pain relief until we see what the fluid is comprised of. Keep NPO in am-I spoke with Dr. Voss who will do the pericardiocentesis with ECHO/US. I also reviewed with Dr. He so she is aware. Allergies Allergy/AdvReac Type Severity Reaction Status Date / Time No Known Allergies Allergy Unverified 11/25/16 15:32 Home Medications Medication Instructions Recorded Confirmed Type Vitamin D3 1 gummy PO DAILY 06/01/24 06/01/24 History acetaminophen 650 mg 650 mg PO UD 06/01/24 06/01/24 History tablet,extended release apixaban 5 mg tablet (Eliquis) 5 mg PO BID 06/01/24 06/01/24 History diltiazem HCl 120 mg 120 mg PO BID 06/01/24 06/01/24 History capsule,extended release 24 hr flecainide 50 mg tablet 50 mg PO BID 06/01/24 06/01/24 History ibandronate 150 mg tablet 150 mg PO MONTHLY 06/01/24 06/01/24 History multivitamin 1 tab PO DAILY 06/01/24 06/01/24 History omeprazole 20 mg capsule,delayed 20 mg PO UD 06/01/24 06/01/24 History release Patient History Social History Smoking Status: Never smoker Second Hand Exposure: No; Do You Dip or Chew Tobacco: No; Tobacco Cessation Education Requested by Patient: No Hx Alcohol Use: No Hx Substance Use: No Preferred Language: Czech Communication Ability: Effective [place] Required: No Beliefs That Will Affect Care: None Current Living Situation: Spouse Current Living Situation Comment: lives at home with Other Information That Helps Us Care for You: No Feels Safe at Home: Yes Safety Concerns: Feels Safe At This Time Assistive Devices: Contacts and Glasses Review of Systems Review of Systems: All systems reviewed & are unremarkable except as noted in HPI & below Physical Exam Constitutional: WD/WN, vitals as above Respiratory: normal respiratory effort, lungs clear to auscultation Cardiovascular: RRR, no murmur, no edema Vessels: + JVD possible rub Skin: no rashes, warm and dry Neurologic: moves all extremities and awake Psychiatric: A+Ox3, euthymic affect Results & Data Vital Signs (Past 12 Hours) Vital Signs Temp Pulse Pulse Resp BP Pulse Ox O2 Del Method 06/02/24 07:12 97 H 06/02/24 03:42 36.6 C 106 H 18 109/78 92 Room Air 06/01/24 23:59 36.6 C 83 18 128/85 96 Room Air 06/01/24 23:58 87 06/01/24 21:17 99 H 134/87 Laboratory Results Abnormal lab results 06/01/24 06/02/24 06/02/24 Range/Units 15:08 05:28 09:20 RBC 3.88 L (4.20-5.40) M/uL Hgb 11.5 L (12.0-16.0) g/dl Hct 35.1 L (37.0-47.0) % MPV 9.1 L (9.4-12.4) fL Lymph # (Auto) 0.90 L (1.20-3.40) K/uL [place] # (Auto) 0.70 H (0.11-0.59) K/uL Chloride 108 H (98-107) mmol/L BUN/Creatinine Ratio 21.3 H (10-20) Glucose 114 H (70-99(Fasting)) mg/dl AST 74 H (13-39) U/L ALT 219 H (7-52) U/L Alkaline Phosphatase 182 H (34-104) U/L C-Reactive Protein 3.29 H (0-0.5) mg/dl Total Protein 5.5 L (6.0-8.3) gm/dl Globulin 2.0 L (2.5-4.0) gm/dl Ur Leukocyte Esterase Trace H (Negative)
[2024-06-02] MEDS: PANTOprazole 40 MG TAB PO SCH (09:12)
[2024-06-02 09:48] LABS: Hep B Surface Ag with confirm Negative (Negative)
[2024-06-02 09:54] LABS: Hep C Ab Rflx HepCQuant RNA Negative (Negative)
[2024-06-02] MEDS: ONDANSETRON INJ 2 MG/ML 2 ML VIAL IV PRN (19:46)
[2024-06-03 06:23] LABS: Albumin Globulin Ratio 1.9 (0.9-2); Albumin Level 3.7 gm/dl (3.4-5.0); BUN Creatinine Ratio 20.5 (10-20); Bilirubin,Total 0.6 mg/dl (0.2-1.0); Calcium 9.2 mg/dl (8.6-10.3); Creatinine Clr Calc Pharmacy 70.1 ml/min; Globulin 1.9 gm/dl (2.5-4.0); Potassium 4.2 mmol/L (3.5-5.1); Total Protein 5.6 gm/dl (6.0-8.3)
[2024-06-03 06:30] LABS: Basophils # (auto) 0.04 K/uL (0.00-0.20); Basophils % (auto) 0.6 %; Eosinophils # (auto) 0.15 K/uL (0.00-0.50); Eosinophils % (auto) 2.4 %; Hematocrit (blood only) 35.8 % (37.0-47.0); Hemoglobin 11.5 g/dl (12.0-16.0); Immature Granulocytes # (auto) 0.02 K/uL (0.01-0.20); Immature Granulocytes % (auto) 0.3 %; Lymphocytes # (auto) 0.93 K/uL (1.20-3.40); Mean Corpuscular Hemoglobin 29.2 pg (25.0-34.0); Mean Corpuscular Hgb Conc 32.1 g/dL (32.0-36.0); Mean Corpuscular Volume 90.9 fL (80.0-100.0); Mean Platelet Volume 9.1 fL (9.4-12.4); Monocytes # (auto) 0.75 K/uL (0.11-0.59); Monocytes % (auto) 12.1 %; Neutrophils # (auto) 4.32 K/uL (1.40-6.50); Neutrophils % (auto) 69.6 %; Platelet Count 371 K/uL (130-400); RDW Coefficient of Variation 13.1 % (11.5-14.5); RDW Standard Deviation 44.1 fL (36.4-46.3); Red Blood Count 3.94 M/uL (4.20-5.40); White Blood Count 6.21 K/ul (4.8-10.8)
--- NOTE | 2024-06-03 06:49 | Hospitalist Progress Note ---
Date of Service June 03, 2024 Assessment & Plan (1) Pericardial effusion: Plan: Moderatelarge new pericardial effusion a/w Transaminitis D/D: Viral infection/ Idiopathic/ Hemorrhagic -Echocardiogram shows moderate to large circumdental pericardial effusion. Fibrinous material is noted with fluid adherent to surface of RV wall, this could represent a clot. -No hypotension. +JVD. -Plan for pericardiocentesis today -Cardizem if needed for acute rate control, avoid any beta-blockers due to risk of decompensation. -Not taking Eliquis, no need for bridge heparin therapy overnight. -No beta blockers. Labs Lyme testing negative/ Anaplasma/Babesia negative, smear is negative. BUN 13/TSH is normal/ CRP is elevated 3.23 mg/dl - BNP negative, Troponin Negative If patient becomes hypotensive --> heart alert for stat pericardiocentesis. (2) Atrial flutter with rapid ventricular response: Plan: A-fib RVR Afib with RVR on presentation. - Rate, Rhythm controlled now - BP: 110/80 Cardio rec appreciated -Cardizem if needed for acute rate control, avoid any beta-blockers due to risk of decompensation. - Not taking Eliquis, no need for bridge heparin therapy overnight. - No beta blockers - Patient is anticoagulated with Eliquis for A-fib. This is held pending pericardiocentesis evaluation Troponin is normal, BNP Normal (3) Transaminitis: Plan: Periportal liver edema likely secondary to liver congestion Distended GB ? d/t non calculus cholecystitis. DDx includes biliary disease, hepatitis with hepatitis A rarely being associated with pericardial effusions, and hepatic congestion. - LFTs downtrending today; likely due to passive congestion secondary to pericardial effusion. Plan DVT prophylaxis: Patient is anticoagulated, Eliquis is held pending pericardiocentesis Diet: N.p.o. midnight Disposition: Clears, n.p.o. CODE STATUS: Full code Plan for pericardiocentesis on 06/03/2024 Admission and Anticipated Discharge Date Admission Date: June 01, 2024 Supervising Physician Co-Signing Physician Notes Attending Physician Supervision Note: I independently interviewed and examined the patient and verified the harper history and physical, reviewed labs and image studies and agree with findings and care plan noted above. seen after pericardiocentesis. comfortable in bed. and son at bedside. vitals noted nad heent nc at mmm breathing unlabored no accessory muscles good effort skin no rashes no pallor or icterus neuro no focal deficits. moderate to severe pericardial effusion - s/p pericardiocentesis 06/03. ~500ml serosanguineous fluid drained. fluid sent for testing. holding anticoagulation. elevated LFT - unclear etiology. possibly passive congestion/viral illness - work up as above. improving counts. a fib rvr - cardio considering switching antiarrhythmic agent. patient doesn't want to go back on flecainide - increased flecainide dose coincided with worsening symptoms. -continue diltiazem. Subjective Sheyla is a 68-year-old female with a past medical history of BPPV, LVH/grade 2 diastolic dysfunction, hypertension, A-fib RVR on apixaban who presented to the ER with 2 weeks of increasing heart rate in the setting of stress with some chest discomfort over the last 2 days. She has a history of A-fib on Eliquis. Sheyla is seen at the bedside. She mentions about chest pressure she is having, probably little increased since yesterday. She is able to walk around and use restroom by herself. No severe chest pain, lightheadedness or LOC recently. She seems just curious about what's causing her effusion. Cardiac team was evaluating her as well. Planning to drain her heart by afternoon today. Review of Systems Review of Systems: No fevers, chills, night sweats, changes in appetite or weight changes No headaches or changes in vision No SOB, cough, wheezing, no dysphagia No nausea, vommitting, diarrhea, hematochezia, melena No changes in urinary habits or changes in urine color No body aches or pains No swelling in abdomen or extremities. Results & Data Results & Data Vital Signs (Past 12 Hours) Vital Signs Temp Pulse Pulse Resp BP Pulse Ox O2 Del Method 06/03/24 03:41 36.7 C 71 18 124/81 94 Room Air 06/02/24 23:45 37.0 C 83 18 121/86 93 Room Air 06/02/24 21:45 87 06/02/24 19:41 37.2 C 85 17 116/77 93 Room Air Resident Activity Tracking Resident Involvement: Resident Care Provided Care Provided: Adult [facility]
[2024-06-03 07:48] LABS: C Reactive Protein 3.19 mg/dl (0-0.5)
[2024-06-03] MEDS: MoRPHine SULFATE 2 MG/ML CARP IV STA (10:06)
--- NOTE | 2024-06-03 11:29 | Pre Anesthesia Assessment ---
Date of Service June 03, 2024 Pre Sedation Assessment Vital Signs Temp Pulse Pulse Resp BP Pulse Ox O2 Del Method 06/03/24 11:21 36.6 C 88 18 109/74 97 Room Air 06/03/24 07:56 36.5 C 77 20 125/79 96 Room Air 06/03/24 03:41 36.7 C 71 18 124/81 94 Room Air 06/02/24 23:45 37.0 C 83 18 121/86 93 Room Air 06/02/24 21:45 87 06/02/24 19:41 37.2 C 85 17 116/77 93 Room Air 06/02/24 15:57 37 C 113 H 18 121/91 91 Room Air 06/02/24 12:14 37.3 C 85 18 111/75 93 Room Air Cardiovascular RRR, no murmur, no edema Respiratory normal respiratory effort, lungs clear to auscultation Pre-Sedation Airway Assessment Smoking Status: Never smoker Short, Thick Neck: No Thyromental Distance: > or= 3.5 Finger Breadths Oral Cavity: + WNL Mallampati Class: II ASA: ASA3 NPO Status Date of Last Intake of Fluids: 06/02/24 Time of Last Intake of Fluids: 18:30 Date of Last Intake of Solid Food: 06/02/24 Time of Last Intake of Solid Foods: 18:30 Notes The planned sedation has been discussed with the patient. Informed Consent was obtained. I have identified the patient, determined the appropriateness of sedation and have assessed the patient immediately prior to the procedure. All medicine(s) and interventions are by my order.
[2024-06-03] MEDS: fentaNYL citrate PF 100 MCG/2 ML VIAL ONE (12:04)
[2024-06-03] MEDS: MIDAZOLAM HCL 1 MG/ML 2ML VIAL ONE (12:06)
--- NOTE | 2024-06-03 12:18 | Post Anesthesia Assessment ---
Date of Service June 03, 2024 Post Sedation Assessment Vital Signs Temp Pulse Pulse Resp BP Pulse Ox O2 Del Method 06/03/24 11:21 36.6 C 88 18 109/74 97 Room Air 06/03/24 07:56 36.5 C 77 20 125/79 96 Room Air 06/03/24 03:41 36.7 C 71 18 124/81 94 Room Air 06/02/24 23:45 37.0 C 83 18 121/86 93 Room Air 06/02/24 21:45 87 06/02/24 19:41 37.2 C 85 17 116/77 93 Room Air 06/02/24 15:57 37 C 113 H 18 121/91 91 Room Air Recovery Score Activity: Moves 4 extremities Respiration: Deep Breath/Cough Circulation: +/-20% PreAnes Value Consciousness: Fully Awake Oxygen Saturation: > 92% On Room Air Discharge Sedation Level of Care: Fast Track Phase II Post Sedation Plan On clinical assessment, the patient appears to have tolerated the sedation without complications. Patient is recovering as anticipated. Patient will continue to be monitored by nursing and may be discharged when sedation discharge criteria are met per below protocol. Upon Completions of procedure up to 15 minutes continue every 5 minute vital signs and the P.A.R. score; then discharge to a Phase I or Fast Track to Phase II per the following guidelines: * Discharge Patient to appropriate Phase II area if PAR is 8 or greater or return to pre- procedure baseline. The post - procedure orders will be as directed. * If PAR score is less than 8 or not return to pre-procedure baseline then patient will follow Phase I monitoring till PAR is reached for Phase II. The Phase I may be done in procedure room or may call to secure a Phase I area. * If naloxone or flumazenil are used for reversal, hold in Phase I for continued monitoring from when last reversal dose was given for a minimum of 60 minutes or longer pending the nurse and/or physician discretion of patient condition before discharge to Phase II. Please call the Sedation Physician to re-evaluate and complete post-note for discharge to Phase II area. Do NOT discharge from procedure sedation or Phase 1 until post- sedation evaluation note is complete by procedure /sedation MD Sedation Discharge Instructions to be given to the patient at discharge to home. [facility] Procedure Codes (Charges) Indication for Procedure Indication for procedure: pericardial effusion Sedation/Anesthesia Procedure 1: Sedation/Anesthesia: 64508 Mod Sedation by the same physician;Init15 Min Child Age 5 & Up (initial 15 min, start 1137) Total Sedation Time (minutes): 26 Procedure 2: Sedation/Anesthesia: 69055 Mod Sedation by the same physician; Ea [id number] Minutes (additional 11 min, end 1203)
[2024-06-03 13:02] LABS: Anti Nuclear Antibody Screen NEGATIVE (NEGATIVE); Rheumatoid Factor <10 IU/mL (<14)
--- NOTE | 2024-06-03 14:11 | Critical Care Consultation ---
Date of Consultation June 03, 2024 Assessment & Plan (1) Pericardial effusion: Reason Critically Ill: 68-year-old female with moderate to large pericardial drain PLAN: CV: Pericardial effusion -Drainage per cardiology -Fluid studies pending Atrial fibrillation -Cardiology consultation reviewed -Currently rate controlled if additional rate control is needed would consider diltiazem per cardiology recommendations -Diltiazem 120 mg twice daily, metoprolol 5 mg IV Q4 as needed Fluids/Renal: Tolerating regular diet ID: No indication for anti-infectives at this time GI/Nutrition: Transaminitis -Rheumatoid factor negative, REX screen negative, hepatitis B and C serology negative hepatitis A pending Heme: Small relative increase in absolute monocytes on CBC differential: Unclear significance DVT prophylaxis: SCDs, chemoprophylaxis is contraindicated Endocrine: ICU hyperglycemia protocol Vascular access: Peripheral IV Code Status: Full code Disposition: ICU a pericardial drain in place (2) Atrial flutter with rapid ventricular response: (3) Transaminitis: History of Present Illness Reason for Consultation: Status post pericardial drain Attending Physician: Anya Ocasio MD History of Present Illness Patient is a 68-year-old female who has a past medical history of hypertension and recent diagnosis of atrial fibrillation approximately January of this year who is on apixaban for systemic anticoagulation who presented with worsening back pain, palpitations, chest discomfort. She was evaluated for acute coronary syndrome, she was found to have a moderate to large pericardial effusion. She was discontinued on apixaban, tolerated diltiazem for rate control of atrial fibrillation with rapid ventricular response and ultimately underwent pericardial drainage today. The drainage was somewhat bloody, there was concern for possible clot. During my evaluation the patient is largely asymptomatic, the pain is just at the site of the pericardial drain, she reports her back pain has improved. She does report that she feels she has reentered atrial fibrillation, she does feel when she enters and exits A-fib. Allergies Allergy/AdvReac Type Severity Reaction Status Date / Time No Known Allergies Allergy Verified 06/03/24 11:16 Home Medications Medication Instructions Recorded Confirmed Type Vitamin D3 1 gummy PO DAILY 06/01/24 06/01/24 History acetaminophen 650 mg 650 mg PO UD 06/01/24 06/01/24 History tablet,extended release apixaban 5 mg tablet (Eliquis) 5 mg PO BID 06/01/24 06/01/24 History diltiazem HCl 120 mg 120 mg PO BID 06/01/24 06/01/24 History capsule,extended release 24 hr flecainide 50 mg tablet 50 mg PO BID 06/01/24 06/01/24 History ibandronate 150 mg tablet 150 mg PO MONTHLY 06/01/24 06/01/24 History multivitamin 1 tab PO DAILY 06/01/24 06/01/24 History omeprazole 20 mg capsule,delayed 20 mg PO UD 06/01/24 06/01/24 History release Patient History Social History Smoking Status: Never smoker Second Hand Exposure: No; Do You Dip or Chew Tobacco: No; Tobacco Cessation Education Requested by Patient: No Hx Alcohol Use: No Hx Substance Use: No Preferred Language: Latvian Communication Ability: Effective Button Maker Required: No Beliefs That Will Affect Care: None Current Living Situation: Spouse Current Living Situation Comment: lives at home with Other Information That Helps Us Care for You: No Feels Safe at Home: Yes Safety Concerns: Feels Safe At This Time Assistive Devices: None Physical Exam Physical Exam: General: Alert. nontoxic. Skin: Warm, dry, Head: Atraumatic Ears, nose, mouth and throat: airway patent Cardiovascular: Normal peripheral perfusion Chest: Pericardial drain present with scant amount of serosanguineous fluid Respiratory: no respiratory distress Gastrointestinal: Non distended Musculoskeletal: No deformity Results & Data Results & Data Vital Signs (Past 12 Hours) Vital Signs Temp Pulse Resp BP BP Pulse Ox O2 Del Method 06/03/24 13:50 92 H 21 119/80 92 Room Air 06/03/24 13:27 36.7 C 78 19 110/71 93 Room Air 06/03/24 12:45 100 H 18 110/80 92 Room Air 06/03/24 12:30 100 H 18 110/59 L 91 Room Air 06/03/24 12:15 92 H 18 123/81 90 Room Air 06/03/24 11:21 36.6 C 88 18 109/74 97 Room Air 06/03/24 07:56 36.5 C 77 20 125/79 96 Room Air 06/03/24 03:41 36.7 C 71 18 124/81 94 Room Air Critical Care Results & Data Vital Signs (Past 12 Hours) Vital Signs Temp Pulse Resp BP BP Pulse Ox O2 Del Method 06/03/24 13:50 92 H 21 119/80 92 Room Air 06/03/24 13:27 36.7 C 78 19 110/71 93 Room Air 06/03/24 12:45 100 H 18 110/80 92 Room Air 06/03/24 12:30 100 H 18 110/59 L 91 Room Air 06/03/24 12:15 92 H 18 123/81 90 Room Air 06/03/24 11:21 36.6 C 88 18 109/74 97 Room Air 06/03/24 07:56 36.5 C 77 20 125/79 96 Room Air 06/03/24 03:41 36.7 C 71 18 124/81 94 Room Air Lab & Micro Results (Past 24 Hours) RBC 3.94 M/uL (4.20-5.40) L 06/03/24 WBC 6.21 K/ul (4.8-10.8) 06/03/24 Hgb 11.5 g/dl (12.0-16.0) L 06/03/24 Hct 35.8 % (37.0-47.0) L 06/03/24 MCV 90.9 fL (80.0-100.0) 06/03/24 MCH 29.2 pg (25.0-34.0) 06/03/24 MCHC 32.1 g/dL (32.0-36.0) 06/03/24 RDW Standard Deviation 44.1 fL (36.4-46.3) 06/03/24 RDW Coefficient of Variation 13.1 % (11.5-14.5) 06/03/24 Plt Count 371 K/uL (130-400) 06/03/24 MPV 9.1 fL (9.4-12.4) L 06/03/24 Neutrophils (%) (Auto) 69.6 % 06/03/24 Lymphocytes (%) (Auto) 15.0 % 06/03/24 Monocytes # (Auto) 0.75 K/uL (0.11-0.59) H 06/03/24 Eosinophils # (Auto) 0.15 K/uL (0.00-0.50) 06/03/24 Immature Granulocyte % (Auto) 0.3 % 06/03/24 Neutrophils # (Auto) 4.32 K/uL (1.40-6.50) 06/03/24 Lymphocytes # (Auto) 0.93 K/uL (1.20-3.40) L 06/03/24 Monocytes # (Auto) 0.75 K/uL (0.11-0.59) H 06/03/24 Eosinophils # (Auto) 0.15 K/uL (0.00-0.50) 06/03/24 Basophils # (Auto) 0.04 K/uL (0.00-0.20) 06/03/24 Immature Granulocyte # (Auto) 0.02 K/uL (0.01-0.20) 4 Na 139 mmol/L (136-145) 06/03/24 K 4.2 mmol/L (3.5-5.1) 06/03/24 Cl 108 mmol/L (98-107) H 06/03/24 CO2 26 mmol/L (21-32) 06/03/24 Anion Gap 5 (3-11) 06/03/24 BUN 16 mg/dl (6-23) 06/03/24 Creatinine 0.78 mg/dl (0.6-1.2) 06/03/24 BUN/Creatinine Ratio 20.5 (10-20) H 06/03/24 Glu 115 mg/dl (70-99(Fasting)) H 06/03/24 Ca 9.2 mg/dl (8.6-10.3) 06/03/24 Total Bilirubin 0.6 mg/dl (0.2-1.0) 06/03/24 AST 47 U/L (13-39) H 06/03/24 ALT 175 U/L (7-52) H 06/03/24 Alkaline Phosphatase 172 U/L (34-104) H 06/03/24 TP 5.6 gm/dl (6.0-8.3) L 06/03/24 Albumin 3.7 gm/dl (3.4-5.0) 06/03/24 Globulin 1.9 gm/dl (2.5-4.0) L 06/03/24 Albumin/Globulin Ratio 1.9 (0.9-2) 06/03/24 Calcium Level 9.2 mg/dl (8.6-10.3) 06/03/24 05:37 Microbiology 06/03/24 11:49 Gram Stain - Final Pericardial Fluid I & O Totals 24 Hours 06/02/24 06/03/24 06/04/24 06:59 06:59 06:59 Intake Total 500 / 500 100 / 100 Balance 500 / 500 100 / 100 Cumulative 06/01/24 12:18 thru 06/03/24 05:25 Intake Total 600 Balance 600 RT Ventilator Mngmt (Last Documented) Ventilator Ordered Settings Respiratory Rate 21 06/03/24 13:50 Ventilator - PT Measurements Respiratory Rate 21 Coding Level of Care Code 15036 IN/OBS CONSULT LVL 4,60M Diagnoses Pericardial effusion I31.39 Atrial flutter with rapid ventricular response I48.92 Transaminitis R74.01
--- NOTE | 2024-06-03 14:36 | Cardiology Progress Note ---
Date of Service June 03, 2024 Assessment & Plan (1) Pericardial effusion: (2) Atrial flutter with rapid ventricular response: (3) Transaminitis: Plan Impression: 1. AFib RVR 2. Large pericardial effusion 3. Elevated LFTs Ms. Phan had her pericardiocentesis today which showed a large hemo-pericardial effusion. The pericardial fluid will have cytology, gram stain and bacterial culture, and AFP. Her Eliquis should continue to be held. Her CRP was elevated, REX and RF are pending. BNP was normal. She went back into afib after her pericardiocentesis. For now we will utilize rate control with diltiazem bid and prn metoprolol pushes. She did not want to restart the higher dose of flecainide because she felt so awful on it, however it may be that she would tolerate it just fine now with the effusion drained and that it was not the medication itself causing her symptoms. Alternatively we could consider Multaq. Addendum: >500cc bloody drainage. Studies and path pending. Await further testing ?Etiology of the liver enlargement and the increased LFTs is unclear. Admission and Anticipated Discharge Date Admission Date: June 01, 2024 Subjective Ms. Phan has intermittent chest pain relieved with morphine. She has not been in afib overnight Review of Systems Review of Systems: All systems reviewed & are unremarkable except as noted in HPI & below Physical Exam Constitutional: WD/WN, vitals as above Respiratory: normal respiratory effort, lungs clear to auscultation Cardiovascular: RRR, no murmur, no edema Vessels: + JVD Skin: no rashes, warm and dry Neurologic: moves all extremities and awake Psychiatric: A+Ox3, euthymic affect Results & Data Vital Signs (Past 12 Hours) Vital Signs Temp Pulse Resp BP BP Pulse Ox O2 Del Method 06/03/24 13:50 92 H 21 119/80 92 Room Air 06/03/24 13:27 36.7 C 78 19 110/71 93 Room Air 06/03/24 12:45 100 H 18 110/80 92 Room Air 06/03/24 12:30 100 H 18 110/59 L 91 Room Air 06/03/24 12:15 92 H 18 123/81 90 Room Air 06/03/24 11:21 36.6 C 88 18 109/74 97 Room Air 06/03/24 07:56 36.5 C 77 20 125/79 96 Room Air 06/03/24 03:41 36.7 C 71 18 124/81 94 Room Air Diagnostic Findings Pt seen after procedure: 530 cc bloody pericardial fluid drained with pericardiocentesis
--- NOTE | 2024-06-03 19:04 | Electrocardiogram Report ---
Test Reason : Blood Pressure : */* mmHG Vent. Rate : 137 BPM Atrial Rate : * BPM P-R Int : * ms QRS Dur : 76 ms QT Int : 280 ms P-R-T Axes : * 57 7 degrees QTcB Int : 422 ms Atrial fibrillation with rapid ventricular response Incomplete right bundle branch block Low voltage QRS Nonspecific T wave abnormality Abnormal ECG When compared with ECG of 25-Nov-2016 13:22, Significant changes have occurred Confirmed by Melony Mcgovern (Lore) on 06/03/2024 7:03:30 PM Referred By: Confirmed By: Melony Mcgovern
[2024-06-03] MEDS: ACETAMINOPHEN 325 MG TAB PO PRN (19:54)
[2024-06-03] MEDS: METOPROLOL TARTRATE 1 MG/ML VIAL IV PRN (20:56)
[2024-06-04 04:39] LABS: Basophils # (auto) 0.04 K/uL (0.00-0.20); Basophils % (auto) 0.6 %; Eosinophils # (auto) 0.16 K/uL (0.00-0.50); Eosinophils % (auto) 2.4 %; Hematocrit (blood only) 36.7 % (37.0-47.0); Immature Granulocytes # (auto) 0.03 K/uL (0.01-0.20); Immature Granulocytes % (auto) 0.5 %; Lymphocytes # (auto) 1.08 K/uL (1.20-3.40); Lymphocytes % (auto) 16.5 %; Mean Corpuscular Hemoglobin 29.6 pg (25.0-34.0); Mean Corpuscular Hgb Conc 32.7 g/dL (32.0-36.0); Mean Corpuscular Volume 90.6 fL (80.0-100.0); Mean Platelet Volume 8.7 fL (9.4-12.4); Monocytes # (auto) 0.81 K/uL (0.11-0.59); Monocytes % (auto) 12.4 %; Neutrophils # (auto) 4.43 K/uL (1.40-6.50); Neutrophils % (auto) 67.6 %; Platelet Count 379 K/uL (130-400); RDW Coefficient of Variation 13.1 % (11.5-14.5); RDW Standard Deviation 42.8 fL (36.4-46.3); Red Blood Count 4.05 M/uL (4.20-5.40); White Blood Count 6.55 K/ul (4.8-10.8)
[2024-06-04 04:56] LABS: Albumin Globulin Ratio 1.7 (0.9-2); Albumin Level 3.3 gm/dl (3.4-5.0); BUN Creatinine Ratio 21.7 (10-20); Bilirubin,Total 0.4 mg/dl (0.2-1.0); Calcium 8.8 mg/dl (8.6-10.3); Creatinine Clr Calc Pharmacy 79.3 ml/min; Globulin 1.9 gm/dl (2.5-4.0); Total Protein 5.2 gm/dl (6.0-8.3)
--- NOTE | 2024-06-04 09:35 | Cardiology Progress Note ---
Date of Service June 04, 2024 Assessment & Plan (1) Pericardial effusion: (2) Atrial flutter with rapid ventricular response: (3) Transaminitis: Plan Impression: 1. AFib RVR 2. s/p Large hemorrhaghic pericardial effusion s/p pericardial drainage 3. Elevated LFTs Ms. Phan had her pericardiocentesis today which showed a large hemo-pericardial effusion. The pericardial fluid will have cytology, gram stain and bacterial culture, and AFP. Her Eliquis should continue to be held. Her CRP was elevated, REX and RF are pending. BNP was normal. She remains in Afib-will restart low dose fecanide 50mg bid and low dose po metoprolol tartrate. Plan to have Dr. Voss DC drain later today. will recheck limited ECHO in am to see if reaccumulation of fluid. Can get OOB to chair. Increase po fluid intake. Addendum: >500cc bloody drainage. Studies and path pending. Await further testing ?Etiology of the liver enlargement and the increased LFTs is unclear. Admission and Anticipated Discharge Date Admission Date: June 01, 2024 Subjective Ms. Phan has intermittent chest pain relieved with morphine. She remains in Afib ECHO shows near resolution of effusion; still with more solid fibrinous material; <50 cc bloody drainage in bag Pain is better no SOB Review of Systems Review of Systems: All systems reviewed & are unremarkable except as noted in HPI & below Results & Data Vital Signs (Past 12 Hours) Vital Signs Temp Pulse Resp BP Pulse Ox O2 Del Method 06/04/24 09:06 98 H 104/82 95 06/04/24 08:12 122 H 27 H 92 06/04/24 08:06 36.5 C 06/04/24 07:09 108 H 21 117/73 94 06/04/24 06:54 90 06/04/24 06:00 103 H 20 117/81 95 Room Air 06/04/24 05:09 81 17 94/77 L 92 06/04/24 04:03 85 17 103/64 94 06/04/24 03:00 78 17 93/70 L 94 06/04/24 02:03 36.8 C 88 17 90/66 L 93 06/04/24 01:03 100 H 22 93/64 L 93 06/04/24 00:04 36.8 C 83 16 92/64 L 94 06/04/24 00:00 82 06/03/24 23:09 89 18 88/56 L 91 06/03/24 22:00 89 20 91/71 L 92 Laboratory Results Abnormal lab results 06/04/24 Range/Units 04:17 RBC 4.05 L (4.20-5.40) M/uL Hct 36.7 L (37.0-47.0) % MPV 8.7 L (9.4-12.4) fL Lymph # (Auto) 1.08 L (1.20-3.40) K/uL Alexander # (Auto) 0.81 H (0.11-0.59) K/uL Chloride 109 H (98-107) mmol/L BUN/Creatinine Ratio 21.7 H (10-20) Glucose 105 H (70-99(Fasting)) mg/dl ALT 122 H (7-52) U/L Alkaline Phosphatase 143 H (34-104) U/L Total Protein 5.2 L (6.0-8.3) gm/dl Albumin 3.3 L (3.4-5.0) gm/dl Globulin 1.9 L (2.5-4.0) gm/dl Diagnostic Findings Path and cytology still pending Medications Administered Current Inpatient Medications Acetaminophen (Acetaminophen 325 Mg Tab) 650 mg PO Q12H PRN PRN Reason: Pain Stop: 07/01/24 20:45 Last Admin: 06/03/24 19:54 Dose: 650 mg Diltiazem HCl (Diltiazem Hcl 120 Mg Capcr) 120 mg PO BID EZE Stop: 07/01/24 20:59 Last Admin: 06/04/24 08:07 Dose: 120 mg Metoprolol Tartrate (Metoprolol Tartrate 1 Mg/Ml Vial) 5 mg IV Q4 PRN PRN Reason: tachycardia Stop: 07/02/24 18:10 Last Admin: 06/03/24 20:56 Dose: 5 mg Morphine Sulfate (Morphine Sulfate 2 Mg/Ml Carp) 1 mg IV Q4H PRN PRN Reason: Pain Stop: 06/15/24 17:59 Last Admin: 06/03/24 20:58 Dose: 1 mg Ondansetron HCl (Ondansetron Inj 2 Mg/Ml 2 Ml Vial) 4 mg IV Q6H PRN PRN Reason: Nausea And Vomiting Stop: 07/02/24 19:32 Last Admin: 06/02/24 19:46 Dose: 4 mg Pantoprazole Sodium (Pantoprazole 40 Mg Tab) 40 mg PO DAILY [facility] Stop: 07/02/24 08:59 Last Admin: 06/04/24 08:07 Dose: 40 mg
--- NOTE | 2024-06-04 09:35 | Hospitalist Progress Note ---
Date of Service June 04, 2024 Assessment & Plan (1) Pericardial effusion: (2) Atrial flutter with rapid ventricular response: (3) Transaminitis: Plan: g Plan #Pericardial effusion: Moderatelarge new pericardial effusion a/w Transaminitis S/P Pericardiocentesis - 06/03 >500 ccs bloody drained from pericardiocentesis. - Stable post-op: no signs of infection in her incision site. - Repeat Echo: Small effusion, Previous tamponade features no more. - 50 cc bloody drainage on drain. - Fluid analysis: Pending #A-fib RVR - Reverted to Afib post- procedure. BP: 105/65 - Under Diltiazem, Flecainide, Metoprolol 12.5 mg BID - Eliquis on hold # Transaminitis: - Likely secondary to pericardial effusion. - LFTs trending down. - Rheumatoid factor negative, REX screen negative, hepatitis B and C serology negative Plan: DVT prophylaxis: SCDs, chemoprophylaxis is contraindicated Diet: Heart Healthy Disposition:ICU CODE STATUS: Full code Admission and Anticipated Discharge Date Admission Date: June 01, 2024 Supervising Physician Co-Signing Physician Notes Attending Physician Supervision Note: I independently interviewed and examined the patient and verified the harper history and physical, reviewed labs and image studies and agree with findings and care plan noted above. seen this am. comfortable in bed. chest pressure from admission is resolved but the drain site pain present. vitals noted nad heent nc at mmm breathing unlabored no accessory muscles good effort skin no rashes no pallor or icterus neuro no focal deficits. drain - 50ml bloody moderate to severe pericardial effusion - ? sec to Eliquis. s/p pericardiocentesis 06/03. ~500ml bloody drainage. fluid sent for testing - pending. REX/RF negative. -continue to hold anticoagulation. -limited echo done today a fib rvr - Flecainide added at 50mgs bid. continue diltiazem PO bid. metoprolol added as well. elevated LFT - likely passive congestion from acute worsening of pericardial effusion. counts improved. Hepatitis profile negative. Subjective She notes that she has relief of her chest and back pressure. She still has some chest pain at the location of the catheter site (6/10 pain), but is relieved with morphine. She remains in Afib and was in Afib continuously overnight. She did not sleep well. No shortness of breath, coughing or wheezing, no new chest pain, no presyncope or syncope. Normal appetite Pt has not been out of bed as per post procedure care, used the bedpan x3 last night and then 1x catheter Review of Systems Review of Systems: Constitutional: Denies fevers, chills. Normal appetite. HEENT: Denies headaches, changes in vision, or dysphagia (mentions only time she has trouble swallowing is when her hernia flares up) Resp/CV: As per HPI GI: Denies nausea, vommitting or abdominal pain, no changes in bowel habits. :Denies changes in urinary habits (as per HPI) MSK: Denies body aches or pains Physical Exam Physical Exam: General: Alert and awake, in no acute distress well appearing. HEENT: normocephalic, atraumatic, moist mucous membranes Resp: CTAB, no wheezes, rales, or rhonchi CV: +JVD, Irregular Rhythm (AFIB), tachycardic as per HPI. No murmurs, No carotid bruits. Neck: Thyroid mildly enlarged( left lobe prominent than right) Skin: Warm and dry, no signs of infection on incision site. Extremities: peripheral pulses present and equal, no pitting edema. Results & Data Results & Data Vital Signs (Past 12 Hours) Vital Signs Temp Pulse Resp BP Pulse Ox O2 Del Method 06/04/24 09:06 98 H 104/82 95 06/04/24 08:12 122 H 27 H 92 06/04/24 08:06 36.5 C 06/04/24 07:09 108 H 21 117/73 94 06/04/24 06:54 90 06/04/24 06:00 103 H 20 117/81 95 Room Air 06/04/24 05:09 81 17 94/77 L 92 06/04/24 04:03 85 17 103/64 94 06/04/24 03:00 78 17 93/70 L 94 06/04/24 02:03 36.8 C 88 17 90/66 L 93 06/04/24 01:03 100 H 22 93/64 L 93 06/04/24 00:04 36.8 C 83 16 92/64 L 94 06/04/24 00:00 82 06/03/24 23:09 89 18 88/56 L 91 06/03/24 22:00 89 20 91/71 L 92 Resident Activity Tracking Resident Involvement: Resident Care Provided Care Provided: Adult Hospital Medicine
[2024-06-04] MEDS: LIDOCAINE 1% LOCAL 20 ML VIAL ONE (09:52)
[2024-06-04] MEDS: fentaNYL citrate PF 100 MCG/2 ML VIAL ONE (09:53)
--- NOTE | 2024-06-04 09:57 | Critical Care Progress Note ---
Date of Service June 04, 2024 Assessment & Plan (1) Pericardial effusion: Plan: Reason Critically Ill: 68-year-old female with moderate to large pericardial drain PLAN: CV: Pericardial effusion -Drainage per cardiology -Fluid studies pending Atrial fibrillation -Cardiology consultation reviewed -Initiating flecainide 50 mg twice daily and oral metoprolol Fluids/Renal: Tolerating regular diet ID: No indication for anti-infectives at this time GI/Nutrition: Transaminitis -Rheumatoid factor negative, REX screen negative, hepatitis B and C serology negative hepatitis A pending Heme: Small relative increase in absolute monocytes on CBC differential: Unclear significance DVT prophylaxis: SCDs, chemoprophylaxis is contraindicated Endocrine: ICU hyperglycemia protocol Vascular access: Peripheral IV Code Status: Full code Disposition: ICU pending repeat echo tomorrow morning status post pericardial drain removal (2) Atrial flutter with rapid ventricular response: (3) Transaminitis: Admission and Anticipated Discharge Date Admission Date: June 01, 2024 Subjective Feels better after removal of pericardial drain, no chest pain, few palpitations. No dizziness no lightheadedness Physical Exam Physical Exam: General: Alert. nontoxic. Skin: Warm, dry, Head: Atraumatic Ears, nose, mouth and throat: airway patent Cardiovascular: Normal peripheral perfusion Respiratory: no respiratory distress Gastrointestinal: Non distended Musculoskeletal: No deformity Results & Data Results & Data Vital Signs (Past 12 Hours) Vital Signs Temp Pulse Resp BP Pulse Ox O2 Del Method 06/04/24 09:06 98 H 104/82 95 06/04/24 08:12 122 H 27 H 92 06/04/24 08:06 36.5 C 06/04/24 07:09 108 H 21 117/73 94 06/04/24 06:54 90 06/04/24 06:00 103 H 20 117/81 95 Room Air 06/04/24 05:09 81 17 94/77 L 92 06/04/24 04:03 85 17 103/64 94 06/04/24 03:00 78 17 93/70 L 94 06/04/24 02:03 36.8 C 88 17 90/66 L 93 06/04/24 01:03 100 H 22 93/64 L 93 06/04/24 00:04 36.8 C 83 16 92/64 L 94 06/04/24 00:00 82 06/03/24 23:09 89 18 88/56 L 91 06/03/24 22:00 89 20 91/71 L 92 Critical Care Results & Data Vital Signs (Past 12 Hours) Vital Signs Temp Pulse Resp BP Pulse Ox O2 Del Method 06/04/24 09:06 98 H 104/82 95 06/04/24 08:12 122 H 27 H 92 06/04/24 08:06 36.5 C 06/04/24 07:09 108 H 21 117/73 94 06/04/24 06:54 90 06/04/24 06:00 103 H 20 117/81 95 Room Air 06/04/24 05:09 81 17 94/77 L 92 06/04/24 04:03 85 17 103/64 94 06/04/24 03:00 78 17 93/70 L 94 06/04/24 02:03 36.8 C 88 17 90/66 L 93 06/04/24 01:03 100 H 22 93/64 L 93 06/04/24 00:04 36.8 C 83 16 92/64 L 94 06/04/24 00:00 82 06/03/24 23:09 89 18 88/56 L 91 06/03/24 22:00 89 20 91/71 L 92 Lab & Micro Results (Past 24 Hours) RBC 4.05 M/uL (4.20-5.40) L 06/04/24 WBC 6.55 K/ul (4.8-10.8) 06/04/24 Hgb 12.0 g/dl (12.0-16.0) 06/04/24 Hct 36.7 % (37.0-47.0) L 06/04/24 MCV 90.6 fL (80.0-100.0) 06/04/24 MCH 29.6 pg (25.0-34.0) 06/04/24 MCHC 32.7 g/dL (32.0-36.0) 06/04/24 RDW Standard Deviation 42.8 fL (36.4-46.3) 06/04/24 RDW Coefficient of Variation 13.1 % (11.5-14.5) 06/04/24 Plt Count 379 K/uL (130-400) 06/04/24 MPV 8.7 fL (9.4-12.4) L 06/04/24 Neutrophils (%) (Auto) 67.6 % 06/04/24 Lymphocytes (%) (Auto) 16.5 % 06/04/24 Monocytes # (Auto) 0.81 K/uL (0.11-0.59) H 06/04/24 Eosinophils # (Auto) 0.16 K/uL (0.00-0.50) 06/04/24 Immature Granulocyte % (Auto) 0.5 % 06/04/24 Neutrophils # (Auto) 4.43 K/uL (1.40-6.50) 06/04/24 Lymphocytes # (Auto) 1.08 K/uL (1.20-3.40) L 06/04/24 Monocytes # (Auto) 0.81 K/uL (0.11-0.59) H 06/04/24 Eosinophils # (Auto) 0.16 K/uL (0.00-0.50) 06/04/24 Basophils # (Auto) 0.04 K/uL (0.00-0.20) 06/04/24 Immature Granulocyte # (Auto) 0.03 K/uL (0.01-0.20) 4 Na 140 mmol/L (136-145) 06/04/24 K 4.0 mmol/L (3.5-5.1) 06/04/24 Cl 109 mmol/L (98-107) H 06/04/24 CO2 25 mmol/L (21-32) 06/04/24 Anion Gap 6 (3-11) 06/04/24 BUN 15 mg/dl (6-23) 06/04/24 Creatinine 0.69 mg/dl (0.6-1.2) 06/04/24 BUN/Creatinine Ratio 21.7 (10-20) H 06/04/24 Glu 105 mg/dl (70-99(Fasting)) H 06/04/24 Ca 8.8 mg/dl (8.6-10.3) 06/04/24 Total Bilirubin 0.4 mg/dl (0.2-1.0) 06/04/24 AST 29 U/L (13-39) 06/04/24 ALT 122 U/L (7-52) H 06/04/24 Alkaline Phosphatase 143 U/L (34-104) H 06/04/24 TP 5.2 gm/dl (6.0-8.3) L 06/04/24 Albumin 3.3 gm/dl (3.4-5.0) L 06/04/24 Globulin 1.9 gm/dl (2.5-4.0) L 06/04/24 Albumin/Globulin Ratio 1.7 (0.9-2) 06/04/24 Calcium Level 8.8 mg/dl (8.6-10.3) 06/04/24 04:17 Microbiology 06/03/24 11:49 Gram Stain - Final Pericardial Fluid I & O Totals 24 Hours 06/03/24 06/04/24 06/05/24 06:59 06:59 06:59 Intake Total 100 / 100 360 / 360 Output Total 580 / 580 Balance 100 / 100 -220 / -220 Cumulative 06/01/24 12:18 thru 06/04/24 06:00 Intake Total 960 Output Total 580 Balance 380 RT Ventilator Mngmt (Last Documented) Ventilator Ordered Settings Respiratory Rate 27 06/04/24 08:12 Ventilator - PT Measurements Respiratory Rate 27 Coding Level of Care Code 63918 SUB INP/OBS CARE 08/16MIN Diagnoses Pericardial effusion I31.39 Atrial flutter with rapid ventricular response I48.92 Transaminitis R74.01
[2024-06-04] MEDS: FLECAINIDE ACETATE 100 MG TABLET PO SCH (10:55)
[2024-06-04] MEDS: METOPROLOL TARTRATE 25 MG TAB PO SCH (10:55)
[2024-06-04] MEDS: APIXABAN 5 MG TABLET PO SCH (10:55)
[2024-06-04 12:53] LABS: Hepatitis A Antibody IgM NON-REACTIVE (NON-REACTIVE); Hepatitis B Core Antibody IgM NON-REACTIVE (NON-REACTIVE)
--- NOTE | 2024-06-04 21:49 | Ultrasound Report ---
Exam(s): US SOFT TISSUE EXAM: US Soft Tissues of the Neck CLINICAL HISTORY: Reason for exam: ? thyroid mass ? Neck mass. TECHNIQUE: Real-time ultrasound scan of the soft tissues of the neck with image documentation. COMPARISON: No relevant prior studies available. FINDINGS: Soft tissues: Unremarkable. No abscess. No foreign body. Right thyroid lobe: 1 x 1.7 x 1.6 cm right-sided thyroid nodule containing small posterior calcification. Left thyroid lobe unremarkable Lymph nodes: Unremarkable as visualized. IMPRESSION: 1.7 cm right-sided thyroid nodule with small posterior calcifications. Dedicated thyroid ultrasound may be obtained for further evaluation. Electronically signed by: Ricci Holcomb MD 06/04/24 21:49 PM
[2024-06-05 04:42] LABS: Babesia microti DNA Not Detected (Not Detected)
[2024-06-05 06:06] LABS: Albumin Globulin Ratio 1.7 (0.9-2); Albumin Level 3.3 gm/dl (3.4-5.0); BUN Creatinine Ratio 18.1 (10-20); Bilirubin,Total 0.5 mg/dl (0.2-1.0); Calcium 8.8 mg/dl (8.6-10.3); Globulin 1.9 gm/dl (2.5-4.0); Potassium 4.2 mmol/L (3.5-5.1); Total Protein 5.2 gm/dl (6.0-8.3)
--- NOTE | 2024-06-05 08:45 | Electrocardiogram Report ---
Test Reason : Blood Pressure : */* mmHG Vent. Rate : 87 BPM Atrial Rate : 87 BPM P-R Int : 160 ms QRS Dur : 86 ms QT Int : 362 ms P-R-T Axes : 48 9 24 degrees QTcB Int : 435 ms Normal sinus rhythm Left atrial enlargement Low voltage QRS Old Inferior infarct Abnormal ECG When compared with ECG of 01-Jun-2024 12:26, Sinus rhythm has replaced Atrial fibrillation Vent. rate has decreased by 50 bpm Confirmed by Atilio De La Torre ([id number]) on 06/05/2024 8:44:40 AM Referred By: REFERRED SELF Confirmed By: Atilio De La Torre
--- NOTE | 2024-06-05 09:03 | Electrocardiogram Report ---
Test Reason : Blood Pressure : */* mmHG Vent. Rate : 91 BPM Atrial Rate : 340 BPM P-R Int : * ms QRS Dur : 84 ms QT Int : 368 ms P-R-T Axes : * 20 25 degrees QTcB Int : 452 ms Atrial fibrillation Abnormal ECG When compared with ECG of 03-Jun-2024 07:49, Atrial fibrillation has replaced Sinus rhythm Confirmed by Atilio De La Torre ([id number]) on 06/05/2024 9:03:09 AM Referred By: REFERRED SELF Confirmed By: Atilio De La Torre
--- NOTE | 2024-06-05 09:04 | Electrocardiogram Report ---
Test Reason : Blood Pressure : */* mmHG Vent. Rate : 65 BPM Atrial Rate : 65 BPM P-R Int : 204 ms QRS Dur : 86 ms QT Int : 416 ms P-R-T Axes : 42 48 49 degrees QTcB Int : 432 ms Poor data quality, interpretation may be adversely affected Normal sinus rhythm Low voltage QRS Borderline ECG When compared with ECG of 04-Jun-2024 06:42, Sinus rhythm has replaced Atrial fibrillation Confirmed by Atilio De La Torre ([id number]) on 06/05/2024 9:03:23 AM Referred By: REFERRED SELF Confirmed By: Atilio De La Torre
--- NOTE | 2024-06-05 09:06 | Critical Care Progress Note ---
Date of Service June 05, 2024 Assessment & Plan (1) Pericardial effusion: Plan: Reason Critically Ill: 68-year-old female with moderate to large pericardial drain PLAN: CV: Pericardial effusion -Drainage per cardiology -Drain discontinued yesterday, echocardiogram obtained this morning awaiting formal report Atrial fibrillation -Cardiology consultation reviewed -flecainide 50 mg twice daily and oral metoprolol Fluids/Renal: Tolerating regular diet ID: No indication for anti-infectives at this time GI/Nutrition: Transaminitis -Rheumatoid factor negative, REX screen negative, hepatitis B and C serology negative hepatitis A pending Heme: Small relative increase in absolute monocytes on CBC differential: Unclear significance -Deferring reinitiation of anticoagulation to cardiology DVT prophylaxis: SCDs, Endocrine: ICU hyperglycemia protocol Vascular access: Peripheral IV Code Status: Full code Disposition: Critical care will sign off (2) Atrial flutter with rapid ventricular response: (3) Transaminitis: Admission and Anticipated Discharge Date Admission Date: June 01, 2024 Subjective Patient feels good is hopeful to be discharged home today. Physical Exam Physical Exam: General: Alert. nontoxic. Skin: Warm, dry, Head: Atraumatic Ears, nose, mouth and throat: airway patent Cardiovascular: Normal peripheral perfusion Respiratory: no respiratory distress Gastrointestinal: Non distended Musculoskeletal: No deformity Results & Data Results & Data Vital Signs (Past 12 Hours) Vital Signs Temp Pulse Resp BP Pulse Ox 06/05/24 08:03 83 06/05/24 06:09 69 16 91 06/05/24 06:00 119/73 06/05/24 05:57 70 22 95 06/05/24 05:12 70 22 95 06/05/24 05:00 127/86 06/05/24 04:48 68 24 93 06/05/24 04:15 69 21 92 06/05/24 04:00 113/69 06/05/24 03:37 36.6 C 06/05/24 03:06 67 16 95 06/05/24 03:05 105/71 06/05/24 03:03 67 17 91 06/05/24 02:03 109/70 06/05/24 02:00 69 16 90 06/05/24 01:00 93/57 L 06/05/24 01:00 70 16 90 06/05/24 00:00 72 06/05/24 00:00 36.5 C 06/05/24 00:00 117/69 06/04/24 23:54 72 23 90 06/04/24 23:03 71 20 92 06/04/24 23:00 100/62 06/04/24 22:57 71 17 90 06/04/24 22:15 133/87 06/04/24 22:12 74 16 96 Coding Level of Care Code 42736 SUB INP/OBS CARE Diagnoses Pericardial effusion I31.39 Atrial flutter with rapid ventricular response I48.92 Transaminitis R74.01
--- NOTE | 2024-06-05 10:53 | Cardiology Progress Note ---
Date of Service June 05, 2024 Assessment & Plan (1) Pericardial effusion: (2) Atrial flutter with rapid ventricular response: (3) Transaminitis: Plan Is now back in NSR on flecanide 50mg bid would cont diltiazem 120mg CD once daily metoprolol succinate 25mg qpm Colchicine for ? 1 month if tolerated NO NOAC until seen in follow up with ECHO Reviewed with her EP Dr. He. OK to DC from my standpoint Will try to get her in for ECHO next Await rest of cytology and pathology and cultures. Will review with pathology Admission and Anticipated Discharge Date Admission Date: June 01, 2024 Subjective Patient feels good is hopeful to be discharged home today. Repeat ECHO cont to show no new fluid accumulation there is still solid material likely old clot there, but no new fluid She converter to NSR yesterday and has remained in NSR all night Review of Systems Review of Systems: All systems reviewed & are unremarkable except as noted in HPI & below Physical Exam Respiratory: normal respiratory effort, lungs clear to auscultation Cardiovascular: RRR, no murmur, no edema no JVD Results & Data Vital Signs (Past 12 Hours) Vital Signs Temp Pulse Resp BP Pulse Ox 06/05/24 09:00 81 23 95 06/05/24 09:00 134/85 06/05/24 08:03 82 31 H 96 06/05/24 08:03 83 06/05/24 08:00 121/75 06/05/24 07:45 82 21 96 06/05/24 07:00 71 16 92 06/05/24 07:00 120/73 06/05/24 06:09 69 16 91 06/05/24 06:00 119/73 06/05/24 05:57 70 22 95 06/05/24 05:12 70 22 95 06/05/24 05:00 127/86 06/05/24 04:48 68 24 93 06/05/24 04:15 69 21 92 06/05/24 04:00 113/69 06/05/24 03:37 36.6 C 06/05/24 03:06 67 16 95 06/05/24 03:05 105/71 06/05/24 03:03 67 17 91 06/05/24 02:03 109/70 06/05/24 02:00 69 16 90 06/05/24 01:00 93/57 L 06/05/24 01:00 70 16 90 06/05/24 00:00 72 06/05/24 00:00 36.5 C 06/05/24 00:00 117/69 06/04/24 23:54 72 23 90 06/04/24 23:03 71 20 92 06/04/24 23:00 100/62 06/04/24 22:57 71 17 90 Laboratory Results Abnormal lab results 06/05/24 Range/Units 05:36 Chloride 109 H (98-107) mmol/L Glucose 101 H (70-99(Fasting)) mg/dl ALT 88 H (7-52) U/L Alkaline Phosphatase 136 H (34-104) U/L Total Protein 5.2 L (6.0-8.3) gm/dl Albumin 3.3 L (3.4-5.0) gm/dl Globulin 1.9 L (2.5-4.0) gm/dl Medications Administered Current Inpatient Medications Acetaminophen (Acetaminophen 325 Mg Tab) 650 mg PO Q12H PRN PRN Reason: Pain Stop: 07/01/24 20:45 Last Admin: 06/04/24 22:14 Dose: 650 mg Diltiazem HCl (Diltiazem Hcl 120 Mg Capcr) 120 mg PO BID EZE Stop: 07/01/24 20:59 Last Admin: 06/05/24 09:33 Dose: 120 mg Flecainide Acetate (Flecainide Acetate 100 Mg Tablet) 50 mg PO BID EZE Stop: 07/04/24 09:44 Last Admin: 06/05/24 09:34 Dose: 50 mg Metoprolol Tartrate (Metoprolol Tartrate 1 Mg/Ml Vial) 5 mg IV Q4 PRN PRN Reason: tachycardia Stop: 07/02/24 18:10 Last Admin: 06/03/24 20:56 Dose: 5 mg Metoprolol Tartrate (Metoprolol Tartrate 25 Mg Tab) 12.5 mg PO BID EZE Stop: 07/04/24 09:44 Last Admin: 06/05/24 09:34 Dose: 12.5 mg Morphine Sulfate (Morphine Sulfate 2 Mg/Ml Carp) 1 mg IV Q4H PRN PRN Reason: Pain Stop: 06/15/24 17:59 Last Admin: 06/04/24 22:16 Dose: 1 mg Ondansetron HCl (Ondansetron Inj 2 Mg/Ml 2 Ml Vial) 4 mg IV Q6H PRN PRN Reason: Nausea And Vomiting Stop: 07/02/24 19:32 Last Admin: 06/02/24 19:46 Dose: 4 mg Pantoprazole Sodium (Pantoprazole 40 Mg Tab) 40 mg PO DAILY EZE Stop: 07/02/24 08:59 Last Admin: 06/05/24 09:34 Dose: 40 mg
--- NOTE | 2024-06-05 13:24 | Discharge Summary ---
Date of Service June 05, 2024 Admission HPI Per Admitting Provider Sheyla is a 68-year-old female with a past medical history of BPPV, LVH/grade 2 diastolic dysfunction, hypertension, A-fib RVR on apixaban who presented to the ER with 2 weeks of increasing heart rate in the setting of stress with some chest discomfort over the last 2 days. She does have history of A-fib on Eliquis. Sheyla is seen at the bedside. She reports for the last few days she has had worsened palpitations and chest discomfort which have worsened greatly in the last 2 days around taking additional flecainide. Feels overall tired and very washed out. She was recently diagnosed with A-fib a few months ago but had been generally doing well on diltiazem and flecainide up until the last 2 weeks. She has some discomfort and fluttering in her chest which goes into her back but no lightheadedness dizziness shortness of breath or diaphoresis. She does not feel like she is going to pass out. Was in [place] in January, was started on dilt/eliquis for new onset afib that time. Sees Kathe Ramirez with [facility]. Stress echo Feb 2024 with no ischemic findings, but did show small circumferential effusion at that time Now on 50mg BID of flecanide, but continued to feel worse. Returned to her lower dose but still felt poor and still had pressure like epigastric discomfort, mid pain discomfort, and palpitations Has not been sick recently although has been under stress. She denies any fever chills or night sweats. She has not had weight loss. She has not noticed any yellowing of her skin or jaundice. She does not have any pain with meals she does not have any right upper quadrant pain. Her bowel movements are regular and brown she has not had any white or manuel colored bowel movements although notes that her family member experienced white stools right for she was diagnosed with renal cancer. Discussed that did not suspect she had renal cancer, with screening for symptoms of gallbladder obstruction. Patient has not had any melena or hematochezia. Records from [facility] requested Medical History: Reviewed Medications: Reviewed Surgical History: Reviewed Family history: Reviewed Allergies: Reviewed Social History: No tobacco or alcohol use Code Status: Full code Principal Diagnosis Pericardial Effusion S/P Pericardiocentesis Afib with RVR, reverted to NSR on Discharge. Discharge Exam General: Alert and awake, in no acute distress well appearing. HEENT: normocephalic, atraumatic, moist mucous membranes Resp: CTAB, no wheezes, rales, or rhonchi CV: +JVD, regular rhythm, tachycardic as per HPI. No murmurs, No carotid bruits. Neck: Thyroid mildly enlarged Skin: Warm and dry, no signs of infection on incision site. Extremities: peripheral pulses present and equal, no pitting edema. Discharge Data Allergies Allergy/AdvReac Type Severity Reaction Status Date / Time No Known Allergies Allergy Verified 06/03/24 11:16 Consultations 06/01/24 16:31 ED Decision to Admit Stat 06/01/24 17:49 Consult Cardiology Routine 06/03/24 13:41 Consult Detective Lieutenant Routine Procedures Performed Operation Date: 06/03/24 13:00 Actual Procedures p PRCRD DRG 6YR+ W/O CGJAYAR - Antoine Voss MD, PhD Ordered Studies 06/01/24 13:58 CT abd pelvis IV con only Stat 06/01/24 16:39 US liver Urgent 06/03/24 11:20 CL Cath Imgs for PACS use only Routine 06/04/24 08:00 US Neck [US soft tissue head and neck] Routine Hospital Course (1) Transaminitis: (2) Pericardial effusion: (3) Atrial flutter with rapid ventricular response: (4) HTN (hypertension): Plan #Pericardial effusion: S/P Pericardiocentesis Moderatelarge new pericardial effusion Repeat Echo: Minimal effusion Fluid analysis pending; F/U in Outpatient basis. Colchicine 0.6 mg once daily added for pain per cardio. #A-fib RVR Reverted to Afib post- procedure; Sinus on DC Under Diltiazem 120 mg Once daily, Flecainide 50 BID and Metoprolol succinate 25 Once daily Eliquis on hold until cardio restarts. # Transaminitis: Likely secondary to pericardial effusion. LFTs trended down on admission. Rheumatoid factor negative, REX screen negative, hepatitis B and C serology negative #Thyroid nodule Right sided thyroid nodule of 1.7cm with microcalcification; TSH :2.1 F/U Outpatient basis Total Time Total Time Spent Total Time Spent (In Minutes): See attending's attestation Discharge Plan Discharge Items Patient Disposition: Home - Self-Care Reason For Visit: AFIB RVR, TRANSAMINITIS, PERICARDIAL EFFUSION Discharge Diagnosis: Pericardial effusion S/P Pericardiocentesis Afib with controlled VR Activity: Per Instructions section Non-emergency contact: Primary Care Provider and Electrical Intern Call non-emergency contact if: your pain is concerning for you and your wound pain has increased Follow-up/Referrals: Anya Ocasio MD [Primary Care Provider] - 06/11/24 3:40 pm (Hospital follow up on June 11 at 3:40 with an arrival time of 3:25) Diet: Heart Healthy Addtl Attending Provider Instructions: You were admitted to the hospital for pericardial effusion, which was drained in hospital. You were treated with A discharge summary will be sent to your primary care physician to ensure continuity of care. Please bring this discharge summary with you to your next office appointment so that your provider can review it at that time. Follow-up appointments: Make a follow-up appointment with your PCP within the next week. It is very important that you follow up with them shortly after discharge from the hospital. We have requested a follow-up appointment with your vehicle insurance agent physician within one week of discharge. Please call their office if you do not hear from them. Keep all your follow-up appointments as already scheduled. If you cannot make an appointment, notify your provider. Medications: Your medication list has been reviewed and reconciled upon discharge to ensure accuracy and continuity of care. An updated list of all your medications is included with your hospital discharge paperwork. Please review this list closely, and make note of any changes. We sent a new medication called Metoprolol Succinate to your pharmacy. Take Metoprolol 25 mg 1 tab once daily QPM for 30 days. If you have any issues filling these prescriptions, please call [phone] and ask to leave a message for Dr. Daisy Velez. Take your medications as instructed; do not skip a dose of your medicines. Make sure all of your doctors know every medicine you are taking (including [id number] medicines, vitamins, and supplements). Call your primary care provider before taking any new medicines (including over- the-counter medicines, vitamins, and supplements), because some of these may interact with your current medications, or may make your symptoms worse. Tell your primary care provider if you cannot afford your medications. CONTACT YOUR PRIMARY CARE PROVIDER if you experience any of the following: Worsening of symptoms Fever, chills, or fatigue Difficulty following your treatment plan, or difficulty taking medications CALL 911 OR GO TO THE EMERGENCY DEPARTMENT if you experience any of the following: Sudden, severe abdominal pain or nausea/vomiting Severe chest pain, or chest pain that radiates (moves) to your jaw or arm Sudden, severe shortness of breath or difficulty breathing Thank you for allowing us to participate in your care. Pending Studies at Discharge: No Stand-Alone Forms: My [facility] [address], Smoking Cessation Medications and DC Order Prescriptions: New diltiazem HCl 120 mg capsule,extended release 24hr 120 mg PO DAILY Qty: 30 0RF colchicine 0.6 mg capsule 0.6 mg PO DAILY 30 Days Qty: 30 0RF metoprolol succinate 25 mg tablet extended release 24 hr 25 mg PO DAILY 30 Days Qty: 30 0RF Continued flecainide 50 mg tablet 50 mg PO BID omeprazole 20 mg capsule,delayed release(DR/EC) 20 mg PO UD Rx Instructions: 20 mg po daily. Per patient, she took med for 60 days (around february to apr) and stopped. Had discomfort today and took one. Doesn't usually take as a daily medication ibandronate 150 mg tablet 150 mg PO MONTHLY multivitamin Tablet 1 tab PO DAILY acetaminophen 650 mg Tablet Extended Release 650 mg PO UD Rx Instructions: per pt she may take once or twice a day Vitamin D3 1 gummy PO DAILY Discontinued diltiazem HCl 120 mg capsule,extended release 24hr 120 mg PO BID Eliquis 5 mg tablet 5 mg PO BID Discharge Orders: Discharge Order (Routine); Ordered 06/05/24 Ordered By: Daisy Velez Admission Data Admit Date/Time: 06/01/24 17:49 Attending Provider: Anya Ocasio Admit Provider: Blake Perkins Primary Care Provider: Anya Ocasio Other Providers: Blake Perkins; Melony Mcgovern; Chico Quintanilla Other Interventions: Discharge Summary Assessment (RN) Last Done: 06/05/24 11:21 Supervising Physician Co-Signing Physician Notes Attending Physician Supervision Note: I independently interviewed and examined the patient and verified the harper history and physical, reviewed labs and image studies and agree with findings and care plan noted above. chest pain off and on. vitals noted nad heent nc at mmm breathing unlabored no accessory muscles good effort skin no rashes no pallor or icterus neuro no focal deficits. moderate to severe pericardial effusion - ? sec to Eliquis. s/p pericardiocentesis 06/03. ~500ml bloody drainage. fluid sent for testing - pending. REX/RF negative. -limited echo with no recurrence. -To continue to hold anticoagulation on discharge -colchicine for pericardial chest pain. a fib rvr - continued to stay in a fib through hospital stay. -Home on Flecainide 50mgs bid, diltiazem 120mgs daily, metoprolol 25 mgs daily. elevated LFT - mostly resolved. likely passive congestion from acute worsening of pericardial effusion. Hepatitis profile negative.
--- NOTE | 2024-06-06 16:36 | Cardiac Catheterization ---
[facility] Data: Pediatric Np Cardiac Status Clinical evaluation leading to the procedure CAD Presenation: No Sxs, No angina Diagnostic Physicians Name: Antoine Voss MD, PhD Closure Device Percutaneous Entry Location: Left anterior chest Recommendations: Medical Therapy and/or Counseling and Management Recommendatons (24 hours with pericardial drain. Evaluate for recurrence or significant residual drainage. Remove when none.) Cardiac Cath Procedure Full Procedure Date June 03, 2024 Pre-Procedure Diagnosis Pre-Procedure Diagnosis: Pericardial Disease AUC Score AUC Score: N/A Post-Procedure Diagnosis Post-Procedure Diagnosis: Cardiothoracic Finding (Bloody pericardial effusion status post successful pericardiocentesis) Procedure(s) Performed Procedure(s) Performed: Ultrasound Guided Vascular Access and Pericardiocentesis Measurement Operator Antoine Voss MD, PhD Estimated Blood Loss Estimated Blood Loss: Less than 2 cc (excluding pericardial fluid) Medication(s) Medication(s): Fentanyl, Lidocaine 1% and Versed Summary of Findings Brief description: Patient was brought to the cardiac catheterization suite where she was shaved and prepped in a sterile fashion. Sedated using IV Versed and fentanyl. Soft tissues of the anterior chest were anesthetized using 10 mL of 1% Xylocaine. Th e ultrasound was placed in the subcostal view. Under ultrasonic guidance, the 4 [place] micropuncture needle was advanced with negative pressure applied via the syringe. This was at the fourth intercostal space anteriorly. Visually identified needle enter the pericardium and aspiration of bloody pericardial fluid. Then, the 0.014 [place] wire was advanced through the needle and again was visualized on the ultrasound. The needle was removed and fluoroscopy was used to confirm wire in the pericardial space. Then, the 4 [place] micropuncture sheath was advanced over the wire and the wire was removed. Agitated saline was injected through the sheath and confirmation of pericardial bubbles was made with the ultrasound. Then, the 0.035 J-tip wire was advanced through the sheath and positioned within the pericardium. This was also confirmed by fluoroscopy. The sheath was removed and a 6 [place] vascular sheath was advanced under fluoroscopic observance into the pericardium. A pigtail pericardial drain was advanced over the wire through the sheath and into the pericardial space. 60 cc of bloody pericardial fluid was aspirated and sent for laboratory work. Then, a total of 530 cc of pericardial fluid was removed until there was no significant residual pericardial fluid as confirmed by ultrasound. The pigtail drain was attached to the negative pressure drain system (accordion) and collection bag. This sheath was sutured in place. The pigtail drain was tied to the sheath. A Biopatch was placed at the skin entrance site and then the whole sheath plus drain were covered with a large Tegaderm. Patient remained hemodynamically stable and asymptomatic. She was returned to the recovery area. This ended the case. Hemodynamics Rest Ao:: Invasive not performed Final Ao: Invasive not performed LV: Invasive not performed Recommendations Recommendations: Medical Therapy and/or Counseling and Management Recommendatons (24 hours with pericardial drain. Evaluate for recurrence or significant residual drainage. Remove when none.) Radiation Exposure (mGy) 18 mGy, 0.9 minutes fluoroscopy time Contrast (mls) None Anesthesia 1 mg Versed, 25 mcg fentanyl IV. Start time 1137, end time 1203 Procedural Complication(s) None Disposition ICU I attest to the content of the Intraoperative Record and any orders documented therein. Any exceptions are noted below. [facility] Card Cath Procedure Codes Therapeutic Services & Ancillary Procedure 1: Cardiovascular Tx and Anc Procedures: 54092 Pericardiocentesis w / Imaging Procedure 2: Cardiovascular Tx and Anc Procedures: 53994 Ultrasonic Guidance Pericardiocentesis Moderate Sedation Procedure 1: Sedation/Anesthesia: 57171 Mod Sedation by the same physician;Init15 Min Child Age 5 & Up (Initial 15 minutes, start time 1137) Procedure 2: Sedation/Anesthesia: 76954 Mod Sedation by the same physician; Ea [id number] Minutes (Additional 11 minutes, end time 1203) PG Care Time/CCT Total # of Minutes Spent Total Time Spent with Patient: Total time spent is greater than 50% in coordination of care (as documented) at patient's floor/unit and/or counseling patient:
[2024-06-10 14:02] LABS: Pericardial Fld,Total Protein 5.3 g/dL; Pericardial Fluid, Glucose 81 mg/dL; Pericardial Fluid, LDH >1300 U/L
== END 2024-06-05 13:00 | disposition home or self-care (01) | DRG 315 ==
LOC: SUATTDRO → ED 12:18 → SUATTDRO 17:49 → 2S 17:49 → 1E 06-03 13:36

== ENCOUNTER 2025-07-02 07:00 | Inpatient (IN) ==
--- NOTE | 2025-05-14 14:50 | PAT Medication Instructions ---
Medication Instructions Date of Service May 14, 2025 Home Medications acetaminophen 650 mg tablet,extended release 650 mg PO UD ibandronate 150 mg tablet 150 mg PO MONTHLY multivitamin 1 tab PO DAILY aspirin 81 mg capsule 81 mg PO QAM diltiazem HCl 120 mg capsule,extended release 24 hr 120 mg PO DAILY PRN metoprolol succinate 25 mg tablet,extended release 24 hr 25 mg PO HS Continue as directed acetaminophen 650 mg tablet,extended release 650 mg PO UD diltiazem HCl 120 mg capsule,extended release 24 hr 120 mg PO DAILY PRN(if needed) ASK your prescriber and surgeon aspirin 81 mg capsule 81 mg PO QAM DO NOT take the morning of surgery ibandronate 150 mg tablet 150 mg PO MONTHLY multivitamin 1 tab PO DAILY Take evening before surgery metoprolol succinate 25 mg tablet,extended release 24 hr 25 mg PO HS Other Notes NOTHING TO EAT OR DRINK AFTER MIDNIGHT. If you have any questions please call us at [phone] or [phone] or [phone] or [phone]
--- NOTE | 2025-05-21 10:34 | Anesthesiology Consultation ---
Date of Service May 21, 2025 Assessment & Plan (1) Encounter for pre-operative examination: Chart Review Chart Review: Acceptable Risk for Surgery (pending 03/19/25 MAXIMO/ 2023 stress test (if available), and surgeon ordered PCP clearance ) and Patient seen in Pre Admission Testing - Please obtain MAXIMO and EKG from [facility] 03/19/25 - Please obtain stress test from 2023 from [facility] - Awaiting PCP clearance 05/20/25 (Dr Mallory Golden) - Per surgeon's office - UA with culture if indicated is only needed (not a urine culture) - Patient is NOT an ideal OPJ candidate (currently 23 hour obs) Per PAT appt on 05/21/25, no recent illness/disease exposures, illness related symptoms, or recent illness/disease positive tests. Will leave to surgeon's discretion if preop Covid testing needed Cardiology visit 04/03/25= "... Follow-up on her history A-fib status post ablation and Watchman under [facility] October 2024... Large bloody pericardial effusion drained of 530 cc 06/06/2024 at [facility]... preparing for hip surgery. She has good functional capacity and can achieve at least 4 METS. She is not having any concerning anginal symptoms. She appears euvolemic. She can proceed at an intermediate risk for cardiac complication perioperatively. She should be maintained on her baby aspirin perioperatively..." Teaching & Discussion Pre-Anesthesia Teaching/Discussion Notes: Instructed NPO after midnight before surgery,except medications with 15 cc of water. Medication instructions provided according to the PAT guidelines. History Surgery Operation Date: 07/02/25 08:50 Proposed Procedures p Right Total Hip Arthroplasty - Blake uDvall MD Height/Weight Height: 5 ft 8 in Weight: 73.7 kg Allergies Allergy/AdvReac Type Severity Reaction Status Date / Time No Known Allergies Allergy Verified 05/14/25 12:57 Medications Home Medications Medication Instructions Recorded Confirmed Last Taken acetaminophen 650 mg 650 mg PO UD 06/01/24 05/14/25 Unknown tablet,extended release ibandronate 150 mg tablet 150 mg PO MONTHLY 06/01/24 05/14/25 06/01/24 multivitamin 1 tab PO DAILY 06/01/24 05/14/25 Unknown aspirin 81 mg capsule 81 mg PO QAM 05/14/25 05/14/25 Unknown diltiazem HCl 120 mg 120 mg PO DAILY PRN Pain 05/14/25 05/14/25 Unknown capsule,extended release 24 hr metoprolol succinate 25 mg 25 mg PO HS 05/14/25 05/14/25 Unknown tablet,extended release 24 hr Past Medical History Medical History (Updated 05/21/25 @ 15:17 by Diana Whatley PA-C) BPV (benign positional vertigo) stable Hiatal hernia slight - occ reflux - no medications needed (diet dependent) History of atrial fibrillation dx 01/2024 HTN (hypertension) Pericardial effusion 06/02/2024- s/p pericardiocentesis 06/03/24 - resolved on 06/05/24 ECHO Presence of Watchman left atrial appendage closure device 11/10/2024- placed at [facility] [place] Thyroid nodule Noted on 06/17/24 thyroid ultrasound Following PSH (general surgeon)- stable at this time Exercise / Class Metabolic Activity II 4-5 Yardwork/Stairs/Walk up hill (one flight of stairs- no chest pain or SOB - walks a mile daily/every other day) Past Surgical History Surgical History History of cardiac ablation 11/10/2024- for afib, [facility] [place] History of transesophageal echocardiography (MAXIMO) Past Anesthesia History No Hx of Anesthesia Complications and No Family Hx of Anesthesia Complications History of PONV No Hx of PONV and No Hx of Motion Sickness Social History Smoking Status: Never smoker Do You Dip or Chew Tobacco: No Hx Alcohol Use: Yes alcohol intake frequency: a few times a month Hx Substance Use: No substance use type: does not use Review of Systems Patient denies chest pain, shortness of breath, dyspnea on exertion, cough, wheezing, palpitations. No hx of seizures, stroke, [place], apnea/snoring. No hx of blood clots or blood transfusions Physical Exam Vital Signs VITALS BP 127/79 P 71 TEMP 97.7 SP02 98% RESP 16 Constitutional no acute distress ENMT Mouth: no TMJ clicking Thyromental Distance: > or= 3.5 Finger Breadths (3.5) Mallampati Class: III Neck neck extension not limited Respiratory normal respiratory effort; no respiratory distress Auscultation: lungs clear to auscultation bilaterally; no wheezes Cardiovascular Rate/Rhythm: regular rate and regular rhythm Heart Sounds: no murmur Vessels: no carotid bruit Musculoskeletal Spine: no pain with cervical ROM Extremities: extremities normal to inspection Psychiatric Orientation: alert Lab Results Anesthesia Preop Results Results Anesthesia Widget: WBC 3.42 K/ul (4.8-10.8) L 05/21/25 Hgb 14.2 g/dl (12.0-16.0) 05/21/25 Hct 40.8 % (37.0-47.0) 05/21/25 Plt 261 K/uL (130-400) 05/21/25 Na 141 mmol/L (136-145) 05/21/25 K 3.8 mmol/L (3.5-5.1) 05/21/25 Cl 107 mmol/L (98-107) 05/21/25 CO2 28 mmol/L (21-32) 05/21/25 BUN 18 mg/dl (6-23) 05/21/25 Creat 0.69 mg/dl (0.6-1.2) 05/21/25 Glucose Level 71 mg/dl (70-99(Fasting)) 05/21/25 PT 10.3 Seconds (9.0-12.0) 05/21/25 PTT 25 Seconds (21-31) 05/21/25 INR 1.0 (0.9-1.1) 05/21/25 Urine Color Yellow 05/21/25 Urine Appearance Clear (Clear) 05/21/25 Urine pH 7.0 (4.5-7.5) 05/21/25 Urine Specific [place] 1.012 (1.000-1.030) 05/21/25 Urine Protein Negative (Negative) 05/21/25 Urine Glucose (UA) Negative (Negative) 05/21/25 Urine Ketones Negative (Negative) 05/21/25 Urine Blood Negative (Negative) 05/21/25 Urine Nitrite Negative (Negative) 05/21/25 Urine Bilirubin Negative (Negative) 05/21/25 Urine Urobilinogen Negative (Negative) 05/21/25 Urine Leukocyte Esterase Negative (Negative) 05/21/25 Blood Type O Positive 05/21/25 Antibody Screen NEGATIVE 05/21/25 Testing Electrocardiogram Date: 05/21/25 Findings: + NSR @ (64bpm) Echocardiogram Date: 12/03/24 LIMITED 2D ECHO (to evaluate pericardium) No pericardial effusion Normal LV size and systolic function. EF 65-70% Mild LVH Normal RV size and function Compared to the previous limited study performed 06/12/2024- there is no change per cardio ECHO 06/02/2024 There is a moderate to large circumferential pericardial effusion noted. Fibrinous material is noted within the fluid adherent to the surface of the RV wall; this may represent clot No evidence of RV collapse. RA is starting to show signs of early tamponade physiology LVEF= >70% LV is hyperdynamic LV cavit yis small Grade I DD Inferior vena cava is moderately dilated
--- NOTE | 2025-06-16 09:58 | History & Physical Report ---
Date of Service June 16, 2025 Assessment & Plan (1) Osteoarthritis of right hip: Plan: PRE-OP Diagnosis: Right hip osteoarthritis Planned Procedure: Right total hip arthroplasty Plan: Patient is scheduled to undergo this procedure at the [facility] with Dr. Duvall on June. Risks and complications of the procedure such as: Infection, bleeding, pain, scarring, nerve blood vessel damage, weakness, wound problems, stiffness, incomplete relief of symptoms, hardware failure, hardware loosening, wear, fracture, tendon or ligament injury, dislocation, leg length inequality, blood clots, embolism, heart attack, stroke and were explained to the patient at her visit today. Informed consent to perform the procedure was obtained. Patient met with anesthesia on May 21 and while there she obtained a CBC with differential, complete metabolic panel, PT/INR, blood type and screen, urinalysis, urine culture and sensitivity, EKG, and a nasal culture for MRSA. We have already obtained preoperative medical clearance from the patient's primary care provider and her collection technician.. Patient states that she plans on doing in-home physical therapy for the first 1 to 2 weeks postoperatively with a local provider. Patient states that she will most likely elect to do outpatient physical therapy at our clinic with Sugar. Patient is a walker, raised toilet seat and a shower chair. She will need to obtain a hip kit. During today's visit we reviewed the total hip packet as well as precautions. We discussed discharge planning from the hospital. I provided paperwork to obtain a handicap placard for their vehicle. We discussed lectures offered by [facility] in regards to joint replacement surgery via Zoom. I advised the patient that upon discharge from hospital we will prescribe a narcotic pain medication and anti- inflammatory. Patient will also be on an 81 mg aspirin twice daily for blood clot prevention. Patient will be scheduled for 2-week postoperative follow-up visit with [facility] on 07/14/25. History of Present Illness Chief Complaint: Chief Complaint: Right hip pain Primary Care Provider: Anya Ocasio MD History of Present Illness (including history relevant to procedure): This 69-year-old female presents to the clinic today for her preoperative history and physical. Patient complains of a several year history of right sided hip pain primarily in her groin and posterolateral aspect of her hip. Patient states she has had 2 intra-articular corticosteroid injections and done extensive physical therapy with no real relief. She states that it is affecting her activity level greatly. She states that currently she is utilizing Tylenol for pain relief. Due to failed conservative management patient is electing to proceed with surgical intervention. Review Of Systems: A 12 point review of systems is performed and is unremarkable except for those things stated in the HPI past medical history. Past Medical History: Problems: Osteoarthritis of right hip S/P total right hip arthroplasty Right hip pain Afib Grade II diastolic dysfunction Mild concentric left ventricular hypertrophy (LVH) Mild pulmonary hypertension Difficulty swallowing solids Heart murmur Vitamin D insufficiency Osteoporosis Hypertension, benign Hernia, hiatal Benign paroxysmal positional vertigo IT band syndrome Trochanteric bursitis of right hip Procedure History Procedure Procedure Date Comments Repair of vaginal tear Esophagogastroduodenoscopy Closed drainage of pericardial effusion - 500ml. Drained at [facility]. Likely viral Colonoscopy 12/04/2023 - Repeat colonoscopy in 5 years for family history of colon cancer. - C) Hepatic flexure polyp, polypectomy:Colonic mucosa with lymphoid aggregate, negative for intraepithelial neoplasm.D) Colon polyp at 45 cm, polypectomy:Hyperplastic polyp. - - One 3 mm polyp at the hepatic flexure, removed with a cold biopsy forceps. Resected and retrieved. - One 3 mm polyp at 45 cm proximal to the anus, removed with a cold biopsy forceps. Resected and retrieved. - Redundant colon. - The examination was otherwise normal on direct and retroflexion views. EGD - esophagogastroduodenoscopy 12/04/2023 - A) Gastric antrum, biopsy:Congestion and epithelial repair compatible with reactive gastropathy-healing erosive gastritis.COMMENT:No Helicobacter pylori organisms can be identified on an immunohistochemical stain for H. pylori.B) Gastroesophageal junction, biopsy:Squamous mucosa with patchy, mild epithelial repair.Gastric columnar mucosa with mild chronic inflammation and epithelial repair.COMMENT:No intestinal metaplasia or dysplasia identified. The histologic findings in B may correlate with symptoms of reflux. - - Esophagogastric landmarks identified. - 1 cm hiatal hernia. - Mild Schatzki ring. Biopsied. - Erythematous mucosa in the antrum. Biopsied. - Normal examined duodenum. - The examination was otherwise normal. Mammogram 05/19/2021 - There is no mammographic evidence of malignancy DEXA (dual energy X-ray absorptiometry) of lateral spine 05/19/2021 - Impression: AP Spine L1-L4 is 0.811 g/cm2 with T score of -3.1 Femur Neck Left is 0.808 g/cm2 with T score of -1.7. Femur Neck Right is 0.764 g/cm2 with T score of -2.0. Femur Total Left is 0.840 g/cm2 with T score of -1.3 Femur Total Right is 0.784 g/cm2 with T score of -1.8. Z - score of 1.5, this patient's BMD is low for someone of this age Bone density scan 04/10/2019 - AP spine L1- L4 is 0.794 with a T score of -3.2Femur Neck left is 0.829 with a Tscore of -1.5Femur Neck right is 0.765 with a Tscore of -2.0Femur Total Mean is 0.769 with a T score of -1.9Z score of -1.6 , this patients BMD is low for someone of this age Cervical cytology brush 01/15/2019 - Negative for intraepithelial lesion or malignancy. Mammogram 11/26/2018 - acr bi-rads category 2: benign there is no mammographic evidence of malignancy. a 1 yr screening mammogram is recommended. (11/26/18). the patient will receive written notification of the results Colonoscopy 11/21/2018 - A few diverticula were found in the sigmoid colon Mammogram 12/22/2016 - No malignancy. One year screening recommended. PAP test date 12/08/2016 - Negative for intraepithealial lesion or malignancy. - normal exam Chest x-ray 11/25/2016 - negative EKG 11/25/2016 - normal sinus Emergency medical services 11/25/2016 - [facility] ER with vertigo and hypertension CT brain w/o contrast Cardiac ablation Watchman procedure Appendectomy 11/26/2015 03/20/2025 - no acute intracranial abnormality -[facility] Allergies and Sensitivities: Allergy Not found in Search(Facial Swelling) Allergy Not found in Search(French peppers of all colors) Current Home Meds: (Last Updated 06/12 14:01) aspirin (aspirin 81 mg oral delayed release tablet) 81 mg PO Daily cholecalciferol (Vitamin D3 1000 intl units (25 mcg) oral capsule) 25 mcg PO Daily dilTIAZem (Cartia XT 120 mg/24 hours oral capsule, extended release) 1 cap PO Daily ibandronate (ibandronate 150 mg oral tablet) TAKE 1 TABLET EVERY MONTH metoprolol (Metoprolol Succinate ER 25 mg oral tablet, extended release) 25 mg PO Daily multivitamin 1 tab PO Daily Allergies Allergy/AdvReac Type Severity Reaction Status Date / Time No Known Allergies Allergy Verified 05/14/25 12:57 Home Medications Medication Instructions Recorded Confirmed Type acetaminophen 650 mg 650 mg PO UD 06/01/24 05/14/25 History tablet,extended release ibandronate 150 mg tablet 150 mg PO MONTHLY 06/01/24 05/14/25 History multivitamin 1 tab PO DAILY 06/01/24 05/14/25 History aspirin 81 mg capsule 81 mg PO QAM 05/14/25 05/14/25 History diltiazem HCl 120 mg 120 mg PO DAILY PRN Pain 05/14/25 05/14/25 History capsule,extended release 24 hr metoprolol succinate 25 mg 25 mg PO HS 05/14/25 05/14/25 History tablet,extended release 24 hr Past Med/Surg History Problem List (Updated 06/16/25 @ 09:57 by Krishna Chin PA-C) Osteoarthritis of right hip Encounter for pre-operative examination Transaminitis HTN (hypertension) (Chronic) BPV (benign positional vertigo) (Chronic) Medical History Thyroid nodule Noted on 06/17/24 thyroid ultrasound Following PSH (general surgeon)- stable at this time BPV (benign positional vertigo) stable Hiatal hernia slight - occ reflux - no medications needed (diet dependent) Pericardial effusion 06/02/2024- s/p pericardiocentesis 06/03/24 - resolved on 06/05/24 ECHO History of atrial fibrillation dx 01/2024 HTN (hypertension) Presence of Watchman left atrial appendage closure device 11/10/2024- placed at [facility] Surgical History History of transesophageal echocardiography (MAXIMO) History of cardiac ablation 11/10/2024- for afib, 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 Extraocular moods are intact Throat: Posterior oropharynx clear without edema, erythema or exudate. Dentition is appropriate Cardiac: Regular rate and rhythm with no murmurs or gallops appreciated Lungs: Clear to auscultation throughout with no wheezing, rales or rhonchi Abdomen: Nonobese, nondistended, nontender with normoactive bowel sounds Extremities: Right hip; Sensation intact to light touch L3 to S1 dermatomes Palpable DP and PT pulses ROM: Flexion limited to 85 by groin pain/ Abduction 15/ External rotation 45/ Internal rotation 5 stiffness on the right compared to left with Log roll Positive KATIE test and knee is about 16 inches off the table Positive Stinchfield test Negative Shanika's test No Tenderness over trochanteric bursa, gluteus medius, Lumbosacral spine, SI joint Skin intact over the lateral hip Neuro: Cranial nerves II to XII intact no motor or sensory deficit Skin: Normal in appearance no open skin areas or discharge Results & Data Diagnostic Findings Studies (relevant to the procedure): AP pelvis, false profile, and cross-table lateral views of the right hip taken today and stored in [employer] system which shows severe central-pattern arthritis in the right hip, near [id number]. Evidence of cortical thinning
[~2025-07-02 07:00] MED LIST changes: +BUPIVACAINE 0.5 % 5 MG/1 ML PF 10ML VIAL ONE; -LISI-787 PO; +MIDAZOLAM HCL 1 MG/ML 2ML VIAL ONE
[2025-07-02] MEDS ORDERED: PROPOFOL IV EMULSION 10 MG/ML 20 ML VIAL IV ONE ×2 (07:26)
[2025-07-02] MEDS ORDERED: DEXAMETHASONE SOD INJ 4 MG/ML VIAL ONE (07:26)
[2025-07-02] MEDS ORDERED: ONDANSETRON INJ 2 MG/ML 2 ML VIAL ONE (07:26)
[2025-07-02] MEDS: LR 60ML/HR IV SCH (07:33)
[2025-07-02] MEDS: LR 500ML BOLUS, THEN 15ML/HR IV SCH (07:47)
[2025-07-02] MEDS: FAMOTIDINE 20 MG TAB PO SCH (07:49)
[2025-07-02] MEDS: CeleBREX 200 MG CAP PO SCH (07:49)
[2025-07-02] MEDS: ACETAMINOPHEN 500 MG TAB PO SCH (07:49)
[2025-07-02] MEDS: dexAMETHasone**PF** 10 MG/ML VIAL IV SCH (07:49)
[2025-07-02] MEDS ORDERED: ATROPINE SULFATE 0.1 MG/ML 10ML SYR IV PRN (08:25)
[2025-07-02] MEDS ORDERED: ONDANSETRON INJ 2 MG/ML 2 ML VIAL IV PRN ×2 (08:25→10:40)
--- NOTE | 2025-07-02 08:27 | History & Physical Bridge Note ---
Date of Service July 02, 2025 History & Physical Bridge Note I have examined the patient, reviewed the History & Physical and in the interval since the performance of the History & Physical I have noted the following changes of clinical significance: no changes noted
[2025-07-02] MEDS: TRANEXAMIC ACID 1,000 MG **IV Pre-op IV SCH (08:39)
[2025-07-02] MEDS ORDERED: ePHEDrine sulfate 50 MG/5 ML SYR ONE (09:26)
[2025-07-02] MEDS: ROPIVACAINE 0.5% HCL/PF 246 MG, Ketorolac (*for OR use only*) 30 MG, EPINEPHrine 30MG/3... INFIL SCH (09:27)
[2025-07-02] MEDS: ORTHO JOINT ANESTHETIC ONE (09:27)
--- NOTE | 2025-07-02 10:33 | Operative Report ---
Post Operative Report Pre & Post Diagnosis Operation Date: 07/02/25 09:00 Pre-Op Diagnosis: Unilateral Primary Osteoarthritis of Right Hip Post-Op Diagnosis: Unilateral Primary Osteoarthritis of Right Hip I identified the patient and participated in the time-out.: Yes Procedure Operation Date: 07/02/25 09:00 Actual Procedures p Right Total Hip Arthroplasty(Right) - Blake Duvall MD Surgeon Blake Duvall MD Head Tennis Coach HARPER Chin PA-C. No resident or fellow was available to assist. Estimated Blood Loss 100 Findings Consistent with Post-Op Diagnosis Specimens Right femoral head Anesthesia Type Spinal MAC Complications none Disposition Disposition: Recovery Room Indications 69-year-old female, with right hip osteoarthritis refractory to conservative management. I had a long discussion with her about the risks and benefits of surgery, alternatives to surgery, expected outcomes. After reviewing all these she elected proceed with surgery. All questions were answered. Informed consent was signed. Description of Procedure Patient was identified in the preoperative holding area where the surgical site, right hip, was marked. A spinal anesthetic was placed, then the patient was brought back to the main operating room, placed in the operating table and moved into the lateral decubitus position. Axillary roll was placed. All bony prominences were padded. Perioperative antibiotics and tranexamic acid 1 gram IV were administered. The operative extremity was prepped and draped in the normal sterile fashion. Prior to incision a multidisciplinary timeout was quinton villarreal. All in the room were in agreement. We began by making an incision for a posterior approach to the hip. We dissected down through subcutaneous tissues to the level of the fascia. The fascia was incised in line with the incision. Charnley bow was placed. Fatty tissue was reflected posteriorly off the back of the greater trochanter to expose the piriformis and short external rotators of the hip. Quadratus femoris was taken off the femur subperiosteally. The piriformis and short external rotators were dissected off the posterior aspect of the hip. A box cut was made in the capsule. Inferior hip capsule was released off the femur. The femoral head was dislocated. The femoral neck cut was made at our preoperative template. The acetabulum was then exposed. The labrum was sharply excised. Contents of the cotyloid fossa were removed with electrocautery. We then began reaming at a size 8 mm less than our preoperative template. We reamed up by 1 [address] the way up to a size 56 mm cup. This gave us good bleeding cancellus bone circumferentially. The acetabulum was then irrigated out and dried. The real [place] Gription cup was then impacted down into position with 40 degrees of lateral opening and 20 degrees of anteversion. A single cancellous bone screw was placed up into the ilium. Excellent fixation was obtained. The metal liner for dual mobility liner was impacted into place. Next we turned our attention to the femur. The lateral neck was removed with a box osteotome. Intramedullary guide was used to establish the intramedullary canal. We then broached all the way up to a size 6. We began trialing with a standard offset neck and a +1.5 head. Hip was reduced. Leg lengths were symmetric. The hip was stable in extension and external rotation, and stable in the sleeper position. At 90 degrees of hip flexion the hip could be internally rotated 80 degrees before levering out of the cup. I was very happy with the stability exam. Therefore the hip was dislocated and the femoral trial was removed. The femoral canal was irrigated and dried. The real Actis femoral stem was opened up. This was impacted down into position. The dual mobility femoral head was opened up, assembled on the back table, and gently impacted down onto the trunnion. The hip was atraumatically reduced. Another 1 gram of IV tranexamic acid was started prior to closure. The wound was irrigated out with sterile Betadine solution. The periarticular injection cocktail was then placed. The short external rotators, piriformis, and posterior capsule were repaired through drill holes in the greater trochanter using #2 Vicryl. The fascia was run with a looped #1 PDS. The subcutaneous layer was closed with #1 PDS. The dermal layer was closed with 2-0 Vicryl. Zip line was used for the skin followed by a Silverlon dressing. A compressive dressing was then placed. The patient was then rolled supine. Leg lengths were rechecked and were symmetric. An abduction pillow was placed. Sedation was lifted and the patient was transferred to the recovery room in stable condition. Summary of implants: Depuy [place] Gription Acetabular Shell Sector Cup, 56 mm outer diameter [place] Cancellous bone screw, 6.5 x 40 mm [place] hole eliminator [place] dual mobility liner, 56 x 49. DePuy Actis collared cementless Femoral stem, 07/05 taper, size 6 standard offset 49 x 28 bimentum Ultrex polyethylene bipolar head 28 mm ceramic femoral head with +1.5 offset Postoperative course: Patient will be admitted overnight from the recovery room. Patient will be weightbearing as tolerated with posterior hip precautions. Aspirin for DVT prophylaxis I attest to the content of the Intraoperative Record and any orders documented t herein. Any exceptions are noted below.
--- NOTE | 2025-07-02 10:37 | Operative Report ---
Post Operative Report Pre & Post Diagnosis Operation Date: 07/02/25 09:00 Pre-Op Diagnosis: Unilateral Primary Osteoarthritis of Right Hip Post-Op Diagnosis: Unilateral Primary Osteoarthritis of Right Hip I identified the patient and participated in the time-out.: Yes Procedure Operation Date: 07/02/25 09:00 Actual Procedures p Right Total Hip Arthroplasty(Right) - Blake Duvall MD Surgeon Blake Duvall MD Crate Builder HARPER Chin PA-C. No resident or fellow was available to assist. Estimated Blood Loss 100 Findings Consistent with Post-Op Diagnosis Specimens femoral head Description of Procedure I was present during the entire case assisting with positioning, prepping, draping, wound retraction, wound closure, dressing and abduction pillow placement. No fellow present. Please see Dr. Duvall operative note for specifics of the case. I attest to the content of the Intraoperative Record and any orders documented therein. Any exceptions are noted below.
[2025-07-02] MEDS ORDERED: diphenhydrAMINE 50 MG/ML VIAL IV PRN (10:40)
[2025-07-02] MEDS ORDERED: MAGNESIUM HYDROXIDE SUSP 30 ML UDC PO PRN (10:40)
[2025-07-02] MEDS ORDERED: NALOXONE HCL 0.4 MG/1 ML VIAL/CARP IV PRN (10:40)
[2025-07-02] MEDS ORDERED: ALUMINUM/MAGNESIUM SUSP 30 ML UDC PO PRN (10:40)
[2025-07-02] MEDS ORDERED: METOCLOPRAMIDE HCL INJ 5 MG/ML 2 ML VIAL IV PRN (10:40)
--- NOTE | 2025-07-02 11:34 | Anesthesiology Progress Note ---
Date of Service July 02, 2025 Anesthesia Post Procedure Vital Signs Vital Signs: Temp Pulse Resp BP Pulse Ox O2 Del Method 07/02/25 11:00 64 15 108/58 L 96 Room Air 07/02/25 10:50 65 14 108/58 L 100 Room Air 07/02/25 10:40 71 15 108/59 L 100 Room Air 07/02/25 10:36 97.5 F L 73 18 111/64 98 Room Air 07/02/25 07:09 98.1 F 70 20 146/88 H 99 Room Air Pain Intensity Right Hip: Pain Intensity: 7 Transfer of Care Handoff Completed per policy Notes Mental Status: alert / awake / arousable and participated in evaluation Patient Amnestic to Procedure: Yes Nausea / Vomiting: adequately controlled Pain: adequately controlled Airway Patency, RR, SpO2: stable & adequate BP & HR: stable & adequate Hydration State: stable & adequate Neuraxial Anesthesia: was administered and sensory block is resolving Anesthetic Complications: no major complications apparent and Pt Satisfied with anesthetic care
--- NOTE | 2025-07-02 11:45 | XRay Report ---
XR pelvis 1-2V routine HISTORY: 69 years-old Female In PACU - Post Surgical right hip arthroplasty COMPARISON: Pelvis radiograph 06/12/2025 TECHNIQUE: AP view the pelvis FINDINGS: Mild osteoarthritis of the left hip. Satisfactory alignment of the right hip arthroplasty. Expected p ostoperative soft tissue swelling with deep tissue air. IMPRESSION: Satisfactory alignment of the right hip arthroplasty. ACT 112: Negative or not required by law. The above report was generated using voice recognition software. It may contain grammatical, syntax o r spelling errors. Electronically signed by: Stanislaw Avila M.D. 07/02/2025 11:43 AM
[2025-07-02] MEDS: KETOROLAC TROMETHAMINE 15 MG/ML VIAL IV SCH (14:12)
[2025-07-02] MEDS: SODIUM CHLORIDE 0.9% 1,000 ML IV SCH (14:28)
[2025-07-02] MEDS: ACETAMINOPHEN 325 MG TAB PO PRN (14:36)
[2025-07-02] MEDS: Scopolamine CHECK PATCH PLACEMENT SCH (16:14)
[2025-07-02] MEDS: METOPROLOL SUCC 25MG EXT REL TAB PO SCH (21:36)
[2025-07-02] MEDS: DOCUSATE SODIUM 100 MG CAP PO SCH (21:37)
[2025-07-02] MEDS: SENNA 8.6 MG TAB PO SCH (21:37)
[2025-07-03 06:42] LABS: Hematocrit (blood only) 30.9 % (37.0-47.0); Hemoglobin 10.6 g/dL (12.0-16.0); Immature Granulocytes # (auto) 0.05 K/uL (0.01-0.20); Immature Granulocytes % (auto) 0.4 %; Mean Corpuscular Hemoglobin 31.5 pg (25.0-34.0); Mean Corpuscular Volume 92.0 fL (80.0-100.0); Platelet Count 213 K/uL (130-400); RDW Standard Deviation 43.1 fL (36.4-46.3); Red Blood Count 3.36 M/uL (4.20-5.40); White Blood Count 11.26 K/ul (4.8-10.8)
[2025-07-03 07:05] LABS: Anion Gap 4.0 (3-11); Blood Urea Nitrogen 16.0 mg/dl (6-23); Calcium 8.7 mg/dl (8.6-10.3); Carbon Dioxide 24.0 mmol/L (21-32); Chloride 112.0 mmol/L (98-107); Creatinine Clr Calc Pharmacy 80.1 ml/min; Glucose 123.0 mg/dl (70-99(Fasting)); Potassium 4.6 mmol/L (3.5-5.1); Sodium 140.0 mmol/L (136-145)
[2025-07-03] MEDS: ASPIRIN 81 MG ECTAB PO SCH (08:16)
[2025-07-03] MEDS: MULTIVITAMIN TAB PO SCH (08:17)
[2025-07-03] MEDS ORDERED: NON-FORMULARY MEDICATION (Multivitamin Tablet) PO SCH (09:00)
[2025-07-03] MEDS: SODIUM CHLORIDE 0.9% 1,000 ML IV ONE (09:39)
[2025-07-03] MEDS: CeleBREX 200 MG CAP PO SCH (09:57)
[2025-07-03] MEDS: dexAMETHasone 10 MG in SYRINGE 0 ML IV SCH (09:59)
--- NOTE | 2025-07-03 10:25 | Orthopedic Progress Note ---
Date of Service July 03, 2025 Assessment & Plan (1) S/P total hip arthroplasty: Plan: Total hip precautions reviewed Weightbearing as tolerated with walker assistance PT/OT Pain control with p.o. medication DVT prophylaxis with aspirin and MIHAELA stockings Ice with easy wrap Abduction pillow use x 6 weeks Keep Silverlon dressing in place until follow-up Plan is to discharge home later today with in-home physical therapy. PT and OT will reevaluate this afternoon as long as she does not become hypotensive while performing the protocol we will let her go home. Follow-up with [facility] orthopedics as previously scheduled With questions contact our clinic at [phone] Admission and Anticipated Discharge Date Admission Date: July 02, 2025 Subjective This 69-year-old female who is day 1 status post right total hip arthroplasty. Patient was doing physical therapy this morning and while doing the stairs she became hypotensive and very nauseous. Currently she is sitting in bed and states that she does feel little bit better. I did order a liter of normal saline for her. She states that her hip feels great. She states that her pain is much less now than it was prior to the surgery. Currently she denies chest pain, shortness of breath, fever, chills, sweats, vomiting, diarrhea, difficulty voiding or numbness or tingling in her right lower extremity. Review of Systems Review of Systems: All systems reviewed & are unremarkable except as noted in Subjective Physical Exam Physical Exam: Right hip; Outer dressing was removed. Silverlon is clean dry intact and left in place. Patient is able to perform active straight leg raise test. She is able to actively dorsi and plantarflex her foot without issue. Her quad strength is 4 out of 5. She tolerates passive hip flexion to 80 degrees and only experiences some slight discomfort with light passive internal rotation. She has no pain with external rotation. Logroll test causes no discomfort. She is neurovascularly intact in the right lower extremity. Results & Data Vital Signs (Past 12 Hours) Vital Signs Temp Pulse Pulse Resp BP BP Pulse Ox 07/03/25 07:50 36.6 C 68 14 120/74 99 07/03/25 07:30 36.6 C 63 16 114/74 97 07/03/25 04:29 36.7 C 79 16 125/78 95 07/02/25 23:48 36.3 C L 79 17 125/80 99 O2 Del Method 07/03/25 07:50 Room Air 07/03/25 07:30 Room Air 07/03/25 04:29 Room Air 07/02/25 23:48 Room Air Diagnostic Findings Laboratory Results WBC 11.26 K/ul (4.8-10.8) H 07/03/25 06:25 RBC 3.36 M/uL (4.20-5.40) L 07/03/25 06:25 Hgb 10.6 g/dL (12.0-16.0) L 07/03/25 06:25 Hct 30.9 % (37.0-47.0) L 07/03/25 06:25 MCV 92.0 fL (80.0-100.0) 07/03/25 06:25 MCH 31.5 pg (25.0-34.0) 07/03/25 06:25 MCHC 34.3 g/dL (32.0-36.0) 07/03/25 06:25 RDW Std Deviation 43.1 fL (36.4-46.3) 07/03/25 06:25 RDW Coeff of Pepe 12.9 % (11.5-14.5) 07/03/25 06:25 Plt Count 213 K/uL (130-400) 07/03/25 06:25 MPV 8.9 fL (9.4-12.4) L 07/03/25 06:25 Immature Gran % (Auto) 0.4 % 07/03/25 06:25 Neut % (Auto) 84.0 % 07/03/25 06:25 Lymph % (Auto) 5.8 % 07/03/25 06:25 [place] % (Auto) 9.6 % 07/03/25 06:25 Eos % (Auto) 0.0 % 07/03/25 06:25 Baso % (Auto) 0.2 % 07/03/25 06:25 Neut # (Auto) 9.46 K/uL (1.40-6.50) H 07/03/25 06:25 Lymph # (Auto) 0.65 K/uL (1.20-3.40) L 07/03/25 06:25 [place] # (Auto) 1.08 K/uL (0.11-0.59) H 07/03/25 06:25 Eos # (Auto) 0.00 K/uL (0.00-0.50) 07/03/25 06:25 Baso # (Auto) 0.02 K/uL (0.00-0.20) 07/03/25 06:25 Immature Gran # (Auto) 0.05 K/uL (0.01-0.20) 07/03/25 06:25 Sodium 140 mmol/L (136-145) 07/03/25 06:25 Potassium 4.6 mmol/L (3.5-5.1) 07/03/25 06:25 Chloride 112 mmol/L (98-107) H 07/03/25 06:25 Carbon Dioxide 24 mmol/L (21-32) 07/03/25 06:25 Anion Gap 4 (3-11) 07/03/25 06:25 BUN 16 mg/dl (6-23) 07/03/25 06:25 Creatinine 0.65 mg/dl (0.6-1.2) 07/03/25 06:25 Est Cr Clr Drug Dosing 80.1 ml/min 07/03/25 06:25 eGFR 94.07 07/03/25 06:25 BUN/Creatinine Ratio 24.6 (10-20) H 07/03/25 06:25 Glucose 123 mg/dl (70-99(Fasting)) H 07/03/25 06:25 Calcium 8.7 mg/dl (8.6-10.3) 07/03/25 06:25 Impressions Pelvis X-Ray 07/02/25 10:40 XR pelvis 1-2V routine HISTORY: 69 years-old Female In PACU - Post Surgical right hip arthroplasty COMPARISON: Pelvis radiograph 06/12/2025 TECHNIQUE: AP view the pelvis FINDINGS: Mild osteoarthritis of the left hip. Satisfactory alignment of the right hip arthroplasty. Expected postoperative soft tissue swelling with deep tissue air. IMPRESSION: Satisfactory alignment of the right hip arthroplasty. ACT 112: Negative or not required by law. The above report was generated using voice recognition software. It may contain grammatical, syntax or spelling errors. Electronically signed by: Stanislaw Avila M.D. 07/02/2025 11:43 AM
--- NOTE | 2025-07-03 10:50 | Discharge Summary ---
Date of Service July 03, 2025 Admission HPI Per Admitting Provider History of Present Illness (including history relevant to procedure): This 69-year-old female presents to the clinic today for her preoperative history and physical. Patient complains of a several year history of right sided hip pain primarily in her groin and posterolateral aspect of her hip. Patient states she has had 2 intra-articular corticosteroid injections and done extensive physical therapy with no real relief. She states that it is affecting her activity level greatly. She states that currently she is utilizing Tylenol for pain relief. Due to failed conservative management patient is electing to proceed with surgical intervention. Review Of Systems: A 12 point review of systems is performed and is unremarkable except for those things stated in the HPI past medical history. Past Medical History: Problems: Osteoarthritis of right hip S/P total right hip arthroplasty Right hip pain Afib Grade II diastolic dysfunction Mild concentric left ventricular hypertrophy (LVH) Mild pulmonary hypertension Difficulty swallowing solids Heart murmur Vitamin D insufficiency Osteoporosis Hypertension, benign Hernia, hiatal Benign paroxysmal positional vertigo IT band syndrome Trochanteric bursitis of right hip Procedure History Procedure Procedure Date Comments Repair of vaginal tear Esophagogastroduodenoscopy Closed drainage of pericardial effusion - 500ml. Drained at [facility]. Likely viral Colonoscopy 12/04/2023 - Repeat colonoscopy in 5 years for family history of colon cancer. - C) Hepatic flexure polyp, polypectomy:Colonic mucosa with lymphoid aggregate, negative for intraepithelial neoplasm.D) Colon polyp at 45 cm, polypectomy:Hyperplastic polyp. - - One 3 mm polyp at the hepatic flexure, removed with a cold biopsy forceps. Resected and retrieved. - One 3 mm polyp at 45 cm proximal to the anus, removed with a cold biopsy forceps. Resected and retrieved. - Redundant colon. - The examination was otherwise normal on direct and retroflexion views. EGD - esophagogastroduodenoscopy 12/04/2023 - A) Gastric antrum, biopsy:Congestion and epithelial repair compatible with reactive gastropathy-healing erosive gastritis.COMMENT:No Helicobacter pylori organisms can be identified on an immunohistochemical stain for H. pylori.B) Gastroesophageal junction, biopsy:Squamous mucosa with patchy, mild epithelial repair.Gastric columnar mucosa with mild chronic inflammation and epithelial repair.COMMENT:No intestinal metaplasia or dysplasia identified. The histologic findings in B may correlate with symptoms of reflux. - - Esophagogastric landmarks identified. - 1 cm hiatal hernia. - Mild Schatzki ring. Biopsied. - Erythematous mucosa in the antrum. Biopsied. - Normal examined duodenum. - The examination was otherwise normal. Mammogram 05/19/2021 - There is no mammographic evidence of malignancy DEXA (dual energy X-ray absorptiometry) of lateral spine 05/19/2021 - Impression: AP Spine L1-L4 is 0.811 g/cm2 with T score of -3.1 Femur Neck Left is 0.808 g/cm2 with T score of -1.7. Femur Neck Right is 0.764 g/cm2 with T score of -2.0. Femur Total Left is 0.840 g/cm2 with T score of -1.3 Femur Total Right is 0.784 g/cm2 with T score of -1.8. Z - score of 1.5, this patient's BMD is low for someone of this age Bone density scan 04/10/2019 - AP spine L1- L4 is 0.794 with a T score of -3.2Femur Neck left is 0.829 with a Tscore of -1.5Femur Neck right is 0.765 with a Tscore of -2.0Femur Total Mean is 0.769 with a T score of -1.9Z score of -1.6 , this patients BMD is low for someone of this age Cervical cytology brush 01/15/2019 - Negative for intraepithelial lesion or malignancy. Mammogram 11/26/2018 - acr bi-rads category 2: benign there is no mammographic evidence of malignancy. a 1 yr screening mammogram is recommended. (11/26/18). the patient will receive written notification of the results Colonoscopy 11/21/2018 - A few diverticula were found in the sigmoid colon Mammogram 12/22/2016 - No malignancy. One year screening recommended. PAP test date 12/08/2016 - Negative for intraepithealial lesion or malignancy. - normal exam Chest x-ray 11/25/2016 - negative EKG 11/25/2016 - normal sinus Emergency medical services 11/25/2016 - [facility] ER with vertigo and hypertension CT brain w/o contrast Cardiac ablation Watchman procedure Appendectomy 11/26/2015 03/20/2025 - no acute intracranial abnormality -[facility] Allergies and Sensitivities: Allergy Not found in Search(Facial Swelling) Allergy Not found in Search(French peppers of all colors) Current Home Meds: (Last Updated 06/12 14:01) aspirin (aspirin 81 mg oral delayed release tablet) 81 mg PO Daily cholecalciferol (Vitamin D3 1000 intl units (25 mcg) oral capsule) 25 mcg PO Daily dilTIAZem (Cartia XT 120 mg/24 hours oral capsule, extended release) 1 cap PO Daily ibandronate (ibandronate 150 mg oral tablet) TAKE 1 TABLET EVERY MONTH metoprolol (Metoprolol Succinate ER 25 mg oral tablet, extended release) 25 mg PO Daily multivitamin 1 tab PO Daily Admission Exam Per Admitting Provider Initial Wt: 06/12 72.5 kg 160 lb Physical Exam: (relevant to the procedure, including heart and lung evaluation) General: Alert and oriented x 3 appropriate mood and hygiene Eyes: Pupils are equal reactive to light with accommodation. Extraocular moods are intact Throat: Posterior oropharynx clear without edema, erythema or exudate. Dentition is appropriate Cardiac: Regular rate and rhythm with no murmurs or gallops appreciated Lungs: Clear to auscultation throughout with no wheezing, rales or rhonchi Abdomen: Nonobese, nondistended, nontender with normoactive bowel sounds Extremities: Right hip; Sensation intact to light touch L3 to S1 dermatomes Palpable DP and PT pulses ROM: Flexion limited to 85 by groin pain/ Abduction 15/ External rotation 45/ Internal rotation 5 stiffness on the right compared to left with Log roll Positive KATIE test and knee is about 16 inches off the table Positive Stinchfield test Negative Shanika's test No Tenderness over trochanteric bursa, gluteus medius, Lumbosacral spine, SI joint Skin intact over the lateral hip Neuro: Cranial nerves II to XII intact no motor or sensory deficit Skin: Normal in appearance no open skin areas or discharge Principal Diagnosis Right hip osteoarthritis Discharge Exam Right hip; Outer dressing was removed. Silverlon is clean dry intact and left in place. Patient is able to perform active straight leg raise test. She is able to actively dorsi and plantarflex her foot without issue. Her quad strength is 4 out of 5. She tolerates passive hip flexion to 80 degrees and only experiences some slight discomfort with light passive internal rotation. She has no pain with external rotation. Logroll test causes no discomfort. She is neurovascularly intact in the right lower extremity. Discharge Data Allergies Allergy/AdvReac Type Severity Reaction Status Date / Time french pepper Allergy Intermediate facial Verified 07/02/25 07:30 swelling Procedures Performed Operation Date: 07/02/25 09:00 Actual Procedures p Right Total Hip Arthroplasty(Right) - Blake Duvall MD Hospital Course (1) S/P total hip arthroplasty: Overnight patient's today following right total hip arthroplasty was unremarkable, however today she did become hypotensive and nauseous while doing stairs with physical therapy. A liter of normal saline ordered was bolused. Patient will be reevaluated later today again by PT and OT. If her vitals stay normal and she is asymptomatic she will be discharged home. Total hip precautions reviewed Weightbearing as tolerated with walker assistance PT/OT Pain control with p.o. medication DVT prophylaxis with aspirin and MIHAELA stockings Ice with easy wrap Abduction pillow use x 6 weeks Keep Silverlon dressing in place until follow-up Plan is to discharge home later today with in-home physical therapy. PT and OT will reevaluate this afternoon as long as she does not become hypotensive while performing the protocol we will let her go home. Follow-up with [facility] orthopedics as previously scheduled With questions contact our clinic at [phone] Total Time Total Time Spent Total Time Spent (In Minutes): 30 mins Discharge Plan Discharge Items Patient Disposition: Home - Home Health Services Reason For Visit: POST SURGICAL CARE Discharge Diagnosis: s/p Right total hip arthroplasty Activity: As commented below Lifting: None Bathing: Keep incision dry Bathing Comment: May shower today Sexual Activity: Wait until after follow-up appointment Exercise/Sports: Wait until after follow-up appointment Driving/Machine Use: No driving until cleared by computer system validation specialist Weightbearing: Right weightbearing Weightbearing Comment: w/ walker assistance Non-emergency contact: Surgeon Call non-emergency contact if: you have any medication questions, your pain is not controlled, your temperature is above 101.5, your wound has increased drainage and your wound pain has increased Follow-up/Referrals: Anya Ocasio MD [Primary Care Provider] - Diet: Regular Addtl Attending Provider Instructions: Post-operative Instructions Dear Patient and Family/Friends, Before you are discharged from the hospital, it is important to know what to expect when you get home after surgery. To that end, we have created this sheet of discharge instructions which covers many commonly asked questions. Make sure you go through this sheet in its entirety with your nurse before you are discharged. Please note that we will go over the specifics of your surgery and recovery when you return for your first post-operative visit. Sincerely, Dr. Duvall Medications 1. Oxycodone 5 mg: take 1-2 tabs every 4-6 hours as needed for post operative pain control. This will be sent to your pharmacy. 2. Diclofenac Sodium 75 mg: take 1 tab twice daily for 30 days post operatively for pain and inflammation relief. This will be sent to your pharmacy with 1 refill. 3. Aspirin 81 mg: increase your aspirin regimen to twice daily for the first 30 days post operatively for blood clot prevention 4. Extra Strength Tylenol 325mg: Resume your normal regimen of Tylenol for supplemental pain control Pain Expect to be in a fair amount of pain after surgery. Remember, our goal is not to eliminate your pain, but to make it tolerable. It is a good idea to stay ahead of your pain by taking the medications you were prescribed once you get home. Typically, the pain starts improving 3-7 days after surgery. You should start weaning off the narcotic pain medication (oxycodone, hydrocodone, hydromorphone, morphine) as soon as your pain improves. Please call our office if your pain is not adequately controlled. Ice Ice your operative site at least 5 times a day for 15-30 minutes at a time. Make sure you have a thin cloth between the ice or cooling unit and your skin to prevent gutierrez bite. This is especially important if you received a nerve block. Continue icing your operative site for the first 5-7 days after surgery, then as needed. Diet/Nausea/Vomiting Start by drinking clear liquids and eating crackers. If you can tolerate this, then you may resume your normal diet. If you feel nauseated or vomit, take Zofran/ondansetron (if prescribed). Please call our office if you have intractable nausea or vomiting, or, if after hours, you may go to the Emergency Room for help. Constipation Constipation is a common side effect of narcotic pain medication. If you have not had a bowel movement within 2 days after surgery, we recommend purchasing an over the counter laxative such as Milk of Magnesia, Dulcolax, or Miralax from a local pharmacy, and taking it as instructed. Call our clinic if any questions. Nerve block The anesthesia team sometimes places a nerve block to help with post-operative pain control. This results in significant numbness and inability to move the extremity. The nerve block usually wears off in 8-12 hours, but sometimes can last up to 24 hours. Please call our office if you are still unable to move your extremity after 24 hours, unless you received a pain pump to take home. Nerve blocks typically wear off quickly, so start taking pain medication as soon as you start feeling soreness near your surgical site. Weight bearing and Range of Motion. Do not bear any weight through your operative extremity immediately after surgery. If you had upper extremity surgery, do not lift anything with that arm. If you are in a knee brace, keep it locked in place until your follow-up. We will discuss your weight bearing, range of motion, and lifting restrictions in detail at your first post-operative appointment. Continuous Passive Motion (CPM) Machine If you were prescribed a CPM machine, it will start after your first post- operative appointment, at which time we will give you instructions on the range of motion settings and duration of treatment Physical therapy You will be given a prescription for physical therapy or occupational therapy at your first post-operative appointment. Typically, patients start therapy within 1 week of surgery Wound care and showering We will inspect your wound at your first post-operative visit, and may do a dressing change at that time. Most patients will be in a water-proof dressing that is removed 14 days after surgery. It is normal to see some dried blood on the dressing. Do not remove your dressing, paper strips or sutures yourself unless you are given permission. Showering is allowed the day after surgery. Do not scrub or remove any dressings. The wound should not be submerged underwater (i.e. in a bathtub or pool) until 4 weeks after surgery MIHAELA stockings If you were given white stockings, these are to be worn at all times except to shower (on both legs) for the first 2 weeks after surgery. Driving You may not drive while taking narcotic pain medication or while in a cast, splint, sling or brace. You, the patient, need to make the final determination about when you are safe to drive, however, the earliest you may consider driving after surgery is below: Hand/Wrist/Elbow Surgery: 3 days Shoulder Surgery: 2 weeks Hip,/Knee/Ankle Surgery: 4 weeks Fracture repair: 6 weeks Return to Work Your return to work depends on what surgery was done and what type of work you do. Please bring any paperwork your employer needs completed to your first post-operative visit. Also, bring a description of your job duties, as this helps us to understand what risks you may face at work. Travel Avoid long distance travel (greater than 1 hour) in airplanes and cars for the first 6 weeks after surgery. If you must travel, you need to have a Doppler ultrasound done before you travel to rule out a blood clot in your legs. Follow-up You should have a follow-up appointment already scheduled 1-2 days after surgery. If not, please contact our office to make this appointment before you leave the hospital. When to call the office It is normal to have swelling and bruising in the limb that was operated on. This will improve with time. It is also normal to have fevers for the first 2 days after surgery. Reasons you should call your doctor include: Uncontrolled pain; Nausea, vomiting, or constipation that does not improve with medication; F myrna over 101.5, chills, sweats; Drainage or bleeding from the wound; Foul odor; Spreading areas of redness; Any other concerns. Contact Information Please call Dr. Duvall's office at [phone] with any concerns. Pending Studies at Discharge: No Stand-Alone Forms: My [employer], Smoking Cessation Medications and DC Order Prescriptions: New oxycodone 5 mg Tablet 5 - 10 mg PO Q4H MDD max 6/day PRN (Reason: Post op pain control) Qty: 28 0RF diclofenac sodium 75 mg tablet,delayed release (DR/EC) 75 mg PO BID 30 Days Qty: 60 1RF Continued ibandronate 150 mg tablet 150 mg PO MONTHLY multivitamin Tablet 1 tab PO DAILY acetaminophen 650 mg Tablet Extended Release 650 mg PO UD Rx Instructions: per pt she may take once or twice a day metoprolol succinate 25 mg Tablet Extended Release 24 Hr 25 mg PO HS diltiazem HCl 120 mg capsule,extended release 24hr 120 mg PO DAILY PRN (Reason: Pain) Patient Comments: qam Changed aspirin 81 mg Capsule 81 mg PO BID Qty: 0 0RF Discharge Orders: Discharge Order (Routine); Ordered 07/03/25 Ordered By: Krishna Chin Admission Data Admit Date/Time: 07/02/25 10:40 Attending Provider: Blake Duvall Admit Provider: Blake uDvall Primary Care Provider: Anya Ocasio Other Providers: [facility]; [facility]
[2025-07-03 14:36] VITALS: BP 101/67; PULSE 64; RESP 16; TEMP 98.1; O2SAT 97
[2025-07-05] MEDS ORDERED: Scopolamine REMOVE TRANSDERM PATCH ONE (08:00)
== END 2025-07-03 16:36 | disposition home health service (06) | DRG 470 ==
LOC: ASU 07:00 → 3E 10:40